=== PATIENT | female | born 1945 | race African-American/Black ===

== ENCOUNTER 2017-10-28 16:30 | Inpatient (IN) | payer MEDICARE ==
[2017-10-28] MEDS ORDERED: NORMAL SALINE 1000 ML 1,000 ML IV ONE ×2 (16:50→18:31)
[2017-10-28] MEDS ORDERED: ONDANSETRON 4 MG TAB.RAPDIS PO ONE (16:59)
--- NOTE | 2017-10-28 16:59 | ER Document Report ---
ED Medical Screen (RME) - General Chief Complaint: High Blood Sugar Stated Complaint: BLOOD SUGAR ISSUES Time Seen by Provider: 10/28/17 16:46 Notes: RAPID MEDICAL EVALUATION DISCLOSURE I have seen this patient as part of a Rapid Medical Evaluation and, if applicable, placed any initially appropriate orders. The patient will be seen and fully evaluated, including a full history and physical exam, by a provider ( in Main ED or Fast Track) when a room becomes available. 72F pmh DM here w c/o gen weakness feeling tired n/v epigastric pain ongoing past 3-4 days. She has been unable to keep her DM pills down 2/2 vomiting. She has been visiting her sister here in the hospital who is admitted for GI issues. Denies any cough congestion runny nose dysuria. EXAM Moderately tachycardic No abdominal TTP TRAVEL OUTSIDE OF THE [place] IN LAST 30 DAYS: No - Related Data Allergies/Adverse Reactions: No Known Allergies Allergy (Unverified 01/04/15 09:44) Past Medical History - Past Medical History Cardiac Medical History: Reports: Hx Hypertension - white coat syndrome Denies: Hx Heart Attack Pulmonary Medical History: Denies: Hx Asthma Neurological Medical History: Denies: Hx Cerebrovascular Accident, Hx Seizures GI Medical History: Denies: Hx Hepatitis, Hx Hiatal Hernia, Hx Ulcer Infectious Medical History: Denies: Hx Hepatitis Past Surgical History: Denies: Hx Mastectomy, Hx Open Heart Surgery, Hx Pacemaker Physical Exam - Vital signs Vitals: Temp Pulse Resp BP Pulse Ox 98.9 F 143 H 20 229/111 H 98 10/28/17 16:37 10/28/17 16:37 10/28/17 16:37 10/28/17 16:37 10/28/17 16:37 Course - Vital Signs Vital signs: Temp Pulse Resp BP Pulse Ox 98.9 F 143 H 20 229/111 H 98 10/28/17 16:37 10/28/17 16:37 10/28/17 16:37 10/28/17 16:37 10/28/17 16:37
[2017-10-28 17:22] LABS: HEMOGLOBIN 12.7 g/dL (12.0-15.5); MEAN CORPUSCULAR HGB CONC 34.4 g/dL (32.0-36.0); MEAN CORPUSCULAR VOLUME 96 fl (80-97); PLATELET COUNT 337 10^3/uL (150-450); RED BLOOD COUNT 3.85 10^6/uL (3.72-5.28); RED CELL DISTRIBUTION WIDTH 14.4 % (11.5-14.0)
[2017-10-28] MEDS ORDERED: METOPROLOL TARTRATE PF/INJ 5 MG/5 ML SDV IV ONE ×2 (17:34→19:02)
[2017-10-28 17:37] LABS: ABSOLUTE LYMPHOCYTES# (MANUAL) 0.3 10^3/uL (0.5-4.7); ABSOLUTE MONOCYTES # (MANUAL) 0.1 10^3/uL (0.1-1.4); ABSOLUTE NEUTROPHILS# (MANUAL) 8.6 10^3/uL (1.7-8.2); BAND NEUTROPHILS % (MANUAL) 2 % (3-5); BASOPHILS % (MANUAL) 0 % (0-2); EOSINOPHILS % (MANUAL) 0 % (0-6); LYMPHOCYTES % (MANUAL) 3 % (13-45); MONOCYTES % (MANUAL) 1 % (3-13); SEGMENTED NEUTROPHILS % (MAN) 94 % (42-78); TOTAL CELLS COUNTED 100; VENOUS BLOOD BASE EXCESS -2.1 mmol/L; VENOUS BLOOD HCO3 23.3 mmol/L (20-32); VENOUS BLOOD PCO2 42.5 mmHg (35-63); VENOUS BLOOD PH 7.36 (7.30-7.42)
[2017-10-28 17:39] LABS: ANISOCYTOSIS SLIGHT; PLATELET COMMENT ADEQUATE; TOXIC VACUOLATION PRESENT
--- NOTE | 2017-10-28 18:11 | ER Document Report ---
ED General - General Chief Complaint: High Blood Sugar Stated Complaint: BLOOD SUGAR ISSUES Time Seen by Provider: 10/28/17 16:46 Notes: Patient was noted by her family members today to the speaking incoherently. She was here at [facility] visiting her sister who is an inpatient. Patient is a diabetic on pills alone, and has had a previous episode like this when her blood sugar was very high. She has also been sick this past week, unable to take her medicines because of an upset stomach. She has vomited 2 or 3 times during this week. Not eating or drinking well. Denies any fever. Family says that she has had chills. No apparent UTI symptoms and does not get frequent UTIs. PMH: Hypertension, NIDDM. TRAVEL OUTSIDE OF THE [place] IN LAST 30 DAYS: No - Related Data Allergies/Adverse Reactions: No Known Allergies Allergy (Unverified 01/04/15 09:44) Past Medical History - Social History Smoking Status: Never Smoker Chew tobacco use (# tins/day): No Frequency of alcohol use: None Drug Abuse: None Family History: Reviewed & Not Pertinent Patient has suicidal ideation: No Patient has homicidal ideation: No - Past Medical History Cardiac Medical History: Reports: Hx Hypertension - white coat syndrome Infectious Medical History: Denies: Hx Hepatitis Surgical Hx: Negative Review of Systems - Review of Systems Notes: REVIEW OF SYSTEMS: CONSTITUTIONAL : Denies fever but has had chills. EENT: Denies eye, ear, nose or mouth or throat pain or other symptoms. CARDIOVASCULAR: Denies chest pain. RESPIRATORY: Denies cough, chest congestion, or shortness of breath. GASTROINTESTINAL: Denies abdominal pain. Has had vomiting about 3 times. No diarrhea. GENITOURINARY: Denies difficulty or painful urinating, urinary frequency, blood in urine. MUSCULOSKELETAL: Denies back or neck pain. Denies joint pain or swelling. SKIN: Denies rash or skin lesions. NEUROLOGICAL: See HPI. Confused, according to the family. Denies headache. Denies sensory loss or motor deficits. ALL OTHER SYSTEMS REVIEWED AND NEGATIVE. Physical Exam - Vital signs Vitals: Temp Pulse Resp BP Pulse Ox 98.9 F 143 H 20 229/111 H 98 10/28/17 16:37 10/28/17 16:37 10/28/17 16:37 10/28/17 16:37 10/28/17 16:37 Initial heart rate 143. Blood pressure 229/111 in triage. Subsequently systolic blood pressure of 265. Interpretation: Hypertensive, Tachycardic. No: Hypoxic, Tachypneic, Febrile - Notes Notes: PHYSICAL EXAMINATION: GENERAL: Well-appearing, in no acute distress. Laying on the stretcher with her eyes closed. Seems to understand all questions that are being asked of her and follows commands appropriately. HEAD: Atraumatic, normocephalic. EYES: Pupils equal round and reactive to light, extraocular movements intact. ENT: oropharynx clear without exudates. Moist mucous membranes. NECK: Normal range of motion, supple. LUNGS: Breath sounds clear and equal bilaterally. HEART: Regular rate and rhythm without murmurs. Heart rate about 130 at the bedside by me. ABDOMEN: Soft, nontender. No guarding or rebound. No masses. No bruits heard. BACK: No tenderness throughout entire back. EXTREMITIES: Normal range of motion without pain. No swelling. NEUROLOGICAL: Normal speech, gait not tested. Normal sensory, motor, and reflex exams. Awake, alert, and oriented x3. PSYCH: Normal mood, normal affect. SKIN: Warm, dry, no rashes. Course - Re-evaluation Re-evalutation: 10/28/17 20:00 Since arrival, patient received 5 mg of Lopressor IV but not showing much effect from that medication. She was then given 10 mg of Lopressor IV. She still continued to have blood pressure of 216/114 with a heart rate of 109. Patient had an episode of substernal chest pain which she had not had earlier in her ER visit. Spoke with Dr. Ansari, and the hospitalist on-call, and he will admit the patient to ICU for hypertensive emergency. After I went back to tell the patient how we plan to handle her care with an admission to ICU, patient said that she was feeling much better and noted that her systolic blood pressure now was 170 and her heart rate was down to 107. Patient has her eyes open and is smiling and says she feels much better. - Vital Signs Vital signs: Temp Pulse Resp BP Pulse Ox 98.9 F 143 H 18 228/118 H 99 10/28/17 16:37 10/28/17 16:37 10/28/17 18:02 10/28/17 18:02 10/28/17 17:21 - Laboratory Result Diagrams: 10/28/17 17:07 10/28/17 18:17 Laboratory results interpreted by me: 10/28/17 10/28/17 10/28/17 16:48 17:07 17:07 RDW 14.4 H Seg Neuts % (Manual) 94 H Band Neutrophils % 2 L Lymphocytes % (Manual) 3 L Monocytes % (Manual) 1 L Abs Neuts (Manual) 8.6 H Abs Lymphs (Manual) 0.3 L Sodium Chloride BUN Est GFR (Non-Af Amer) Glucose POC Glucose 338 H Lactic Acid 2.9 H Total Protein TSH Free T4 Urine Protein Urine Glucose (UA) Urine Ketones Urine Blood Ur Leukocyte Esterase 10/28/17 10/28/17 10/28/17 18:17 18:17 19:02 RDW Seg Neuts % (Manual) Band Neutrophils % Lymphocytes % (Manual) Monocytes % (Manual) Abs Neuts (Manual) Abs Lymphs (Manual) Sodium 131.9 L Chloride 89 L BUN 25 H Est GFR (Non-Af Amer) 50 L Glucose 330 H POC Glucose Lactic Acid Total Protein 8.6 H TSH 0.19 L Free T4 2.40 H Urine Protein 100 H Urine Glucose (UA) >=500 H Urine Ketones 20 H Urine Blood SMALL H Ur Leukocyte Esterase MODERATE H - Diagnostic Test Radiology results interpreted by me: 10/28/17 18:47 Chest x-ray is unremarkable. No acute findings. - EKG Interpretation by Ny EKG shows normal: Sinus rhythm Rate: Tachycardia Rhythm: NSR Critical Care Note - Critical Care Note Total time excluding time spent on procedures (mins): 50 Discharge - Discharge Clinical Impression: Hypertension, Hypertensive emergency, Hyperglycemia, Hyponatremia Condition: Serious Disposition: ADMITTED INPATIENT Admitting Provider: Hospitalist Unit Admitted: ICU
--- NOTE | 2017-10-28 18:16 | RADIOLOGY REPORT (SQ) ---
EXAM DESCRIPTION: CHEST 2 VIEWS COMPLETED DATE/TIME: 10/28/2017 6:06 pm REASON FOR STUDY: elevated BS; eval pneumonia COMPARISON: None. EXAM PARAMETERS: NUMBER OF VIEWS: two views TECHNIQUE: Digital Frontal and Lateral radiographic views of the chest acquired. RADIATION DOSE: NA LIMITATIONS: none FINDINGS: LUNGS AND PLEURA: No opacities, masses or pneumothorax. No pleural effusion. MEDIASTINUM AND HILAR STRUCTURES: No masses or contour abnormalities. HEART AND VASCULAR STRUCTURES: Heart normal size. No evidence for failure. BONES: No acute findings. HARDWARE: None in the chest. OTHER: Distended stomach. IMPRESSION: NO ACUTE RADIOGRAPHIC FINDING IN THE CHEST. TECHNICAL DOCUMENTATION: JOB ID: [id number] [employer]- All Rights Reserved Reading location - IP/workstation name: [email or web address]
[2017-10-28] MEDS ORDERED: CEFTRIAXONE INJ 1000 MG VIAL IV ONE (18:28)
--- NOTE | 2017-10-28 18:29 | EKG REPORT ---
SEVERITY:- OTHERWISE NORMAL ECG - SINUS TACHYCARDIA : Confirmed by: Deonte Mora MD 28-Oct-2017 18:29:08
[2017-10-28 18:42] LABS: ALANINE AMINOTRANSFERASE 19 U/L (9-52); ALBUMIN 4.4 g/dL (3.5-5.0); ALKALINE PHOSPHATASE 111 U/L (38-126); ANION GAP 18 (5-19); ASPARTATE AMINO TRANSFERASE 20 U/L (14-36); BILIRUBIN,DIRECT 0.4 mg/dL (0.0-0.4); BILIRUBIN,TOTAL 0.6 mg/dL (0.2-1.3); BLOOD UREA NITROGEN 25 mg/dL (7-20); CARBON DIOXIDE 25 mmol/L (22-30); CHLORIDE 89 mmol/L (98-107); GLUCOSE 330 mg/dL (75-110); LIPASE 70.1 U/L (23-300); POTASSIUM 4.6 mmol/L (3.6-5.0); SODIUM 131.9 mmol/L (137-145); TOTAL PROTEIN 8.6 g/dL (6.3-8.2)
--- NOTE | 2017-10-28 18:50 | RADIOLOGY REPORT (SQ) ---
EXAM DESCRIPTION: CT HEAD WITHOUT COMPLETED DATE/TIME: 10/28/2017 6:41 pm REASON FOR STUDY: Confused, severely elevated blood pressure COMPARISON: None. TECHNIQUE: Axial images acquired through the brain without intravenous contrast. Images reviewed wi th bone, brain and subdural windows. Additional sagittal and coronal reconstructions were generated. Images stored on PACS. All CT scanners at this facility use dose modulation, iterative reconstruction, and/or weight based d osing when appropriate to reduce radiation dose to as low as reasonably achievable (ALARA). [facility]: Dose Right [facility]: CareDose [facility]: Dose Right [facility]: Teradose 4D [facility]: Smart [employer] RADIATION DOSE: CT Rad equipment meets quality standard of care and radiation dose reduction techniq ues were employed. CTDIvol: 53.2 mGy. DLP: 937 mGy-cm. mGy. LIMITATIONS: None. FINDINGS: VENTRICLES: Normal size and contour. CEREBRUM: No masses. No hemorrhage. No midline shift. No evidence for acute infarction. Normal gra y/white matter differentiation. No areas of low density in the white matter. CEREBELLUM: No masses. No hemorrhage. No alteration of density. No evidence for acute infarction. EXTRAAXIAL SPACES: No fluid collections. No masses. ORBITS AND GLOBE: No intra- or extraconal masses. Normal contour of globe without masses. CALVARIUM: No fracture. PARANASAL SINUSES: No fluid or mucosal thickening. SOFT TISSUES: No mass or hematoma. OTHER: No other significant finding. IMPRESSION: NORMAL BRAIN CT WITHOUT CONTRAST. EVIDENCE OF ACUTE STROKE: NO. COMMENT: Quality ID # [id number]: Final reports with documentation of one or more dose reduction techniques (e.g., Automated exposure control, adjustment of the mA and/or kV according to patient size, use of iterative reconstruction technique) TECHNICAL DOCUMENTATION: JOB ID: [id number] [employer]- All Rights Reserved Reading location - IP/workstation name: [email or web address]
[2017-10-28] MEDS ORDERED: MAG HYDROX/AL HYDROX/SIMETH SUSP 30 ML UDCUP PO ONE (19:19)
[2017-10-28] MEDS ORDERED: ACETAMINOPHEN 325 MG TABLET PO ONE (19:19)
[2017-10-28] MEDS ORDERED: MORPHINE SULFATE 10 MG/ML INJ IV ONE (19:24)
[2017-10-28 19:38] LABS: AMORPHOUS SEDIMENT,URINE TRACE /HPF; APPEARANCE,URINE CLEAR; BILIRUBIN,URINE NEGATIVE (NEGATIVE); COLOR,URINE YELLOW; GLUCOSE, URINE >=500 mg/dL (NEGATIVE); KETONES,URINE 20 mg/dL (NEGATIVE); LEUKOCYTE ESTERASE,URINE MODERATE (NEGATIVE); NITRITE,URINE NEGATIVE (NEGATIVE); PROTEIN,URINE 100 mg/dL (NEGATIVE); URINE SPECIFIC GRAVITY 1.013; UROBILINOGEN,URINE NEGATIVE mg/dL (<2.0)
[2017-10-28 19:46] LABS: CREATINE KINASE MB 2.08 ng/mL (<4.55)
[2017-10-28 19:52] LABS: TROPONIN I 0.051 ng/mL
[2017-10-28] MEDS ORDERED: HYDRALAZINE HCL INJ/PF 20 MG/1 ML SDV IV PRN (20:01)
[2017-10-28] MEDS ORDERED: ENALAPRILAT DIHYDRATE INJ/PF 1.25 MG/1 ML SDV IV ONE (20:01)
[2017-10-28] MEDS ORDERED: CLONIDINE HCL 0.2 MG TABLET PO ONE (20:02)
[2017-10-28] MEDS ORDERED: IPRATROPIUM/ALBUTEROL 0.5-2.5 MG/3 ML AMPUL NEB PRN (20:04)
[2017-10-28] MEDS ORDERED: MAGNESIUM HYDROXIDE SUSP 30 ML UDCUP PO PRN (20:04)
[2017-10-28] MEDS ORDERED: DEXTROSE 50%-WATER 25 GM/50 ML DISP.SYRIN IV PRN ×2 (20:07)
[2017-10-28] MEDS ORDERED: DEXTROSE 40% GEL 15 GM TUBE PO PRN ×2 (20:07)
[2017-10-28] MEDS ORDERED: GLUCAGON,HUMAN RECOMB 1 MG INJ IM PRN (20:07)
[2017-10-28 20:10] LABS: FREE T4 (FREE THYROXINE) 2.4 ng/dL (0.78-2.19)
[2017-10-28 20:24] LABS: THYROID STIMULATING HORMONE 0.19 uIU/mL (0.47-4.68)
[2017-10-28] MEDS: ATORVASTATIN CALCIUM 10 MG TABLET PO SCH (23:12)
[2017-10-28] MEDS: HEPARIN SOD (PORCINE) 5,000 UNIT/ML 1 ML SYRINGE SUBCUT SCH (23:13)
[2017-10-29 01:48] LABS: CREATINE KINASE MB 2.59 ng/mL (<4.55)
[2017-10-29 01:49] LABS: TROPONIN I 0.105 ng/mL
--- NOTE | 2017-10-29 04:43 | PDOC H&P ---
History of Present Illness Admission Date/PCP: 10/28/17 20:21 MORENA WAYNE MD Patient complains of: Nausea vomiting and headache History of Present Illness: VIVI WATTS is a 72 year old female with a history of hypertension and diabetes. Patient presents after several days without medication during which she was at the bedside of her sister in the hospital. She was noted to have 24 hours of nausea, headache and vomiting of gastric content 1. In the emergency room she is found to have a blood pressure of 259/139 and a pulse of 145 and chest tightness. She has an otherwise unremarkable workup, receives 15 mg of IV Lopressor and referred to the hospitalist for admission. Currently denies chest pain, shortness of breath, palpitations or nausea vomiting with a blood pressure of 180/100 and a pulse of 98. She admits missing medications for 48 hours including clonidine. Past Medical History Cardiac Medical History: Reports: Hypertension - white coat syndrome Denies: Myocardial Infarction Pulmonary Medical History: Denies: Asthma Neurological Medical History: Denies: Seizures Endocrine Medical History: Reports: Diabetes Mellitus Type 2 GI Medical History: Denies: Hepatitis, Hiatal Hernia Psychiatric Medical History: Denies: Depression Hematology: Denies: Anemia, Sickle Cell Disease Past Surgical History Past Surgical History: Reports: None Denies: Amputation, Mastectomy, Pacemaker Social History Information Source: Patient Smoking Status: Former Smoker Frequency of Alcohol Use: None Hx Recreational Drug Use: No Drugs: None Hx Prescription Drug Abuse: No - Advance Directive Resuscitation Status: Full Code Family History Family History: CAD, DM, Hypertension Parental Family History Reviewed: Yes Children Family History Reviewed: Yes Sibling(s) Family History Reviewed.: Yes Medication/Allergy Home Medications: Atorvastatin Calcium [Lipitor] 10 mg PO DAILY 01/04/15 Clonidine HCl [Catapres 0.2 mg Tablet] 0.2 mg PO Q8 01/04/15 Aspirin [Aspirin EC] 81 mg PO DAILY 10/28/17 Lisinopril/Hydrochlorothiazide [Lisinopril-Hctz 20-12.5 mg Tab] 1 each PO DAILY 10/28/17 Metformin HCl [Glucophage 500 mg Tablet] 500 mg PO BIDACBS 10/28/17 Multivitamin [Tab-A-Malorie (Multiple Vitamin) Tablet] 1 tab PO DAILY 10/28/17 Allergies/Adverse Reactions: No Known Allergies Allergy (Unverified 01/04/15 09:44) Review of Systems Constitutional: PRESENT: as per HPI, fatigue, headache(s). ABSENT: fever(s), night sweats, weakness Eyes: ABSENT: visual disturbances Ears: ABSENT: hearing changes Cardiovascular: PRESENT: as per HPI, chest pain, palpitations. ABSENT: dyspnea on exertion, edema, orthropnea Respiratory: ABSENT: cough, hemoptysis Gastrointestinal: PRESENT: nausea, vomiting. ABSENT: abdominal pain, constipation, diarrhea, hematemesis, hematochezia Genitourinary: PRESENT: as per HPI Musculoskeletal: ABSENT: joint swelling Integumentary: ABSENT: rash, wounds Neurological: PRESENT: as per HPI, confusion. ABSENT: abnormal gait, abnormal speech, dizziness, focal weakness, syncope, tingling, tremor(s), vertigo, weakness Psychiatric: ABSENT: anxiety, depression, homidical ideation, suicidal ideation Endocrine: ABSENT: cold intolerance, heat intolerance, polydipsia, polyuria Hematologic/Lymphatic: ABSENT: easy bleeding, easy bruising Physical Exam Vital Signs: Temp Pulse Resp BP Pulse Ox 98.0 F 95 18 129/63 H 98 10/29/17 03:52 10/29/17 03:52 10/29/17 03:52 10/29/17 03:52 10/29/17 03:52 Intake & Output 10/27/17 10/28/17 10/29/17 11:59 11:59 11:59 Intake Total 0 Output Total 1650 Balance -1650 Weight 61.6 kg General appearance: PRESENT: no acute distress, well-developed, well-nourished Head exam: PRESENT: atraumatic, normocephalic Eye exam: PRESENT: conjunctiva pink, EOMI, PERRLA. ABSENT: scleral icterus Ear exam: PRESENT: normal external ear exam Mouth exam: PRESENT: moist, tongue midline Neck exam: ABSENT: carotid bruit, JVD, lymphadenopathy, thyromegaly Respiratory exam: PRESENT: clear to auscultation nena. ABSENT: rales, rhonchi, wheezes Cardiovascular exam: PRESENT: RRR. ABSENT: diastolic murmur, rubs, systolic murmur Pulses: PRESENT: normal dorsalis pedis pul Vascular exam: PRESENT: normal capillary refill GI/Abdominal exam: PRESENT: normal bowel sounds, soft. ABSENT: distended, guarding, mass, organolmegaly, rebound, tenderness Rectal exam: PRESENT: deferred Extremities exam: PRESENT: full ROM. ABSENT: calf tenderness, clubbing, pedal edema Neurological exam: PRESENT: alert, awake, oriented to person, oriented to place , oriented to time, oriented to situation, CN II-XII grossly intact. ABSENT: motor sensory deficit Psychiatric exam: PRESENT: appropriate affect, normal mood. ABSENT: homicidal ideation, suicidal ideation Skin exam: PRESENT: dry, intact, warm. ABSENT: cyanosis, rash Results Laboratory Results: 10/28/17 21:10 Lactic Acid 1.3 10/29/17 10/29/17 00:30 00:30 Creatine Kinase 83 CK-MB (CK-2) 2.59 Troponin I 0.105 Impressions: Chest X-Ray 10/28/17 16:50 IMPRESSION: NO ACUTE RADIOGRAPHIC FINDING IN THE CHEST. Head CT 10/28/17 18:16 IMPRESSION: NORMAL BRAIN CT WITHOUT CONTRAST. EVIDENCE OF ACUTE STROKE: NO. Assessment & Plan - Diagnosis (1) Hyperglycemia Is this a current diagnosis for this admission?: Yes Plan: Secondary to medication lifestyle noncompliance. Humalog sliding scale, follow- up A1c (2) Hypertensive emergency Is this a current diagnosis for this admission?: Yes Plan: IMCU admission, resume clonidine, MATT inhibitor, hydralazine as needed, follow- up trend cardiac enzymes given chest pain (3) Hyponatremia Is this a current diagnosis for this admission?: Yes Plan: Mild possible hyperglycemic error, reevaluate chemistry. - Time Time Spent: 50 to 70 Minutes - Inpatient Certification Medical Necessity: Need Close Monitoring Due to Risk of Patient Decompensation
[2017-10-29] MEDS: HEPARIN SOD (PORCINE) 5,000 UNIT/ML 1 ML SYRINGE SUBCUT SCH ×3 (06:25→20:44)
[2017-10-29] MEDS: CLONIDINE HCL 0.2 MG TABLET PO SCH ×3 (06:25→21:55)
[2017-10-29 06:35] LABS: ANION GAP 6 (5-19); BLOOD UREA NITROGEN 22 mg/dL (7-20); CALCIUM 8.9 mg/dL (8.4-10.2); CARBON DIOXIDE 32 mmol/L (22-30); CHLORIDE 99 mmol/L (98-107); CREATINE KINASE 81 U/L (30-135); GLUCOSE 281 mg/dL (75-110); POTASSIUM 4.5 mmol/L (3.6-5.0); SODIUM 136.9 mmol/L (137-145)
[2017-10-29 06:40] LABS: ABSOLUTE LYMPHOCYTES (AUTO) 0.9 10^3/uL (0.5-4.7); ABSOLUTE MONOCYTES (AUTO) 0.6 10^3/uL (0.1-1.4); ABSOLUTE NEUT (AUTO) 4.5 10^3/uL (1.7-8.2); BASOPHILS % (AUTO) 0.2 % (0-2); EOSINOPHILS % (AUTO) 0.2 % (0-6); LYMPHOCYTES % (AUTO) 15.1 % (13-45); MONOCYTES % (AUTO) 9.8 % (3-13); RED BLOOD COUNT 3.24 10^6/uL (3.72-5.28); SEGMENTED NEUTROPHILS % (AUTO) 74.7 % (42-78); TOTAL CELLS COUNTED % (AUTO) 100 %
[2017-10-29 06:41] LABS: HEMATOCRIT 31.1 % (36.0-47.0); HEMOGLOBIN 10.6 g/dL (12.0-15.5); WHITE BLOOD COUNT 6.3 10^3/uL (4.0-10.5)
[2017-10-29 06:43] LABS: MEAN CORPUSCULAR VOLUME 96 fl (80-97)
[2017-10-29 06:44] LABS: MEAN CORPUSCULAR HEMOGLOBIN 32.9 pg (27.0-33.4); MEAN CORPUSCULAR HGB CONC 34.2 g/dL (32.0-36.0); PLATELET COUNT 229 10^3/uL (150-450)
[2017-10-29 06:56] LABS: CREATINE KINASE MB 2.26 ng/mL (<4.55); TROPONIN I 0.089 ng/mL
[2017-10-29] MEDS: METFORMIN HCL 500 MG TABLET PO SCH ×2 (09:51→16:57)
[2017-10-29] MEDS: ASPIRIN 81 MG TABLET, CHEWABLE PO SCH (09:52)
[2017-10-29] MEDS: DOCUSATE SODIUM 100 MG CAPSULE PO SCH ×2 (09:55→13:44)
[2017-10-29] MEDS ORDERED: AMLODIPINE BESYLATE 5 MG TABLET PO SCH (10:00)
[2017-10-29 14:29] LABS: CREATINE KINASE MB 2.04 ng/mL (<4.55); TROPONIN I 0.057 ng/mL
[2017-10-29] MEDS: INSULIN LISPRO 100 UNIT/ML 3 ML VIAL SUBCUT PRN (16:58)
[2017-10-29] MEDS: BESIFLOXACIN HCL 0.6% OPH SUSP 5 ML BOTTLE OP SCH ×2 (17:00→20:38)
[2017-10-29] MEDS: ACETAMINOPHEN 325 MG TABLET PO PRN (19:40)
[2017-10-29] MEDS: ATORVASTATIN CALCIUM 10 MG TABLET PO SCH (21:55)
[2017-10-30 05:10] LABS: ABSOLUTE EOSINOPHILS # (AUTO) 0.1 10^3/uL (0.0-0.6); ABSOLUTE LYMPHOCYTES (AUTO) 1.7 10^3/uL (0.5-4.7); ABSOLUTE MONOCYTES (AUTO) 0.6 10^3/uL (0.1-1.4); ABSOLUTE NEUT (AUTO) 3.1 10^3/uL (1.7-8.2); BASOPHILS % (AUTO) 0.7 % (0-2); EOSINOPHILS % (AUTO) 1.6 % (0-6); HEMATOCRIT 31.7 % (36.0-47.0); HEMOGLOBIN 10.7 g/dL (12.0-15.5); LYMPHOCYTES % (AUTO) 30.5 % (13-45); MEAN CORPUSCULAR HEMOGLOBIN 32.6 pg (27.0-33.4); MEAN CORPUSCULAR HGB CONC 33.9 g/dL (32.0-36.0); MEAN CORPUSCULAR VOLUME 96 fl (80-97); MONOCYTES % (AUTO) 11.6 % (3-13); PLATELET COUNT 191 10^3/uL (150-450); RED BLOOD COUNT 3.29 10^6/uL (3.72-5.28); RED CELL DISTRIBUTION WIDTH 13.9 % (11.5-14.0); SEGMENTED NEUTROPHILS % (AUTO) 55.6 % (42-78); TOTAL CELLS COUNTED % (AUTO) 100 %; WHITE BLOOD COUNT 5.6 10^3/uL (4.0-10.5)
[2017-10-30] MEDS: HEPARIN SOD (PORCINE) 5,000 UNIT/ML 1 ML SYRINGE SUBCUT SCH ×3 (05:15→20:56)
[2017-10-30] MEDS: CLONIDINE HCL 0.2 MG TABLET PO SCH (05:18)
[2017-10-30] MEDS: ACETAMINOPHEN 325 MG TABLET PO PRN ×3 (05:20→22:22)
[2017-10-30 05:36] LABS: ANION GAP 8 (5-19); BLOOD UREA NITROGEN 27 mg/dL (7-20); CALCIUM 9.1 mg/dL (8.4-10.2); CARBON DIOXIDE 28 mmol/L (22-30); CHLORIDE 100 mmol/L (98-107); GLUCOSE 224 mg/dL (75-110); POTASSIUM 4.2 mmol/L (3.6-5.0); SODIUM 136.3 mmol/L (137-145)
[2017-10-30] MEDS: LISINOPRIL 10 MG TABLET PO SCH (08:14)
[2017-10-30] MEDS: ASPIRIN 81 MG TABLET, CHEWABLE PO SCH (08:15)
[2017-10-30] MEDS: METFORMIN HCL 500 MG TABLET PO SCH ×2 (08:15→15:49)
[2017-10-30] MEDS: DOCUSATE SODIUM 100 MG CAPSULE PO SCH ×2 (08:17→15:54)
--- NOTE | 2017-10-30 09:53 | PDOC PROGRESS REPORT ---
Subjective Progress Note for:: 10/30/17 Subjective:: Doing much better today. No chest pain or shortness of breath or palpitations. Patient with hyperglycemia and hemoglobin A1c of 10.3. She is refusing insulin. Denies excessive thirst, no polyuria polydipsia. Denies fever or chills. Reason For Visit: HTN EMERGENCY NAUSEA VOMITING HYPERGLYCEMIA Physical Exam Vital Signs: Temp Pulse Resp BP Pulse Ox 97.7 F 72 18 136/72 H 98 10/30/17 07:40 10/30/17 07:40 10/30/17 07:40 10/30/17 07:40 10/30/17 07:40 Intake & Output 10/29/17 10/30/17 10/31/17 06:59 06:59 06:59 Intake Total 1000 779 Output Total 2040 725 Balance -1040 54 Weight 60.7 kg 61.5 kg GEN: NAD, well-developed, well-nourished CV: RRR, NL S1S2 LUNGS: CTA bilaterally ABDOMEN Soft, NT, +BS EXTERMITIES: No e/c/c NEURO: Alert, oriented 3, nonfocal Results Laboratory Results: 10/30/17 04:48 10/30/17 04:48 10/30/17 10/30/17 04:48 04:48 WBC 5.6 RBC 3.29 L Hgb 10.7 L Hct 31.7 L MCV 96 MCH 32.6 MCHC 33.9 RDW 13.9 Plt Count 191 Seg Neutrophils % 55.6 Lymphocytes % 30.5 Monocytes % 11.6 Eosinophils % 1.6 Basophils % 0.7 Absolute Neutrophils 3.1 Absolute Lymphocytes 1.7 Absolute Monocytes 0.6 Absolute Eosinophils 0.1 Absolute Basophils 0.0 Sodium 136.3 L Potassium 4.2 Chloride 100 Carbon Dioxide 28 Anion Gap 8 BUN 27 H Creatinine 1.06 Est GFR ( Amer) > 60 Est GFR (Non-Af Amer) 51 L Glucose 224 H Calcium 9.1 10/29/17 10/29/17 10/29/17 00:30 00:30 06:05 Creatine Kinase 83 CK-MB (CK-2) 2.59 2.26 Troponin I 0.105 0.089 10/29/17 10/29/17 10/29/17 06:05 13:32 13:32 Creatine Kinase 81 95 CK-MB (CK-2) 2.04 Troponin I 0.057 Impressions: Chest X-Ray 10/28/17 16:50 IMPRESSION: NO ACUTE RADIOGRAPHIC FINDING IN THE CHEST. Head CT 10/28/17 18:16 IMPRESSION: NORMAL BRAIN CT WITHOUT CONTRAST. EVIDENCE OF ACUTE STROKE: NO. Assessment & Plan - Diagnosis (1) Hypertensive emergency Is this a current diagnosis for this admission?: Yes Plan: Blood pressure better controlled. Patient is on clonidine 0.2 mg every 8 hours. This is a poor choice of medication in someone who is noncompliant, as that could be rebound hypertension when she does not take. Also denies other medications that once a dayshe apparently has not taken. She is only on lisinopril/HCTZ 20/25 mg daily. -Will titrate off clonidine and continuous/HCTZ -We will add Norvasc 5 mg p.o. daily to medications if blood pressure spikes back up -Continue hydralazine as needed for uncontrolled hypertension -We will continue to monitor. (2) Hyperglycemia Is this a current diagnosis for this admission?: Yes Plan: Secondary to uncontrolled diabetes. See medication changes as the plan for diabetes. (3) Diabetes mellitus Qualifiers: Diabetes mellitus type: type 2 Diabetes mellitus mosquito sprayer insulin use: without longterm use Is this a current diagnosis for this admission?: Yes Plan: Diabetes is uncontrolled. Hemoglobin A1c 10.3. Patient refusing insulin. We will increase metformin to 1000 mg twice daily and start Januvia 50 mg twice daily. Dietary education. Continue sliding scale insulin while in the hospital.
[2017-10-30] MEDS ORDERED: SITAGLIPTIN PHOSPHATE 50 MG TABLET PO ONE (10:30)
[2017-10-30] MEDS: HYDROCHLOROTHIAZIDE 25 MG TABLET PO SCH (11:42)
[2017-10-30] MEDS: SITAGLIPTIN PHOSPHATE 50 MG TABLET PO SCH (15:49)
[2017-10-30] MEDS: BESIFLOXACIN HCL 0.6% OPH SUSP 5 ML BOTTLE OP SCH ×2 (15:51→20:39)
--- NOTE | 2017-10-30 20:21 | PDOC PROGRESS REPORT ---
Subjective Progress Note for:: 10/29/17 Subjective:: Patient was seen 10/29/17 following admission overnight. Doing better. Chest pain or shortness of breath or palpitations. Reason For Visit: HTN EMERGENCY,NAUSEA,VOMITING,HYPERGLYCEMIA Physical Exam Vital Signs: Temp Pulse Resp BP Pulse Ox 98.7 F 106 H 20 151/71 H 98 10/30/17 19:32 10/30/17 19:32 10/30/17 19:32 10/30/17 19:32 10/30/17 19:32 Intake & Output 10/29/17 10/30/17 10/31/17 06:59 06:59 06:59 Intake Total 632 Output Total 200 Balance 432 GEN: NAD, well-developed, well-nourished CV: RRR, NL S1S2 LUNGS: CTA bilaterally ABDOMEN Soft, NT, +BS EXTERMITIES: No e/c/c NEURO: Alert, oriented Results Impressions: Chest X-Ray 10/28/17 16:50 IMPRESSION: NO ACUTE RADIOGRAPHIC FINDING IN THE CHEST. Head CT 10/28/17 18:16 IMPRESSION: NORMAL BRAIN CT WITHOUT CONTRAST. EVIDENCE OF ACUTE STROKE: NO. Assessment & Plan - Diagnosis (1) Hypertensive emergency Is this a current diagnosis for this admission?: Yes (2) Hyperglycemia Is this a current diagnosis for this admission?: Yes (3) Diabetes mellitus Qualifiers: Diabetes mellitus type: type 2 Diabetes mellitus terminologist insulin use: without terminologist use Is this a current diagnosis for this admission?: Yes - Plan Summary Plan Summary: We will continue to monitor.
[2017-10-30] MEDS: ATORVASTATIN CALCIUM 10 MG TABLET PO SCH (22:22)
[2017-10-31] MEDS: HEPARIN SOD (PORCINE) 5,000 UNIT/ML 1 ML SYRINGE SUBCUT SCH ×3 (05:17→22:00)
[2017-10-31] MEDS: SITAGLIPTIN PHOSPHATE 50 MG TABLET PO SCH ×2 (07:44→15:50)
[2017-10-31] MEDS: ASPIRIN 81 MG TABLET, CHEWABLE PO SCH (07:45)
[2017-10-31] MEDS: METFORMIN HCL 500 MG TABLET PO SCH ×2 (07:45→15:50)
[2017-10-31] MEDS: HYDROCHLOROTHIAZIDE 25 MG TABLET PO SCH (07:45)
[2017-10-31] MEDS: DOCUSATE SODIUM 100 MG CAPSULE PO SCH ×2 (07:46→17:48)
[2017-10-31] MEDS: ACETAMINOPHEN 325 MG TABLET PO PRN (07:46)
[2017-10-31] MEDS: LISINOPRIL 10 MG TABLET PO SCH (07:47)
[2017-10-31] MEDS ORDERED: AMLODIPINE BESYLATE 5 MG TABLET PO SCH (10:00)
[2017-10-31] MEDS ORDERED: CARVEDILOL 6.25 MG TABLET PO ONE (11:00)
[2017-10-31] MEDS: INSULIN LISPRO 100 UNIT/ML 3 ML VIAL SUBCUT PRN (12:01)
--- NOTE | 2017-10-31 13:19 | PDOC PROGRESS REPORT ---
Subjective Progress Note for:: 10/31/17 Subjective:: Continues doing much better. No chest pain or shortness of breath or palpitations. Patient with hyperglycemia and hemoglobin A1c of 10.3. She is going to refuse insulin. Denies excessive thirst, no polyuria polydipsia. Denies fever or chills. Started on Januvia yesterday and metformin dose increased starting from this morning. Reason For Visit: HTN EMERGENCY,NAUSEA,VOMITING,HYPERGLYCEMIA Physical Exam Vital Signs: Temp Pulse Resp BP Pulse Ox 98.6 F 138 H 18 147/77 H 100 10/31/17 11:36 10/31/17 11:36 10/31/17 11:36 10/31/17 11:36 10/31/17 11:36 Intake & Output 10/30/17 10/31/17 11/01/17 06:59 06:59 06:59 Intake Total 992 0 Output Total 675 900 Balance 317 -900 Weight 60.9 kg GEN: NAD, well-developed, well-nourished CV: RRR, NL S1S2 LUNGS: CTA bilaterally ABDOMEN Soft, NT, +BS EXTERMITIES: No e/c/c NEURO: Alert, oriented 3, nonfocal Results Impressions: Chest X-Ray 10/28/17 16:50 IMPRESSION: NO ACUTE RADIOGRAPHIC FINDING IN THE CHEST. Head CT 10/28/17 18:16 IMPRESSION: NORMAL BRAIN CT WITHOUT CONTRAST. EVIDENCE OF ACUTE STROKE: NO. Assessment & Plan - Diagnosis (1) Hypertensive emergency Is this a current diagnosis for this admission?: Yes Plan: Blood pressure up today. Patient was on clonidine 0.2 mg every 8 hours as outpatient. This is a poor choice of medication in someone who is noncompliant , as skipping doses can cause rebound hypertension. Also there are other medications that once a day she apparently has not taken. She wass only on lisinopril/HCTZ 20/25 mg daily. -I have discontinued clonidine and continued lisinopril/HCTZ -Shaped Norvasc 5 mg p.o. daily this morning but I'll change to Cardizem due to tachycardia -Patient with apparently reflects tachycardia following as needed dose of hydralazine --will stop and treat with Cardizem 30 mg mg every 6 for now. We will also treat with Coreg 6.25 mg every 12. We change Cardizem to long-acting beta in the regimen in a.m. if doing better. -We will continue to monitor patient. (2) Diabetes mellitus Qualifiers: Diabetes mellitus type: type 2 Diabetes mellitus jail insulin use: without sales assistant institutional sales use Is this a current diagnosis for this admission?: Yes Plan: Diabetes is uncontrolled. Hemoglobin A1c 10.3. Patient refusing insulin. We will increase metformin to 1000 mg twice daily and start Januvia 50 mg twice daily. Dietary education. Continue sliding scale insulin while in the hospital. (3) Hyperglycemia Is this a current diagnosis for this admission?: Yes Plan: Secondary to uncontrolled diabetes. See medication changes as the plan for diabetes.
[2017-10-31] MEDS: BESIFLOXACIN HCL 0.6% OPH SUSP 5 ML BOTTLE OP SCH ×2 (15:52→22:19)
[2017-10-31] MEDS ORDERED: DILTIAZEM HCL 30 MG TABLET PO SCH (18:00)
[2017-10-31] MEDS: CARVEDILOL 12.5 MG TABLET PO SCH (20:30)
[2017-10-31] MEDS ORDERED: CARVEDILOL 6.25 MG TABLET PO SCH (22:00)
[2017-10-31] MEDS: ATORVASTATIN CALCIUM 10 MG TABLET PO SCH (22:00)
[2017-11-01] MEDS ORDERED: METOPROLOL TARTRATE PF/INJ 5 MG/5 ML SDV IV ONE ×2 (03:48→04:00)
[2017-11-01 05:09] LABS: ABSOLUTE LYMPHOCYTES (AUTO) 0.8 10^3/uL (0.5-4.7); ABSOLUTE MONOCYTES (AUTO) 0.4 10^3/uL (0.1-1.4); ABSOLUTE NEUT (AUTO) 4.2 10^3/uL (1.7-8.2); BASOPHILS % (AUTO) 0.7 % (0-2); EOSINOPHILS % (AUTO) 0.2 % (0-6); HEMATOCRIT 37.4 % (36.0-47.0); HEMOGLOBIN 12.6 g/dL (12.0-15.5); MEAN CORPUSCULAR HEMOGLOBIN 32.5 pg (27.0-33.4); MEAN CORPUSCULAR HGB CONC 33.7 g/dL (32.0-36.0); MEAN CORPUSCULAR VOLUME 96 fl (80-97); MONOCYTES % (AUTO) 6.8 % (3-13); PLATELET COUNT 225 10^3/uL (150-450); RED BLOOD COUNT 3.88 10^6/uL (3.72-5.28); RED CELL DISTRIBUTION WIDTH 13.9 % (11.5-14.0); SEGMENTED NEUTROPHILS % (AUTO) 78.3 % (42-78); TOTAL CELLS COUNTED % (AUTO) 100 %; WHITE BLOOD COUNT 5.4 10^3/uL (4.0-10.5)
[2017-11-01 05:34] LABS: ANION GAP 13 (5-19); BLOOD UREA NITROGEN 23 mg/dL (7-20); CARBON DIOXIDE 30 mmol/L (22-30); CHLORIDE 95 mmol/L (98-107); GLUCOSE 268 mg/dL (75-110); POTASSIUM 4.4 mmol/L (3.6-5.0); SODIUM 137.6 mmol/L (137-145)
[2017-11-01] MEDS: HEPARIN SOD (PORCINE) 5,000 UNIT/ML 1 ML SYRINGE SUBCUT SCH ×3 (05:56→21:03)
[2017-11-01] MEDS: CARVEDILOL 12.5 MG TABLET PO SCH ×2 (07:49→20:03)
[2017-11-01] MEDS: SITAGLIPTIN PHOSPHATE 50 MG TABLET PO SCH ×2 (07:49→17:01)
[2017-11-01] MEDS: HYDROCHLOROTHIAZIDE 25 MG TABLET PO SCH (07:49)
[2017-11-01] MEDS: LISINOPRIL 10 MG TABLET PO SCH (07:49)
[2017-11-01] MEDS: METFORMIN HCL 500 MG TABLET PO SCH ×2 (07:51→17:00)
[2017-11-01] MEDS: ASPIRIN 81 MG TABLET, CHEWABLE PO SCH (10:19)
[2017-11-01] MEDS: DILTIAZEM HCL 120 MG CAP.SR.24H PO SCH (10:19)
[2017-11-01] MEDS: DOCUSATE SODIUM 100 MG CAPSULE PO SCH ×2 (10:19→17:00)
[2017-11-01] MEDS: BESIFLOXACIN HCL 0.6% OPH SUSP 5 ML BOTTLE OP SCH ×2 (14:15→20:05)
[2017-11-01] MEDS: ACETAMINOPHEN 325 MG TABLET PO PRN (17:01)
--- NOTE | 2017-11-01 17:44 | PDOC PROGRESS REPORT ---
Subjective Progress Note for:: 11/01/17 Subjective:: Continues doing better. No chest pain or shortness of breath.. Patient with hyperglycemia and hemoglobin A1c of 10.3. She continues to refuse insulin. Denies excessive thirst, no polyuria polydipsia. Denies fever or chills. Started on Januvia 10/30/17 and metformin dose increased 10/31/17. Unfortunately , patient still with specks of blood pressure and tachycardia. She is being taken off clonidine as she has history of noncompliance, causing her to have rebound hypertension. Reason For Visit: HTN EMERGENCY,NAUSEA,VOMITING,HYPERGLYCEMIA Physical Exam Vital Signs: Temp Pulse Resp BP Pulse Ox 98.9 F 109 H 18 144/84 H 99 11/01/17 11:52 11/01/17 14:00 11/01/17 11:52 11/01/17 15:57 11/01/17 11:52 Intake & Output 10/31/17 11/01/17 11/02/17 06:59 06:59 06:59 Intake Total 992 521 10 Output Total 675 1650 600 Balance 317 -1129 -590 Weight 60.9 kg 61.4 kg GEN: NAD, well-developed, well-nourished CV: Tachycardic, NL S1S2 LUNGS: CTA bilaterally ABDOMEN Soft, NT, +BS EXTERMITIES: No e/c/c NEURO: Alert, oriented 3, nonfocal Results Laboratory Results: 11/01/17 04:37 11/01/17 04:37 11/01/17 11/01/17 04:37 04:37 WBC 5.4 RBC 3.88 Hgb 12.6 Hct 37.4 MCV 96 MCH 32.5 MCHC 33.7 RDW 13.9 Plt Count 225 Seg Neutrophils % 78.3 H Lymphocytes % 14.0 Monocytes % 6.8 Eosinophils % 0.2 Basophils % 0.7 Absolute Neutrophils 4.2 Absolute Lymphocytes 0.8 Absolute Monocytes 0.4 Absolute Eosinophils 0.0 Absolute Basophils 0.0 Sodium 137.6 Potassium 4.4 Chloride 95 L Carbon Dioxide 30 Anion Gap 13 BUN 23 H Creatinine 0.96 Est GFR ( Amer) > 60 Est GFR (Non-Af Amer) 57 L Glucose 268 H Calcium 10.0 Magnesium 1.6 Impressions: Chest X-Ray 10/28/17 16:50 IMPRESSION: NO ACUTE RADIOGRAPHIC FINDING IN THE CHEST. Head CT 10/28/17 18:16 IMPRESSION: NORMAL BRAIN CT WITHOUT CONTRAST. EVIDENCE OF ACUTE STROKE: NO. Assessment & Plan - Diagnosis (1) Hypertensive emergency Is this a current diagnosis for this admission?: Yes Plan: Still with spikes of elevated blood pressures. Patient was on clonidine 0.2 mg every 8 hours as outpatient. This is a poor choice of medication in someone who is noncompliant, as skipping doses can cause rebound hypertension. Also there are other medications that are once or twice a day that she apparently had not taken. She wass only on lisinopril/HCTZ 20/25 mg daily in addition to the clonidine. -I have since discontinued clonidine and continued lisinopril/HCTZ -Started on Coreg and now on 12.5 mg every 12. -Also starting Cardizem ER 120 mg daily today -We will continue to monitor patient. (2) Diabetes mellitus Qualifiers: Diabetes mellitus type: type 2 Diabetes mellitus longterm insulin use: without termite control servicer use Is this a current diagnosis for this admission?: Yes Plan: Diabetes is uncontrolled. Hemoglobin A1c 10.3. Patient refusing insulin. I did increase metformin to 1000 mg twice daily this admission and started Januvia 50 mg twice daily. Continue dietary education. Continue sliding scale insulin while in the hospital, although patient usually refuses. (3) Hyperglycemia Is this a current diagnosis for this admission?: Yes Plan: Secondary to uncontrolled diabetes. See medication changes as the plan for diabetes.
[2017-11-01] MEDS: ONDANSETRON HCL INJ/PF 4 MG/2 ML SDV IV PRN (20:03)
[2017-11-01] MEDS: ATORVASTATIN CALCIUM 10 MG TABLET PO SCH (21:03)
[2017-11-01] MEDS ORDERED: TRAZODONE HCL 50 MG TABLET PO ONE (22:00)
[2017-11-02] MEDS ORDERED: LORAZEPAM INJ 2 MG/1 ML VIAL ONE (04:40)
[2017-11-02] MEDS ORDERED: LORAZEPAM INJ 2 MG/1 ML VIAL IV ONE (05:00)
[2017-11-02] MEDS: HEPARIN SOD (PORCINE) 5,000 UNIT/ML 1 ML SYRINGE SUBCUT SCH ×3 (05:43→22:47)
[2017-11-02] MEDS ORDERED: CARVEDILOL 12.5 MG TABLET PO ONE (07:00)
[2017-11-02] MEDS: METFORMIN HCL 500 MG TABLET PO SCH ×2 (10:12→17:27)
[2017-11-02] MEDS: ASPIRIN 81 MG TABLET, CHEWABLE PO SCH (10:13)
[2017-11-02] MEDS: HYDROCHLOROTHIAZIDE 25 MG TABLET PO SCH (10:13)
[2017-11-02] MEDS: DILTIAZEM HCL 120 MG CAP.SR.24H PO SCH (10:14)
[2017-11-02] MEDS: DOCUSATE SODIUM 100 MG CAPSULE PO SCH ×2 (10:14→17:28)
[2017-11-02] MEDS: SITAGLIPTIN PHOSPHATE 50 MG TABLET PO SCH ×2 (10:14→17:28)
[2017-11-02] MEDS: LISINOPRIL 10 MG TABLET PO SCH (10:15)
[2017-11-02] MEDS: ONDANSETRON HCL INJ/PF 4 MG/2 ML SDV IV PRN (10:47)
[2017-11-02] MEDS: ACETAMINOPHEN 325 MG TABLET PO PRN (10:47)
--- NOTE | 2017-11-02 11:33 | PDOC PROGRESS REPORT ---
Subjective Progress Note for:: 11/02/17 Subjective:: Patient was refusing to take her meds earlier She seems somewhat withdrawn No chest pain no shortness of breath She is awake Reason For Visit: HTN EMERGENCY,NAUSEA,VOMITING,HYPERGLYCEMIA Physical Exam Vital Signs: Temp Pulse Resp BP Pulse Ox 98.5 F 111 H 20 184/96 H 98 11/02/17 07:13 11/02/17 07:13 11/02/17 07:13 11/02/17 07:13 11/02/17 07:13 Intake & Output 11/01/17 11/02/17 11/03/17 00:59 00:59 00:59 Intake Total 671 442 910 Output Total 1600 850 300 Balance -929 -408 610 Weight 60.9 kg 61.4 kg 59.2 kg General appearance: PRESENT: no acute distress, well-developed, well-nourished Head exam: PRESENT: atraumatic, normocephalic Eye exam: PRESENT: conjunctiva pink, EOMI, PERRLA. ABSENT: scleral icterus Neck exam: ABSENT: carotid bruit, JVD, lymphadenopathy, thyromegaly Respiratory exam: PRESENT: clear to auscultation nena. ABSENT: rales, rhonchi, wheezes Cardiovascular exam: PRESENT: RRR, tachycardia. ABSENT: diastolic murmur, rubs , systolic murmur Vascular exam: PRESENT: normal capillary refill GI/Abdominal exam: PRESENT: normal bowel sounds, soft. ABSENT: distended, guarding, mass, organolmegaly, rebound, tenderness Extremities exam: PRESENT: full ROM. ABSENT: calf tenderness, clubbing, pedal edema Skin exam: PRESENT: dry, intact, warm. ABSENT: cyanosis, rash Results Laboratory Results: 11/01/17 04:37 11/01/17 04:37 Impressions: Chest X-Ray 10/28/17 16:50 IMPRESSION: NO ACUTE RADIOGRAPHIC FINDING IN THE CHEST. Head CT 10/28/17 18:16 IMPRESSION: NORMAL BRAIN CT WITHOUT CONTRAST. EVIDENCE OF ACUTE STROKE: NO. Assessment & Plan - Diagnosis (1) Diabetes mellitus Qualifiers: Diabetes mellitus type: type 2 Diabetes mellitus intermediate insulin use: without sample sawyer use Is this a current diagnosis for this admission?: Yes Plan: Continue present management (2) Hypertensive emergency Is this a current diagnosis for this admission?: Yes Plan: Blood pressure is still high patient had refused to take medications but she took her morning dose Patient is lives at home with her sister; she usually takes her med herself We will involve social security benefits interviewer and have a home nurse to check her blood pressure 3 times a week and make sure that the medications or taken as prescribed when discharged - Time Time Spent with patient: Discharge in a.m. if blood pressure is controlled Time Spent with patient: 25-34 minutes
[2017-11-02] MEDS: BESIFLOXACIN HCL 0.6% OPH SUSP 5 ML BOTTLE OP SCH ×2 (14:40→22:48)
[2017-11-02] MEDS: CARVEDILOL 12.5 MG TABLET PO SCH (22:47)
[2017-11-02] MEDS: ATORVASTATIN CALCIUM 10 MG TABLET PO SCH (22:48)
[2017-11-03] MEDS: HEPARIN SOD (PORCINE) 5,000 UNIT/ML 1 ML SYRINGE SUBCUT SCH (06:15)
[2017-11-03] MEDS: METFORMIN HCL 500 MG TABLET PO SCH (09:28)
[2017-11-03] MEDS: LISINOPRIL 10 MG TABLET PO SCH (09:29)
[2017-11-03] MEDS: ASPIRIN 81 MG TABLET, CHEWABLE PO SCH (09:29)
[2017-11-03] MEDS: HYDROCHLOROTHIAZIDE 25 MG TABLET PO SCH (09:30)
[2017-11-03] MEDS: DILTIAZEM HCL 120 MG CAP.SR.24H PO SCH (09:31)
[2017-11-03] MEDS: DOCUSATE SODIUM 100 MG CAPSULE PO SCH (09:33)
[2017-11-03] MEDS: SITAGLIPTIN PHOSPHATE 50 MG TABLET PO SCH (09:33)
[2017-11-03] MEDS: CARVEDILOL 12.5 MG TABLET PO SCH (09:33)
--- NOTE | 2017-11-03 13:20 | PDOC DISCHARGE SUMMARY ---
General - Admit/Disc Date/PCP Admission Date/Primary Care Provider: 10/30/17 14:31 MORENA WAYNE MD Discharge Date: 11/03/17 - Discharge Diagnosis (1) Diabetes mellitus Is this a current diagnosis for this admission?: Yes (2) Hypertensive emergency Is this a current diagnosis for this admission?: Yes - Additional Information Resuscitation Status: Full Code Discharge Diet: Cardiac, Diabetic Discharge Activity: Activity As Tolerated, Balance Activity w/Rest Prescriptions: Carvedilol [Coreg 12.5 mg Tablet] 25 mg PO Q12 30 Days #120 tablet Diltiazem HCl [Diltiazem 24Hr Cd] 180 mg PO DAILY 30 Days #30 cap.er.24h Metformin HCl [Glucophage 500 mg Tablet] 1,000 mg PO BIDACBS 30 Days #60 tablet Sitagliptin Phosphate [Januvia 50 mg Tablet] 50 mg PO BIDACBS 30 Days #30 tablet Home Medications: Atorvastatin Calcium [Lipitor] 10 mg PO DAILY 01/04/15 Aspirin [Aspirin EC] 81 mg PO DAILY 10/28/17 Lisinopril/Hydrochlorothiazide [Lisinopril-Hctz 20-12.5 mg Tab] 1 each PO DAILY 10/28/17 Multivitamin [Tab-A-Malorie (Multiple Vitamin) Tablet] 1 tab PO DAILY 10/28/17 Carvedilol [Coreg 12.5 mg Tablet] 25 mg PO Q12 30 Days #120 tablet 11/03/17 Diltiazem HCl [Diltiazem 24Hr Cd] 180 mg PO DAILY 30 Days #30 cap.er.24h Metformin HCl [Glucophage 500 mg Tablet] 1,000 mg PO BIDACBS 30 Days #60 tablet 11/03/17 Sitagliptin Phosphate [Januvia 50 mg Tablet] 50 mg PO BIDACBS 30 Days #30 tablet 11/03/17 History of Present Illness Patient complains of: Nausea headache vomiting. Has not been taken her medications several days History of Present Illness: VIVI Kathie WATTS is a 72 year old female with a history of hypertension and diabetes. Patient presents after several days without medication during which she was at the bedside of her sister in the hospital. She was noted to have 24 hours of nausea, headache and vomiting of gastric content 1. In the emergency room she is found to have a blood pressure of 259/139 and a pulse of 145 and chest tightness. She has an otherwise unremarkable workup, receives 15 mg of IV Lopressor and referred to the hospitalist for admission. Currently denies chest pain, shortness of breath, palpitations or nausea vomiting with a blood pressure of 180/100 and a pulse of 98. She admits missing medications for 48 hours including clonidine. Hospital Course Hospital Course: 1 diabetes mellitus Poorly controlled Hemoglobin A1c was over 10 10/30/17 11/02/17 11/02/17 04:48 05:59 11:37 POC Glucose 255 H 241 H Hemoglobin A1c % 10.3 H 11/02/17 11/02/17 11/03/17 15:53 21:27 05:30 POC Glucose 277 H 226 H 240 H Hemoglobin A1c % Patient was discharged on metformin thousand milligrams twice daily and Januvia 50 mg daily Patient is not a good candidate for insulin therapy Suggest close follow-up with primary care in a week time to reevaluate patient' s needs 2-hypertensive urgency Patient's medications were reevaluated Clonidine was discontinued Patient is being treated with Cardizem CD, lisinopril hydrochlorothiazide, and Coreg Blood pressure is controlled at discharge BP to be followed up in a week time Physical Exam Vital Signs: Temp Pulse Resp BP Pulse Ox 98.3 F 100 28 H 144/84 H 97 11/03/17 10:32 11/03/17 10:32 11/03/17 10:32 11/03/17 10:32 11/03/17 10:32 Intake & Output 11/02/17 11/03/17 11/04/17 00:59 00:59 00:59 Intake Total 442 1483 350 Output Total 850 800 500 Balance -408 683 -150 Weight 61.4 kg 59.2 kg 60.5 kg General appearance: PRESENT: no acute distress, well-developed, well-nourished Head exam: PRESENT: atraumatic, normocephalic Eye exam: PRESENT: conjunctiva pink, EOMI, PERRLA. ABSENT: scleral icterus Neck exam: ABSENT: carotid bruit, JVD, lymphadenopathy, thyromegaly Respiratory exam: PRESENT: clear to auscultation nena. ABSENT: rales, rhonchi, wheezes Cardiovascular exam: PRESENT: RRR, tachycardia. ABSENT: diastolic murmur, rubs , systolic murmur Vascular exam: PRESENT: normal capillary refill GI/Abdominal exam: PRESENT: normal bowel sounds, soft. ABSENT: distended, guarding, mass, organolmegaly, rebound, tenderness Extremities exam: PRESENT: full ROM. ABSENT: calf tenderness, clubbing, pedal edema Skin exam: PRESENT: dry, intact, warm. ABSENT: cyanosis, rash Results Laboratory Results: 11/01/17 04:37 11/01/17 04:37 EKG Comments: Sinus tachycardia no acute changes Impressions: Chest X-Ray 10/28/17 16:50 IMPRESSION: NO ACUTE RADIOGRAPHIC FINDING IN THE CHEST. Head CT 10/28/17 18:16 IMPRESSION: NORMAL BRAIN CT WITHOUT CONTRAST. EVIDENCE OF ACUTE STROKE: NO. Qualifiers - * PATIENT BEING DISCHARGED WITH ANY OF THE FOLLOWING DIAGNOSIS: No Plan Discharge Plan: We will discharge home Follow up with his primary care in a week Time Spent: Greater than 30 Minutes
[2017-11-03 15:03] VITALS: BP 144/84
== END 2017-11-03 11:56 | disposition home health service (06) | DRG 305 ==
LOC: ER 16:30 → INTOOBSV 20:21 → EH 20:21 → 3W 21:40 → OBSVTOIN 10-30 14:31
PROVIDERS: ADMIT Internal Medicine; ATTEND Internal Medicine
DX: I16.0 Hypertensive urgency (principal); E87.1 Hypo-osmolality and hyponatremia; E11.65 Type 2 diabetes mellitus with hyperglycemia; I10 Essential (primary) hypertension; Z91.14 Patient's other noncompliance with medication regimen
CPT/HCPCS: 36415; 51702; 70450; 71046; 80048; 80053; 81001; 82010; 82550; 82553; 82803; 82962; 83036; 83605; 83690; 83735; 83880; 84439; 84443; 84484; 85025; 87040; 87086; 87088; 87186; 93005; 93010; 96361; 96365; 96375; 96376; 99285; G0378; G8978-GP; G8979-GP; J0360; J0696; J1644; J1815; J2060; J2270; J2405; J3490; J7030; S0119

== ENCOUNTER 2017-11-03 15:53 | Inpatient (IN) | payer MEDICARE ==
--- NOTE | 2017-11-03 16:19 | RADIOLOGY REPORT (SQ) ---
EXAM DESCRIPTION: CT HEAD WITHOUT COMPLETED DATE/TIME: 11/03/2017 4:06 pm REASON FOR STUDY: stroke s/s COMPARISON: 10/28/2017 TECHNIQUE: Axial images acquired through the brain without intravenous contrast. Images reviewed wi th bone, brain and subdural windows. Additional sagittal and coronal reconstructions were generated. Images stored on PACS. All CT scanners at this facility use dose modulation, iterative reconstruction, and/or weight based d osing when appropriate to reduce radiation dose to as low as reasonably achievable (ALARA). [facility]: Dose Right [facility]: CareDose [facility]: Dose Right [facility]: Teradose 4D [facility]: Social Genius RADIATION DOSE: mGy. LIMITATIONS: None. FINDINGS: VENTRICLES: Normal size and contour. CEREBRUM: No masses. No hemorrhage. No midline shift. No evidence for acute infarction. Normal gra y/white matter differentiation. No areas of low density in the white matter. CEREBELLUM: No masses. No hemorrhage. No alteration of density. No evidence for acute infarction. EXTRAAXIAL SPACES: No fluid collections. No masses. ORBITS AND GLOBE: No intra- or extraconal masses. Normal contour of globe without masses. CALVARIUM: No fracture. PARANASAL SINUSES: No fluid or mucosal thickening. SOFT TISSUES: No mass or hematoma. OTHER: No other significant finding. IMPRESSION: NORMAL BRAIN CT WITHOUT CONTRAST. EVIDENCE OF ACUTE STROKE: NO. COMMENT: Pertinent positive or negative findings of the imaging study reported as a CRITICAL EXAM t o ER PROVIDER Dr. Gallagher at16:10 on 11/03/2017. Category of Critical Exam: Stroke alert Quality ID # [id number]: Final reports with documentation of one or more dose reduction techniques (e.g., Au tomated exposure control, adjustment of the mA and/or kV according to patient size, use of iterative reconstruction technique) TECHNICAL DOCUMENTATION: JOB ID: [id number] [employer]- All Rights Reserved Reading location - IP/workstation name: [email or web address]
[2017-11-03 16:25] LABS: INTERNATIONAL RATION (INR) 0.92
--- NOTE | 2017-11-03 16:25 | RADIOLOGY REPORT (SQ) ---
EXAM DESCRIPTION: CHEST SINGLE VIEW COMPLETED DATE/TIME: 11/03/2017 4:12 pm REASON FOR STUDY: stroke s/s COMPARISON: Two-view chest 10/28/2017 EXAM PARAMETERS: NUMBER OF VIEWS: One view. TECHNIQUE: Single frontal radiographic view of the chest acquired. RADIATION DOSE: NA LIMITATIONS: None. FINDINGS: LUNGS AND PLEURA: No opacities, masses or pneumothorax. No pleural effusion. MEDIASTINUM AND HILAR STRUCTURES: No masses. Contour normal. HEART AND VASCULAR STRUCTURES: Heart normal in size. Normal vasculature. BONES: No acute findings. HARDWARE: None in the chest. OTHER: No other significant finding. IMPRESSION: NO ACUTE RADIOGRAPHIC FINDING IN THE CHEST. TECHNICAL DOCUMENTATION: JOB ID: [id number] [employer]- All Rights Reserved Reading location - IP/workstation name: [email or web address]
[2017-11-03 16:28] LABS: PROTHROMBIN TIME 12.8 SEC (11.4-15.4)
[2017-11-03 16:31] LABS: ABSOLUTE MONOCYTES (AUTO) 0.5 10^3/uL (0.1-1.4); ABSOLUTE NEUT (AUTO) 3.9 10^3/uL (1.7-8.2); BASOPHILS % (AUTO) 0.5 % (0-2); EOSINOPHILS % (AUTO) 0.7 % (0-6); HEMATOCRIT 37.2 % (36.0-47.0); HEMOGLOBIN 12.5 g/dL (12.0-15.5); LYMPHOCYTES % (AUTO) 17.8 % (13-45); MEAN CORPUSCULAR HGB CONC 33.6 g/dL (32.0-36.0); MEAN CORPUSCULAR VOLUME 95 fl (80-97); MONOCYTES % (AUTO) 9.2 % (3-13); PLATELET COUNT 337 10^3/uL (150-450); RED BLOOD COUNT 3.91 10^6/uL (3.72-5.28); RED CELL DISTRIBUTION WIDTH 13.7 % (11.5-14.0); SEGMENTED NEUTROPHILS % (AUTO) 71.8 % (42-78); TOTAL CELLS COUNTED % (AUTO) 100 %; WHITE BLOOD COUNT 5.5 10^3/uL (4.0-10.5)
[2017-11-03 16:36] LABS: ALANINE AMINOTRANSFERASE 31 U/L (9-52); ALBUMIN 3.8 g/dL (3.5-5.0); ALKALINE PHOSPHATASE 93 U/L (38-126); ANION GAP 12 (5-19); ASPARTATE AMINO TRANSFERASE 29 U/L (14-36); BILIRUBIN,DIRECT 0.3 mg/dL (0.0-0.4); BILIRUBIN,TOTAL 0.8 mg/dL (0.2-1.3); BLOOD UREA NITROGEN 35 mg/dL (7-20); CALCIUM 9.1 mg/dL (8.4-10.2); CARBON DIOXIDE 28 mmol/L (22-30); CHLORIDE 83 mmol/L (98-107); CREATINE KINASE 71 U/L (30-135); GLUCOSE 184 mg/dL (75-110); POTASSIUM 4.3 mmol/L (3.6-5.0); SODIUM 122.6 mmol/L (137-145); TOTAL PROTEIN 7.5 g/dL (6.3-8.2)
[2017-11-03 16:47] LABS: TROPONIN I < 0.012 ng/mL
[2017-11-03] MEDS ORDERED: NORMAL SALINE 1000 ML 1,000 ML IV ONE (16:55)
--- NOTE | 2017-11-03 16:55 | ER Document Report ---
ED General - General Chief Complaint: S/S of Possible Stroke Stated Complaint: POSSIBLE STROKE Time Seen by Provider: 11/03/17 16:34 Notes: Patient was just discharged from this hospital earlier today after a 5 day stay for severe hypertension, diabetes, and several other diagnoses. Family says that when she got home that she was unsteady on her feet, not acting right, and "blacking out". They said that she was making groaning sounds, but not carrying on conversation. She was not witnessed to have any seizure activity. Patient denies any chest pain or shortness of breath or difficulty breathing or fevers. She does say that her back hurts where she fell last landing on her back. TRAVEL OUTSIDE OF THE [place] IN LAST 30 DAYS: No - Related Data Allergies/Adverse Reactions: No Known Allergies Allergy (Verified 11/03/17 16:05) Past Medical History - Social History Smoking Status: Unknown if Ever Smoked Family History: Reviewed & Not Pertinent, CAD, DM, Hypertension - Past Medical History Cardiac Medical History: Reports: Hx Hypertension - white coat syndrome Denies: Hx Heart Attack Pulmonary Medical History: Denies: Hx Asthma Neurological Medical History: Denies: Hx Cerebrovascular Accident, Hx Seizures Endocrine Medical History: Reports: Hx Diabetes Mellitus Type 2 Review of Systems - Review of Systems Notes: REVIEW OF SYSTEMS: CONSTITUTIONAL : Denies fever. EENT: Denies eye, ear, nose or mouth or throat pain or other symptoms. CARDIOVASCULAR: Denies chest pain. RESPIRATORY: Denies cough, chest congestion, or shortness of breath. GASTROINTESTINAL: Denies abdominal pain or nausea, vomiting, or diarrhea. GENITOURINARY: Denies difficulty or painful urinating, urinary frequency, blood in urine. MUSCULOSKELETAL: Only complains of back, not any neck pain. Denies joint pain or swelling. SKIN: Denies rash or skin lesions. NEUROLOGICAL: Denies LOC or altered mental status. Denies headache. Denies sensory loss or motor deficits. ALL OTHER SYSTEMS REVIEWED AND NEGATIVE. Physical Exam - Vital signs Vitals: Resp 17 11/03/17 16:09 Interpretation: Normal, Other - Blood pressure somewhat on the low side at 108/ 66. - Notes Notes: PHYSICAL EXAMINATION: GENERAL: Well-appearing, in no acute distress. Sitting comfortably on the stretcher. With assistance, the patient can stand up and with minimal assistance she can walk to a cabinet and back to her stretcher without any difficulty. Moves all 4 extremities normally. HEAD: Atraumatic, normocephalic. EYES: Pupils equal round and reactive to light, extraocular movements intact. ENT: oropharynx clear without exudates. Moist mucous membranes. NECK: Normal range of motion, supple. No carotid bruits heard. LUNGS: Breath sounds clear and equal bilaterally. HEART: Regular rate and rhythm without murmurs. ABDOMEN: Soft, nontender. No guarding or rebound. No masses. BACK: No tenderness throughout entire back. Says her back hurts in the region of the lower thoracic vertebrae. Not really tender to palpate there. EXTREMITIES: Normal range of motion without pain. NEUROLOGICAL: Normal speech, slightly unsteady gait. Normal sensory, motor, and reflex exams. Awake, alert, and oriented to place. PSYCH: Normal mood, normal affect. SKIN: Warm, dry, no rashes. Course - Re-evaluation Re-evalutation: 11/03/17 17:00 Called and spoke with Dr. French, who took care of patient while in the hospital and discharge her today. She is going to come see the patient and consider readmission. She does appear to be hyponatremic which would justify readmission for some IV saline. This lab result also could account for some of the patient's mental status problems. - Vital Signs Vital signs: Temp Pulse Resp BP Pulse Ox 90 12 134/85 H 98 11/03/17 16:39 11/03/17 16:39 11/03/17 16:39 11/03/17 16:39 - Laboratory Result Diagrams: 11/03/17 16:11 11/03/17 16:11 Laboratory results interpreted by me: 11/03/17 16:11 Sodium 122.6 L Chloride 83 L BUN 35 H Creatinine 1.51 H Est GFR ( Amer) 41 L Est GFR (Non-Af Amer) 34 L Glucose 184 H - Diagnostic Test Radiology reviewed: Image reviewed, Reports reviewed - CT scan of the brain is normal. - EKG Interpretation by Me EKG shows normal: Sinus rhythm Rate: Normal Rhythm: NSR Voltage: Consistant with LVH Discharge - Discharge Clinical Impression: Altered mental status, Hyponatremia Condition: Stable Disposition: ADMITTED OBSERVATION Admitting Provider: Hospitalist Unit Admitted: Telemetry Referrals: MORENA WAYNE MD [Primary Care Provider] - Follow up as needed
[2017-11-03] MEDS ORDERED: NORMAL SALINE 1000 ML 1,000 ML IV PRN (17:22)
[2017-11-03] MEDS ORDERED: DEXTROSE 40% GEL 15 GM TUBE PO PRN ×2 (17:34)
[2017-11-03] MEDS ORDERED: GLUCAGON,HUMAN RECOMB 1 MG INJ IM PRN (17:34)
[2017-11-03] MEDS ORDERED: DEXTROSE 50%-WATER 25 GM/50 ML DISP.SYRIN IV PRN ×2 (17:34)
--- NOTE | 2017-11-03 17:36 | PDOC H&P ---
History of Present Illness Admission Date/PCP: 11/03/17 17:27 MORENA WAYNE MD History of Present Illness: VIVI WATTS is a 72 year old female who was discharged earlier today after 5 days of hospitalization for uncontrolled hypertension and hyperglycemia while at home patient became extremely unstable , not able to ambulate to the bathroom and sustained a fall Mentation was altered, she was brought back to the ED for evaluation Upon evaluation in the ER she was more appropriate, answering questions appropriately... BMP was drawn and incidentally sodium was down at 122 with increased BUN/ creatinine suggestive of dehydration A CAT scan of the brain was unremarkable Patient was readmitted for hyponatremia, dehydration and TIA-like episode Normal saline was initiated in the ED Past Medical History Cardiac Medical History: Reports: Hypertension - white coat syndrome Denies: Myocardial Infarction Pulmonary Medical History: Denies: Asthma Neurological Medical History: Denies: Seizures Endocrine Medical History: Reports: Diabetes Mellitus Type 2 Hematology: Denies: Anemia, Sickle Cell Disease Past Surgical History Past Surgical History: Denies: Amputation Social History Information Source: Patient Smoking Status: Unknown if Ever Smoked Frequency of Alcohol Use: None Hx Recreational Drug Use: No Drugs: None Hx Prescription Drug Abuse: No - Advance Directive Resuscitation Status: Full Code Family History Family History: CAD, DM, Hypertension Parental Family History Reviewed: Yes Children Family History Reviewed: Yes Sibling(s) Family History Reviewed.: Yes Medication/Allergy Allergies/Adverse Reactions: No Known Allergies Allergy (Verified 11/03/17 16:05) Review of Systems Constitutional: PRESENT: fatigue, weakness. ABSENT: chills, fever(s) Respiratory: ABSENT: cough, dyspnea, sputum Gastrointestinal: PRESENT: nausea. ABSENT: abdominal pain, dysphagia, vomiting Musculoskeletal: PRESENT: back pain, muscle weakness Integumentary: ABSENT: erythema, pruritus Neurological: PRESENT: frequent falls, lack of coordination, weakness. ABSENT: abnormal gait, focal weakness Psychiatric: PRESENT: other - Patient is withdrawn at times not willing to communicate Endocrine: ABSENT: cold intolerance Hematologic/Lymphatic: ABSENT: easy bleeding, easy bruising Physical Exam Vital Signs: Temp Pulse Resp BP Pulse Ox 90 12 134/85 H 98 11/03/17 16:39 11/03/17 16:39 11/03/17 16:39 11/03/17 16:39 General appearance: PRESENT: no acute distress, well-developed, well-nourished Head exam: PRESENT: atraumatic, normocephalic Eye exam: PRESENT: conjunctiva pink, EOMI, PERRLA. ABSENT: scleral icterus Neck exam: ABSENT: carotid bruit, JVD, lymphadenopathy, thyromegaly Respiratory exam: PRESENT: clear to auscultation nena, symmetrical. ABSENT: accessory muscle use, rhonchi, wheezes Cardiovascular exam: PRESENT: RRR. ABSENT: gallop, systolic murmur Pulses: PRESENT: normal dorsalis pedis pul GI/Abdominal exam: PRESENT: normal bowel sounds. ABSENT: mass, organolmegaly, tenderness Rectal exam: PRESENT: deferred Extremities exam: PRESENT: full ROM. ABSENT: calf tenderness, joint swelling, pedal edema Musculoskeletal exam: PRESENT: full ROM, normal inspection Neurological exam: PRESENT: alert, awake, CN II-XII grossly intact Skin exam: PRESENT: dry, intact, warm. ABSENT: cyanosis, rash Results Impressions: Chest X-Ray 11/03/17 16:01 IMPRESSION: NO ACUTE RADIOGRAPHIC FINDING IN THE CHEST. Head CT 11/03/17 16:01 IMPRESSION: NORMAL BRAIN CT WITHOUT CONTRAST. EVIDENCE OF ACUTE STROKE: NO. Assessment & Plan - Diagnosis (1) Dehydration Is this a current diagnosis for this admission?: Yes Plan: Likely secondary to hydrochlorothiazide We will discontinue Start hydrating the patient On 11/01 the patient had normal labs (2) Acute renal failure Is this a current diagnosis for this admission?: Yes Plan: Discontinue lisinopril hydrate Follow-up BMP in a.m. (3) TIA (transient ischemic attack) Is this a current diagnosis for this admission?: Yes Plan: Patient was confused She had been withdrawn in the hospital with inappropriate behavior We will obtain an MRI of the brain and carotid ultrasound (4) Encephalopathy Is this a current diagnosis for this admission?: Yes Plan: Encephalopathy likely secondary to hyponatremia (5) Essential hypertension Is this a current diagnosis for this admission?: Yes (6) Hyponatremia Is this a current diagnosis for this admission?: Yes Plan: See above hydrate repeat BMP in a.m. (7) Diabetes mellitus Qualifiers: Diabetes mellitus type: type 2 Diabetes mellitus long-term insulin use: without long-term use Is this a current diagnosis for this admission?: Yes Plan: Hold metformin and Januvia Accu-Chek before meals at bedtime, lispro coverage - Time Time Spent with patient: We will admit the patient to IMCU with telemetry Time Spent: 50 to 70 Minutes - Inpatient Certification Based on my medical assessment, after consideration of the patient's comorbidities, presenting symptoms, or acuity I expect that the services needed warrant INPATIENT care.: Yes Medical Necessity: Need For IV Fluids, Need For Continuous Telemetry Monitoring
[2017-11-03] MEDS ORDERED: CARVEDILOL 12.5 MG TABLET PO SCH (22:00)
[2017-11-03] MEDS ORDERED: FAMOTIDINE 20 MG TABLET PO SCH (22:00)
--- NOTE | 2017-11-03 23:21 | EKG REPORT ---
SEVERITY:- BORDERLINE ECG - SINUS RHYTHM PROBABLE LEFT ATRIAL ABNORMALITY : Confirmed by: Merna Jackson 03-Nov-2017 23:20:06
[2017-11-03] MEDS: FAMOTIDINE 20 MG TABLET PO SCH (23:43)
[2017-11-04 05:39] LABS: HEMATOCRIT 31.2 % (36.0-47.0); HEMOGLOBIN 10.7 g/dL (12.0-15.5); MEAN CORPUSCULAR HEMOGLOBIN 32.3 pg (27.0-33.4); MEAN CORPUSCULAR HGB CONC 34.3 g/dL (32.0-36.0); MEAN CORPUSCULAR VOLUME 94 fl (80-97); PLATELET COUNT 232 10^3/uL (150-450); RED BLOOD COUNT 3.32 10^6/uL (3.72-5.28); RED CELL DISTRIBUTION WIDTH 13.7 % (11.5-14.0); WHITE BLOOD COUNT 3.6 10^3/uL (4.0-10.5)
[2017-11-04 06:02] LABS: ANION GAP 10 (5-19); BLOOD UREA NITROGEN 39 mg/dL (7-20); CALCIUM 8.4 mg/dL (8.4-10.2); CARBON DIOXIDE 25 mmol/L (22-30); CHLORIDE 91 mmol/L (98-107); GLUCOSE 139 mg/dL (75-110); POTASSIUM 3.7 mmol/L (3.6-5.0); SODIUM 125.9 mmol/L (137-145)
[2017-11-04] MEDS ORDERED: CARVEDILOL 12.5 MG TABLET PO SCH (07:17)
[2017-11-04] MEDS ORDERED: NORMAL SALINE 1000 ML 1,000 ML IV PRN (07:21)
--- NOTE | 2017-11-04 08:23 | RADIOLOGY REPORT (SQ) ---
EXAM DESCRIPTION: MRI HEAD WITHOUT COMPLETED DATE/TIME: 11/03/2017 10:48 pm REASON FOR STUDY: TIA altered mentation I10 ESSENTIAL (PRIMARY) HYPERTENSION COMPARISON: None. TECHNIQUE: Multiplanar imaging includes non-contrasted T1, T2, FLAIR, and diffusion with ADC map seq uences. Images stored on PACS. LIMITATIONS: None. FINDINGS: ANATOMY: No developmental anomalies. Normal vascular flow voids. Pituitary fossa normal. CSF SPACES: Normal in size and contour. No hemorrhage. CEREBRUM: Sulci and gyri normal in size and contour. Age-appropriate mild to moderate increased bifr ontal and biparietal deep white matter signal on FLAIR imaging from chronic small vessel disease. No evidence of hemorrhage, mass, or extraaxial fluid collection. POSTERIOR FOSSA: No signal alteration. No hemorrhage. No edema, masses or mass effect. Internal eric tory canals, cerebello-pontine angles, mastoids normal. DIFFUSION IMAGING: Negative for acute or sub-acute infarction. ORBITS: No masses. Globes post cataract surgery. PARANASAL SINUSES: No fluid levels. Mucosa normal. OTHER: No other significant finding. IMPRESSION: MILD TO MODERATE INCREASED DEEP HEMISPHERIC WHITE MATTER DISEASE. OTHERWISE, UNREMARKABLE MRI OF THE BRAIN WITHOUT INTRAVENOUS GADOLINIUM CONTRAST. EVIDENCE OF ACUTE STROKE: NO. TECHNICAL DOCUMENTATION: JOB ID: [id number] [employer]- All Rights Reserved Reading location - IP/workstation name: [email or web address]-ON LICENSE OF [facility]-[email or web address]
--- NOTE | 2017-11-04 09:01 | EKG REPORT ---
SEVERITY:- ABNORMAL ECG - SINUS RHYTHM LEFT ATRIAL ABNORMALITY ABNRM R PROG, CONSIDER ASMI OR LEAD PLACEMENT : Confirmed by: Merna Jackson 04-Nov-2017 09:00:27
--- NOTE | 2017-11-04 09:56 | PDOC PROGRESS REPORT ---
Subjective Progress Note for:: 11/04/17 Subjective:: Patient still appears withdrawn she is awake She is hemodynamically stable oxygenating well on room air She did pass a swallow evaluation in the mentation has been appropriate most of the time At times patient just does not wish to participate and does not knowledge staff She is in no respiratory distress no fever no chills no pains Reason For Visit: HYPONATREMIA/DEHYDRATION Patient was readmitted yesterday after being discharged because of extreme weakness at home Inability to walk and hyponatremia She was readmitted for hydration, PT evaluation and exclusion of an acute CVA An MRI of the head was performed this morning Patient passed a swallow evaluation Physical Exam Vital Signs: Temp Pulse Resp BP Pulse Ox 97.4 F 77 14 104/52 L 99 11/04/17 07:12 11/04/17 07:12 11/04/17 07:12 11/04/17 07:12 11/04/17 07:12 Intake & Output 11/03/17 11/04/17 11/05/17 00:59 00:59 00:59 Intake Total 100 900 Output Total 0 Balance 100 900 Weight 58.1 kg 60.3 kg General appearance: PRESENT: no acute distress, well-developed, well-nourished Head exam: PRESENT: atraumatic, normocephalic Eye exam: PRESENT: conjunctiva pink, EOMI, PERRLA. ABSENT: scleral icterus Neck exam: ABSENT: carotid bruit, JVD, lymphadenopathy, thyromegaly Respiratory exam: PRESENT: clear to auscultation nena. ABSENT: rales, rhonchi, wheezes Cardiovascular exam: PRESENT: RRR. ABSENT: diastolic murmur, rubs, systolic murmur Pulses: PRESENT: normal dorsalis pedis pul GI/Abdominal exam: PRESENT: normal bowel sounds, soft. ABSENT: distended, guarding, mass, organolmegaly, rebound, tenderness Extremities exam: PRESENT: full ROM. ABSENT: calf tenderness, clubbing, pedal edema Neurological exam: PRESENT: alert, awake, oriented to person, oriented to place , oriented to time, oriented to situation, CN II-XII grossly intact. ABSENT: motor sensory deficit Psychiatric exam: PRESENT: depressed, other - withdrawn Skin exam: PRESENT: dry, intact, warm. ABSENT: cyanosis, rash Results Laboratory Results: 11/04/17 05:25 11/04/17 05:25 11/04/17 11/04/17 11/04/17 05:25 05:25 05:25 WBC 3.6 L RBC 3.32 L Hgb 10.7 L Hct 31.2 L MCV 94 MCH 32.3 MCHC 34.3 RDW 13.7 Plt Count 232 Sodium 125.9 L Potassium 3.7 Chloride 91 L Carbon Dioxide 25 Anion Gap 10 BUN 39 H Creatinine 1.32 H Est GFR ( Amer) 48 L Est GFR (Non-Af Amer) 40 L Glucose 139 H Calcium 8.4 TSH 0.64 11/03/17 11/04/17 11/04/17 18:02 00:17 05:25 Troponin I < 0.012 < 0.012 < 0.012 Impressions: Chest X-Ray 11/03/17 16:01 IMPRESSION: NO ACUTE RADIOGRAPHIC FINDING IN THE CHEST. Head CT 11/03/17 16:01 IMPRESSION: NORMAL BRAIN CT WITHOUT CONTRAST. EVIDENCE OF ACUTE STROKE: NO. Head MRI 11/03/17 17:22 IMPRESSION: MILD TO MODERATE INCREASED DEEP HEMISPHERIC WHITE MATTER DISEASE. OTHERWISE, UNREMARKABLE MRI OF THE BRAIN WITHOUT INTRAVENOUS GADOLINIUM CONTRAST. EVIDENCE OF ACUTE STROKE: NO. Assessment & Plan - Diagnosis (1) Dehydration Is this a current diagnosis for this admission?: Yes (2) Acute renal failure Is this a current diagnosis for this admission?: Yes Plan: Secondary to dehydration Hold lisinopril and hydrochlorothiazide (3) TIA (transient ischemic attack) Is this a current diagnosis for this admission?: Yes Plan: MRI of the brain was unremarkable No evidence of stroke We will discontinue mend exams (4) Encephalopathy Is this a current diagnosis for this admission?: Yes Plan: Likely secondary to hyponatremia (5) Essential hypertension Is this a current diagnosis for this admission?: Yes Plan: Blood pressure is running low Decrease Coreg Continue hydration (6) Hyponatremia Is this a current diagnosis for this admission?: Yes (7) Diabetes mellitus Qualifiers: Diabetes mellitus type: type 2 Diabetes mellitus terminal superintendent insulin use: without terminal superintendent use Is this a current diagnosis for this admission?: Yes - Time Time Spent with patient: Patient to be evaluated by physical therapy ; she may be a good candidate for short-term rehab Time Spent with patient: 25-34 minutes
[2017-11-04] MEDS: ENOXAPARIN SODIUM INJ 30 MG/0.3 ML DISP.SYRIN SUBCUT SCH (10:30)
[2017-11-04] MEDS: ASPIRIN 81 MG TABLET, ENT COATED PO SCH (10:31)
[2017-11-04] MEDS: CARVEDILOL 12.5 MG TABLET PO SCH ×2 (10:31→20:52)
[2017-11-04] MEDS: ATORVASTATIN CALCIUM 10 MG TABLET PO SCH (10:31)
[2017-11-04] MEDS: MULTIVITAMIN TABLET PO SCH (10:32)
--- NOTE | 2017-11-04 14:35 | RADIOLOGY REPORT (SQ) ---
EXAM DESCRIPTION: CAROTID DOPPLER COMPLETED DATE/TIME: 11/04/2017 1:24 pm REASON FOR STUDY: TIA like episode I10 ESSENTIAL (PRIMARY) HYPERTENSION COMPARISON: None. TECHNIQUE: Grayscale ultrasound, Doppler velocity and spectra, and color Doppler images acquired of the extra-cranial carotid and vertebral arteries. Images stored on PACS. LIMITATIONS: None. FINDINGS: RIGHT CAROTID CCA Velocities: Within normal limits. ICA Velocities Peak systolic 71 cm/s. End diastolic 14 cm/s. Proximal ICA/CCA peak systolic ratio 1.2. There is a small amount of plaque in the internal carotid. There is plaque that is fairly extensive in the external carotid. LEFT CAROTID CCA Velocities: Within normal limits. ICA Velocities Peak systolic 72 cm/s. End diastolic 8 cm/s. Proximal ICA/CCA peak systolic ratio 1. There is plaque in the common and internal carotid and a large amount of plaque in the external carot id. VERTEBRAL ARTERIES: Antegrade flow. Normal waveforms. SUBCLAVIAN ARTERIES: No finding. OTHER: No other significant finding. IMPRESSION: Atherosclerotic changes with no hemodynamically significant lesion. COMMENT: Quality ID #[id number]: Velocity criteria are extrapolated from the diameter data as defined by t he Society of Radiologists in Ultrasound Consensus Conference. Radiology 2003: 229; 340-346. TECHNICAL DOCUMENTATION: JOB ID: [id number] [employer]- All Rights Reserved Reading location - IP/workstation name: [email or web address]
--- NOTE | 2017-11-04 15:40 | PSYCHOLOGICAL NOTE ---
Psych Note - Psych Note Psych Note: Reason for Consult: Withdrawn and depressed VIVI WATTS is a 72 year old female who was discharged earlier today after 5 days of hospitalization for uncontrolled hypertension and hyperglycemia. While at home patient became extremely unstable, not able to ambulate to the bathroom and sustained a fall. Mentation was altered, she was brought back to the ED for evaluation. Upon evaluation in the ER she was more appropriate, answering questions appropriately... Patient disclosed she arrived to [facility] via EMS states she came to the hospital because of her "blood pressure and blood sugar." Patient denies thoughts of self-harm or wanting to kill herself. Patient denies history of mental health treatment. Patient was able to identify she takes medications for her blood pressure, her diabetes, and "one other but I cannot remember the name." Patient was able to correctly identify the year and birthdate correctly identifying 1945 as 1945. Patient identifies irritation at having to answer many questions and stated "why don't you just ask me where I am at," at which she was able to properly respond that she is currently at "[facility]." Patient is alert and orientated to person, place, time and circumstance. Mood is irritable with congruent affect. Patient denies suicidal homicidal ideation. Delusions are absent behaviors congruent with intact reality based presentation i.e. organized and linear thought process. Eye contact was well- maintained. Conversational speech was within normal rate, tone and prosody. Intellectual abilities appear to be within the average range. Attention and concentration were good. Insight, judgment, impulse control is fair. Head MRI 11/03/17 17:22 IMPRESSION: MILD TO MODERATE INCREASED DEEP HEMISPHERIC WHITE MATTER DISEASE. OTHERWISE, UNREMARKABLE MRI OF THE BRAIN WITHOUT INTRAVENOUS GADOLINIUM CONTRAST. EVIDENCE OF ACUTE STROKE: NO. Medication recommendations per [facility]'s contracted psychiatrist Dr. Annemarie MD are as follows: 1. Depakote 250mg twice daily for mood stabilization/depression 2. BuSpar 5 mg twice daily for anxiety and agitation Diagnosis 311 (F32.9) unspecified depressive disorder V62.89 (Z60.0) phase of life problem r/o 799.59 (R41.9) unspecified neurocognitive disorder Impression\\plan: Patient is cleared from acute psychiatric services. Patient does not meet IVC criteria per [place] GS 122C. Patient appears to be having difficulty with life stage changes and does not want to live alone or with family. Discharge planning is involved. Medication recommendations have been provided. Dr. Castillo was consulted on the care and management of this patient.
[2017-11-04] MEDS: INSULIN LISPRO 100 UNIT/ML 3 ML VIAL SUBCUT PRN ×2 (17:08→23:44)
[2017-11-04] MEDS: FAMOTIDINE 20 MG TABLET PO SCH (20:52)
[2017-11-05 05:32] LABS: ANION GAP 8 (5-19); BLOOD UREA NITROGEN 33 mg/dL (7-20); CALCIUM 8.6 mg/dL (8.4-10.2); CARBON DIOXIDE 26 mmol/L (22-30); CHLORIDE 100 mmol/L (98-107); GLUCOSE 78 mg/dL (75-110); POTASSIUM 3.8 mmol/L (3.6-5.0); SODIUM 134.1 mmol/L (137-145)
[2017-11-05] MEDS ORDERED: NORMAL SALINE 1000 ML 1,000 ML IV PRN ×2 (09:34)
--- NOTE | 2017-11-05 09:39 | PDOC PROGRESS REPORT ---
Subjective Progress Note for:: 11/05/17 Subjective:: Patient is alert and awake she appears extremely comfortable She declined physical therapy yesterday , did not feel cooperative She has no chest pain or shortness of breath Workup for stroke was negative with a normal MRI, unremarkable carotid ultrasound Sodium is coming up to 134 Reason For Visit: TIA,HYPONATREMIA,DEHYDRATION Physical Exam Vital Signs: Temp Pulse Resp BP Pulse Ox 98.5 F 104 H 18 120/74 99 11/05/17 04:51 11/05/17 07:00 11/05/17 04:51 11/05/17 04:51 11/05/17 04:51 Intake & Output 11/04/17 11/05/17 11/06/17 00:59 00:59 00:59 Intake Total 1305 1200 Balance 1305 1200 Weight 63.1 kg General appearance: PRESENT: no acute distress, well-developed, well-nourished Eye exam: PRESENT: conjunctiva pink, EOMI, PERRLA. ABSENT: scleral icterus Neck exam: ABSENT: carotid bruit, JVD, lymphadenopathy, thyromegaly Respiratory exam: PRESENT: clear to auscultation nena. ABSENT: rales, rhonchi, wheezes Pulses: PRESENT: normal dorsalis pedis pul GI/Abdominal exam: PRESENT: normal bowel sounds, soft. ABSENT: distended, guarding, mass, organolmegaly, rebound, tenderness Neurological exam: PRESENT: alert, awake, CN II-XII grossly intact Psychiatric exam: PRESENT: appropriate affect Results Laboratory Results: 11/05/17 04:11 11/05/17 04:11 Sodium 134.1 L Potassium 3.8 Chloride 100 Carbon Dioxide 26 Anion Gap 8 BUN 33 H Creatinine 1.02 Est GFR ( Amer) > 60 Est GFR (Non-Af Amer) 53 L Glucose 78 Calcium 8.6 Impressions: Chest X-Ray 11/03/17 16:01 IMPRESSION: NO ACUTE RADIOGRAPHIC FINDING IN THE CHEST. Head CT 11/03/17 16:01 IMPRESSION: NORMAL BRAIN CT WITHOUT CONTRAST. EVIDENCE OF ACUTE STROKE: NO. Head MRI 11/03/17 17:22 IMPRESSION: MILD TO MODERATE INCREASED DEEP HEMISPHERIC WHITE MATTER DISEASE. OTHERWISE, UNREMARKABLE MRI OF THE BRAIN WITHOUT INTRAVENOUS GADOLINIUM CONTRAST. EVIDENCE OF ACUTE STROKE: NO. Carotid Doppler Study 11/04/17 17:22 IMPRESSION: Atherosclerotic changes with no hemodynamically significant lesion. Assessment & Plan - Diagnosis (1) Dehydration Is this a current diagnosis for this admission?: Yes Plan: Improved Continue present hydration another 24 hours (2) Acute renal failure Is this a current diagnosis for this admission?: Yes Plan: Resolved ; renal function is back to normal (3) TIA (transient ischemic attack) Is this a current diagnosis for this admission?: Yes Plan: No evidence of TIA patient likely Had hypotension secondary to dehydration (4) Encephalopathy Is this a current diagnosis for this admission?: Yes Plan: Secondary to hyponatremia improved Patient was also may have some emotional psych issues She was seen by psychiatry will order [place] and [place] as advised (5) Essential hypertension Is this a current diagnosis for this admission?: Yes (6) Hyponatremia Is this a current diagnosis for this admission?: Yes Plan: Resolving with hydration ; we will discontinue hydrochlorothiazide at discharge (7) Diabetes mellitus Qualifiers: Diabetes mellitus type: type 2 Diabetes mellitus group home insulin use: without superintendent container terminal use Is this a current diagnosis for this admission?: Yes - Time Time Spent with patient: Encourage patient to have physical therapy evaluation Patient should be discharged with home PT She will not agree to go to inpatient rehab Within: within 48 hours
[2017-11-05] MEDS: MULTIVITAMIN TABLET PO SCH (10:08)
[2017-11-05] MEDS: ATORVASTATIN CALCIUM 10 MG TABLET PO SCH (10:08)
[2017-11-05] MEDS: ASPIRIN 81 MG TABLET, ENT COATED PO SCH (10:08)
[2017-11-05] MEDS: CARVEDILOL 12.5 MG TABLET PO SCH ×2 (10:08→21:43)
[2017-11-05] MEDS: ENOXAPARIN SODIUM INJ 30 MG/0.3 ML DISP.SYRIN SUBCUT SCH (10:09)
[2017-11-05] MEDS: INSULIN LISPRO 100 UNIT/ML 3 ML VIAL SUBCUT PRN ×2 (16:28→21:44)
[2017-11-05] MEDS: ACETAMINOPHEN 325 MG TABLET PO PRN (18:38)
[2017-11-05] MEDS: FAMOTIDINE 20 MG TABLET PO SCH (21:43)
[2017-11-06 08:53] LABS: ANION GAP 9 (5-19); BLOOD UREA NITROGEN 21 mg/dL (7-20); CARBON DIOXIDE 24 mmol/L (22-30); CHLORIDE 105 mmol/L (98-107); GLUCOSE 153 mg/dL (75-110); SODIUM 137.7 mmol/L (137-145)
[2017-11-06] MEDS: ASPIRIN 81 MG TABLET, ENT COATED PO SCH (10:51)
[2017-11-06] MEDS: ENOXAPARIN SODIUM INJ 30 MG/0.3 ML DISP.SYRIN SUBCUT SCH (10:51)
[2017-11-06] MEDS: CARVEDILOL 12.5 MG TABLET PO SCH ×2 (10:51→21:23)
[2017-11-06] MEDS: MULTIVITAMIN TABLET PO SCH (10:52)
[2017-11-06] MEDS: ATORVASTATIN CALCIUM 10 MG TABLET PO SCH (10:52)
--- NOTE | 2017-11-06 17:20 | PDOC PROGRESS REPORT ---
Subjective Progress Note for:: 11/06/17 Subjective:: patient is in good spirits mentation improved family at bedside patient agrees to go to short term rehab Reason For Visit: TIA,HYPONATREMIA,DEHYDRATION Physical Exam Vital Signs: Temp Pulse Resp BP Pulse Ox 98.9 F 89 16 137/72 H 98 11/06/17 12:57 11/06/17 12:57 11/06/17 12:57 11/06/17 12:57 11/06/17 12:57 Intake & Output 11/05/17 11/06/17 11/07/17 00:59 00:59 00:59 Intake Total 1305 1820 1135 Balance 1305 1820 1135 Weight 63.1 kg 64.5 kg General appearance: PRESENT: no acute distress, well-developed, well-nourished Eye exam: PRESENT: conjunctiva pink, EOMI, PERRLA. ABSENT: scleral icterus Neck exam: ABSENT: carotid bruit, JVD, lymphadenopathy, thyromegaly Respiratory exam: PRESENT: clear to auscultation nena. ABSENT: rales, rhonchi, wheezes Pulses: PRESENT: normal dorsalis pedis pul GI/Abdominal exam: PRESENT: normal bowel sounds, soft. ABSENT: distended, guarding, mass, organolmegaly, rebound, tenderness Neurological exam: PRESENT: alert, awake, CN II-XII grossly intact Psychiatric exam: PRESENT: appropriate affect Results Laboratory Results: 11/06/17 08:18 11/06/17 08:18 Sodium 137.7 Potassium 4.0 Chloride 105 Carbon Dioxide 24 Anion Gap 9 BUN 21 H Creatinine 0.87 Est GFR ( Amer) > 60 Est GFR (Non-Af Amer) > 60 Glucose 153 H Calcium 9.0 Impressions: Chest X-Ray 11/03/17 16:01 IMPRESSION: NO ACUTE RADIOGRAPHIC FINDING IN THE CHEST. Head CT 11/03/17 16:01 IMPRESSION: NORMAL BRAIN CT WITHOUT CONTRAST. EVIDENCE OF ACUTE STROKE: NO. Head MRI 11/03/17 17:22 IMPRESSION: MILD TO MODERATE INCREASED DEEP HEMISPHERIC WHITE MATTER DISEASE. OTHERWISE, UNREMARKABLE MRI OF THE BRAIN WITHOUT INTRAVENOUS GADOLINIUM CONTRAST. EVIDENCE OF ACUTE STROKE: NO. Carotid Doppler Study 11/04/17 17:22 IMPRESSION: Atherosclerotic changes with no hemodynamically significant lesion. Assessment & Plan - Diagnosis (1) Dehydration Is this a current diagnosis for this admission?: Yes (2) Acute renal failure Is this a current diagnosis for this admission?: Yes Plan: resolved (3) TIA (transient ischemic attack) Is this a current diagnosis for this admission?: Yes Plan: was unlikely Patient had mental status changes secondary to dehydration and hyponatremia (4) Encephalopathy Is this a current diagnosis for this admission?: Yes Plan: resolved (5) Essential hypertension Is this a current diagnosis for this admission?: Yes (6) Hyponatremia Is this a current diagnosis for this admission?: Yes Plan: resolved with hydration (7) Diabetes mellitus Qualifiers: Diabetes mellitus type: type 2 Diabetes mellitus watermelon harvesting supervisor insulin use: without watermelon harvesting supervisor use Is this a current diagnosis for this admission?: Yes (8) Ambulatory dysfunction Is this a current diagnosis for this admission?: Yes Plan: patient is a candidate for short term rehab - Time Time Spent with patient: 25-34 minutes Medications reviewed and adjusted accordingly: Yes Anticipated discharge: SNF Within: within 48 hours - Inpatient Certification Based on my medical assessment, after consideration of the patient's comorbidities, presenting symptoms, or acuity I expect that the services needed warrant INPATIENT care.: Yes I certify that my determination is in accordance with my understanding of Medicare's requirements for reasonable and necessary INPATIENT services [42 CFR 412.3e].: Yes Medical Necessity: Need For IV Fluids, Risk of Complication if Not Cared For in Hospital - Plan Summary Plan Summary: to short term rehab on wednesday
[2017-11-06] MEDS: CARBOXYMETHYLCELLULOSE SOD 0.5% 0.4 ML DROPERETTE OU SCH (17:59)
[2017-11-06] MEDS: FAMOTIDINE 20 MG TABLET PO SCH (21:23)
[2017-11-06] MEDS: INSULIN LISPRO 100 UNIT/ML 3 ML VIAL SUBCUT PRN (21:23)
[2017-11-07] MEDS: INSULIN LISPRO 100 UNIT/ML 3 ML VIAL SUBCUT PRN ×2 (08:04→21:53)
[2017-11-07] MEDS: GLIPIZIDE 5 MG TABLET PO SCH ×2 (08:05→15:49)
[2017-11-07] MEDS: METFORMIN HCL 500 MG TABLET PO SCH ×2 (09:43→17:11)
[2017-11-07] MEDS: ATORVASTATIN CALCIUM 10 MG TABLET PO SCH (09:43)
[2017-11-07] MEDS: CARVEDILOL 12.5 MG TABLET PO SCH ×2 (09:43→21:53)
[2017-11-07] MEDS: ASPIRIN 81 MG TABLET, ENT COATED PO SCH (09:43)
[2017-11-07] MEDS: MULTIVITAMIN TABLET PO SCH (09:43)
[2017-11-07] MEDS: CARBOXYMETHYLCELLULOSE SOD 0.5% 0.4 ML DROPERETTE OU SCH ×2 (09:44→17:11)
[2017-11-07] MEDS: ENOXAPARIN SODIUM INJ 30 MG/0.3 ML DISP.SYRIN SUBCUT SCH (09:44)
--- NOTE | 2017-11-07 17:52 | PDOC DISCHARGE SUMMARY ---
General - Admit/Disc Date/PCP Admission Date/Primary Care Provider: 11/04/17 09:49 MORENA WAYNE MD Discharge Date: 11/08/17 - Discharge Diagnosis (1) Dehydration Is this a current diagnosis for this admission?: Yes Summary: 11/03/17 11/06/17 16:11 08:18 Sodium 122.6 L 137.7 Potassium 4.3 4.0 Chloride 83 L 105 Carbon Dioxide 28 24 BUN 35 H 21 H Creatinine 1.51 H 0.87 Patient was admitted with acute renal failure and hyponatremia likely secondary to dehydration Patient had been discharged on hydrochlorothiazide and had of poor intake During her hospital stay patient was rehydrated with normal saline Antihypertensive medications were reevaluated ; hydrochlorothiazide was discontinued Electrolytes are normal at discharge (2) Acute renal failure Is this a current diagnosis for this admission?: Yes (3) TIA (transient ischemic attack) Is this a current diagnosis for this admission?: Yes Summary: Patient had altered mental status on admission She had a negative workup for TIA including MRI of the brain and carotid ultrasound Patient likely had metabolic encephalopathy secondary to hyponatremia and dehydration mentation is normal appropriate at discharge (4) Encephalopathy Is this a current diagnosis for this admission?: Yes Summary: Resolved (5) Essential hypertension Is this a current diagnosis for this admission?: Yes Summary: Patient's medications were reevaluated (6) Hyponatremia Is this a current diagnosis for this admission?: Yes Summary: Resolved (7) Diabetes mellitus Is this a current diagnosis for this admission?: Yes Summary: Patient's blood sugars are in the 200 range She was treated with insulin lispro coverage We increased the metformin 2000 mg twice a day and prescribed glyburide 2.5 mg twice a day Patient should be reevaluated in a week or 2 (8) Ambulatory dysfunction Is this a current diagnosis for this admission?: Yes Summary: Patient was evaluated by physical therapy and she was thought to be a candidate for short-term rehab she will be reevaluated on WednesdayNovember 08 and disposition will depend on their assessment Patient agrees to go to rehab if needed - Additional Information Resuscitation Status: Full Code Prescriptions: Carvedilol [Coreg 12.5 mg Tablet] 12.5 mg PO Q12 30 Days #60 tablet Glipizide [Glucotrol 5 mg Tablet] 2.5 mg PO BIDACBS 30 Days #60 tablet Lisinopril 5 mg PO DAILY 30 Days #30 tablet Metformin HCl [Glucophage 500 mg Tablet] 1,000 mg PO BID 30 Days #60 tablet Home Medications: Atorvastatin Calcium [Lipitor 10 mg Tablet] 10 mg PO DAILY 11/04/17 Carvedilol [Coreg 12.5 mg Tablet] 12.5 mg PO Q12 30 Days #60 tablet 11/07/17 Glipizide [Glucotrol 5 mg Tablet] 2.5 mg PO BIDACBS 30 Days #60 tablet 11/07/17 Lisinopril 5 mg PO DAILY 30 Days #30 tablet 11/07/17 Metformin HCl [Glucophage 500 mg Tablet] 1,000 mg PO BID 30 Days #60 tablet 08/22 History of Present Illness Patient complains of: weakness altered mentation History of Present Illness: VIVI WATTS is a 72 year old female who was discharged earlier today after 5 days of hospitalization for uncontrolled hypertension and hyperglycemia while at home patient became extremely unstable , not able to ambulate to the bathroom and sustained a fall Mentation was altered, she was brought back to the ED for evaluation Upon evaluation in the ER she was more appropriate, answering questions appropriately... BMP was drawn and incidentally sodium was down at 122 with increased BUN/ creatinine suggestive of dehydration A CAT scan of the brain was unremarkable Patient was readmitted for hyponatremia, dehydration and TIA-like episode Normal saline was initiated in the ED Hospital Course Hospital Course: see above Physical Exam Vital Signs: Temp Pulse Resp BP Pulse Ox 99.0 F 96 18 128/76 H 100 11/07/17 15:51 11/07/17 15:51 11/07/17 15:51 11/07/17 15:51 11/07/17 15:51 Intake & Output 11/06/17 11/07/17 11/08/17 00:59 00:59 00:59 Intake Total 1820 1910 1350 Output Total 625 Balance 182 1910 725 Weight 63.1 kg 64.5 kg 63.7 kg General appearance: PRESENT: no acute distress, well-developed, well-nourished Eye exam: PRESENT: conjunctiva pink, EOMI, PERRLA. ABSENT: scleral icterus Neck exam: ABSENT: carotid bruit, JVD, lymphadenopathy, thyromegaly Respiratory exam: PRESENT: clear to auscultation nena. ABSENT: rales, rhonchi, wheezes Pulses: PRESENT: normal dorsalis pedis pul GI/Abdominal exam: PRESENT: normal bowel sounds, soft. ABSENT: distended, guarding, mass, organolmegaly, rebound, tenderness Neurological exam: PRESENT: alert, awake, CN II-XII grossly intact Psychiatric exam: PRESENT: appropriate affect Results Laboratory Results: 11/06/17 08:18 Impressions: Chest X-Ray 11/03/17 16:01 IMPRESSION: NO ACUTE RADIOGRAPHIC FINDING IN THE CHEST. Head CT 11/03/17 16:01 IMPRESSION: NORMAL BRAIN CT WITHOUT CONTRAST. EVIDENCE OF ACUTE STROKE: NO. Head MRI 11/03/17 17:22 IMPRESSION: MILD TO MODERATE INCREASED DEEP HEMISPHERIC WHITE MATTER DISEASE. OTHERWISE, UNREMARKABLE MRI OF THE BRAIN WITHOUT INTRAVENOUS GADOLINIUM CONTRAST. EVIDENCE OF ACUTE STROKE: NO. Carotid Doppler Study 11/04/17 17:22 IMPRESSION: Atherosclerotic changes with no hemodynamically significant lesion. Qualifiers - * PATIENT BEING DISCHARGED WITH ANY OF THE FOLLOWING DIAGNOSIS: No
[2017-11-07] MEDS: FAMOTIDINE 20 MG TABLET PO SCH (21:53)
[2017-11-08] MEDS: ENOXAPARIN SODIUM INJ 30 MG/0.3 ML DISP.SYRIN SUBCUT SCH (09:16)
[2017-11-08] MEDS: GLIPIZIDE 5 MG TABLET PO SCH ×2 (09:17→17:01)
[2017-11-08] MEDS: ASPIRIN 81 MG TABLET, ENT COATED PO SCH (09:17)
[2017-11-08] MEDS: CARVEDILOL 12.5 MG TABLET PO SCH ×2 (09:17→22:20)
[2017-11-08] MEDS: METFORMIN HCL 500 MG TABLET PO SCH ×2 (09:18→17:02)
[2017-11-08] MEDS: ATORVASTATIN CALCIUM 10 MG TABLET PO SCH (09:18)
[2017-11-08] MEDS: MULTIVITAMIN TABLET PO SCH (09:18)
[2017-11-08] MEDS: CARBOXYMETHYLCELLULOSE SOD 0.5% 0.4 ML DROPERETTE OU SCH ×2 (09:19→17:03)
--- NOTE | 2017-11-08 16:42 | PDOC PROGRESS REPORT ---
Subjective Progress Note for:: 11/08/17 Subjective:: I have seen the patient on 2 separate occasions today. She has refusing to go to subacute rehabilitation. Physical therapy reexamined the patient and feels like subacute rehabilitation would be best for her but does state that she could do okay in the home setting with home health services if she had lots of support. Currently her sister is out of town that she will be living with and will not be back until Wednesday. She would like to stay in the hospital until that time. Overall she states that she would like to work hard with physical therapy between now and then. Today she denies fever chills. No chest pain, shortness of breath or cough. No nausea, vomiting or diarrhea. No dysuria, frequency or hematuria Reason For Visit: TIA,HYPONATREMIA,DEHYDRATION Physical Exam Vital Signs: Temp Pulse Resp BP Pulse Ox 99.2 F 108 H 16 105/63 99 11/08/17 04:03 11/08/17 14:00 11/08/17 04:03 11/08/17 04:03 11/08/17 04:03 Intake & Output 11/07/17 11/08/17 11/09/17 06:59 06:59 06:59 Intake Total 1275 1950 Output Total 200 825 Balance 1075 1125 Weight 63.7 kg 61.1 kg General appearance: PRESENT: no acute distress, well-developed, well-nourished Head exam: PRESENT: atraumatic, normocephalic Ear exam: PRESENT: normal external ear exam Neck exam: ABSENT: carotid bruit, JVD, lymphadenopathy, thyromegaly Respiratory exam: PRESENT: clear to auscultation nena. ABSENT: rales, rhonchi, wheezes Cardiovascular exam: PRESENT: RRR. ABSENT: diastolic murmur, rubs, systolic murmur GI/Abdominal exam: PRESENT: normal bowel sounds, soft. ABSENT: distended, guarding, mass, organolmegaly, rebound, tenderness Rectal exam: PRESENT: deferred Extremities exam: PRESENT: full ROM. ABSENT: calf tenderness, clubbing, pedal edema Neurological exam: PRESENT: alert, awake, oriented to person, oriented to place , oriented to time, oriented to situation, CN II-XII grossly intact. ABSENT: motor sensory deficit Psychiatric exam: PRESENT: appropriate affect, normal mood. ABSENT: homicidal ideation, suicidal ideation Skin exam: PRESENT: dry, intact, warm. ABSENT: cyanosis, rash Results Laboratory Results: 11/06/17 08:18 Impressions: Chest X-Ray 11/03/17 16:01 IMPRESSION: NO ACUTE RADIOGRAPHIC FINDING IN THE CHEST. Head CT 11/03/17 16:01 IMPRESSION: NORMAL BRAIN CT WITHOUT CONTRAST. EVIDENCE OF ACUTE STROKE: NO. Head MRI 11/03/17 17:22 IMPRESSION: MILD TO MODERATE INCREASED DEEP HEMISPHERIC WHITE MATTER DISEASE. OTHERWISE, UNREMARKABLE MRI OF THE BRAIN WITHOUT INTRAVENOUS GADOLINIUM CONTRAST. EVIDENCE OF ACUTE STROKE: NO. Carotid Doppler Study 11/04/17 17:22 IMPRESSION: Atherosclerotic changes with no hemodynamically significant lesion. Assessment & Plan - Diagnosis (1) Acute renal failure Is this a current diagnosis for this admission?: Yes Plan: Secondary to dehydration. Resolved (2) Acute encephalopathy Is this a current diagnosis for this admission?: Yes Plan: Likely secondary to severe dehydration as well as severe hyponatremia and acute renal failure. Resolved (3) TIA (transient ischemic attack) Is this a current diagnosis for this admission?: Yes Plan: Continue aspirin and statin medication. (4) Hypertension Is this a current diagnosis for this admission?: Yes Plan: Stable (5) Diabetes mellitus Is this a current diagnosis for this admission?: Yes Plan: Stable (6) Hyponatremia Is this a current diagnosis for this admission?: Yes Plan: Much improved. (7) Anemia Is this a current diagnosis for this admission?: Yes Plan: Stable - Time Time Spent with patient: 25-34 minutes - Inpatient Certification Medical Necessity: Other - Inpatient hospitalization remains necessary for disposition. We need to set up home health services. Patient resides with her sister who will not be back until next Wednesday. Hopefully we can get her out of the hospital by that time.
[2017-11-08] MEDS: INSULIN LISPRO 100 UNIT/ML 3 ML VIAL SUBCUT PRN (17:05)
[2017-11-08] MEDS: FAMOTIDINE 20 MG TABLET PO SCH (22:20)
[2017-11-09] MEDS: GLIPIZIDE 5 MG TABLET PO SCH ×2 (08:36→16:36)
[2017-11-09] MEDS: ATORVASTATIN CALCIUM 10 MG TABLET PO SCH (10:33)
[2017-11-09] MEDS: CARVEDILOL 12.5 MG TABLET PO SCH ×2 (10:33→21:43)
[2017-11-09] MEDS: ASPIRIN 81 MG TABLET, ENT COATED PO SCH (10:33)
[2017-11-09] MEDS: ENOXAPARIN SODIUM INJ 30 MG/0.3 ML DISP.SYRIN SUBCUT SCH (10:33)
[2017-11-09] MEDS: MULTIVITAMIN TABLET PO SCH (10:34)
[2017-11-09] MEDS: CARBOXYMETHYLCELLULOSE SOD 0.5% 0.4 ML DROPERETTE OU SCH ×2 (10:34→17:41)
[2017-11-09] MEDS: METFORMIN HCL 500 MG TABLET PO SCH ×2 (10:34→17:42)
[2017-11-09] MEDS: INSULIN LISPRO 100 UNIT/ML 3 ML VIAL SUBCUT PRN ×2 (12:26→16:42)
--- NOTE | 2017-11-09 18:14 | PDOC PROGRESS REPORT ---
Subjective Progress Note for:: 11/09/17 Subjective:: The patient is resting in her bed. She has no complaints. She denies fever chills. No chest pain, shortness of breath or cough. No nausea vomiting or diarrhea. No urinary complaints. The patient's sister can pick her up from the hospital on 11/11/2017. I did discuss this with her and her other family member at the bedside. Reason For Visit: TIA,HYPONATREMIA,DEHYDRATION Physical Exam Vital Signs: Temp Pulse Resp BP Pulse Ox 98.9 F 99 16 140/66 H 98 11/09/17 15:27 11/09/17 15:27 11/09/17 15:27 11/09/17 15:27 11/09/17 15:27 Intake & Output 11/08/17 11/09/17 11/10/17 06:59 06:59 06:59 Intake Total 1950 768 325 Output Total 825 1525 Balance 1125 -757 325 Weight 61.1 kg 60.3 kg General appearance: PRESENT: no acute distress Head exam: PRESENT: atraumatic Respiratory exam: PRESENT: clear to auscultation nena. ABSENT: rales, rhonchi, wheezes Cardiovascular exam: PRESENT: RRR. ABSENT: diastolic murmur, rubs, systolic murmur GI/Abdominal exam: PRESENT: normal bowel sounds, soft. ABSENT: distended, guarding, mass, organolmegaly, rebound, tenderness Rectal exam: PRESENT: deferred Extremities exam: PRESENT: full ROM. ABSENT: calf tenderness, clubbing, pedal edema Neurological exam: PRESENT: alert, awake, oriented to person, oriented to place , oriented to time, oriented to situation, CN II-XII grossly intact. ABSENT: motor sensory deficit Psychiatric exam: PRESENT: appropriate affect, normal mood. ABSENT: homicidal ideation, suicidal ideation Skin exam: PRESENT: dry, intact, warm. ABSENT: cyanosis, rash Results Laboratory Results: 11/06/17 08:18 Impressions: Chest X-Ray 11/03/17 16:01 IMPRESSION: NO ACUTE RADIOGRAPHIC FINDING IN THE CHEST. Head CT 11/03/17 16:01 IMPRESSION: NORMAL BRAIN CT WITHOUT CONTRAST. EVIDENCE OF ACUTE STROKE: NO. Head MRI 11/03/17 17:22 IMPRESSION: MILD TO MODERATE INCREASED DEEP HEMISPHERIC WHITE MATTER DISEASE. OTHERWISE, UNREMARKABLE MRI OF THE BRAIN WITHOUT INTRAVENOUS GADOLINIUM CONTRAST. EVIDENCE OF ACUTE STROKE: NO. Carotid Doppler Study 11/04/17 17:22 IMPRESSION: Atherosclerotic changes with no hemodynamically significant lesion. Assessment & Plan - Diagnosis (1) Acute renal failure Is this a current diagnosis for this admission?: Yes Plan: Secondary to dehydration. Resolved (2) Acute encephalopathy Is this a current diagnosis for this admission?: Yes Plan: Likely secondary to severe dehydration as well as severe hyponatremia and acute renal failure. Resolved (3) TIA (transient ischemic attack) Is this a current diagnosis for this admission?: Yes Plan: Continue aspirin and statin medication. (4) Hypertension Is this a current diagnosis for this admission?: Yes Plan: Stable (5) Diabetes mellitus Is this a current diagnosis for this admission?: Yes (6) Hyponatremia Is this a current diagnosis for this admission?: Yes Plan: Much improved. (7) Anemia Is this a current diagnosis for this admission?: Yes - Time Time Spent with patient: 25-34 minutes - Inpatient Certification Medical Necessity: Other - The patient needs to remain in the hospital for disposition. She is going home with home health services but patient's sister will not be ready for her to come home until . She will be discharged at that time.
[2017-11-09] MEDS: ACETAMINOPHEN 325 MG TABLET PO PRN (18:32)
[2017-11-09] MEDS: FAMOTIDINE 20 MG TABLET PO SCH (21:43)
[2017-11-10] MEDS: GLIPIZIDE 5 MG TABLET PO SCH ×2 (08:20→16:44)
[2017-11-10] MEDS: ENOXAPARIN SODIUM INJ 30 MG/0.3 ML DISP.SYRIN SUBCUT SCH (09:19)
[2017-11-10] MEDS: ASPIRIN 81 MG TABLET, ENT COATED PO SCH (09:19)
[2017-11-10] MEDS: CARVEDILOL 12.5 MG TABLET PO SCH ×2 (09:20→21:30)
[2017-11-10] MEDS: METFORMIN HCL 500 MG TABLET PO SCH ×2 (09:20→17:20)
[2017-11-10] MEDS: MULTIVITAMIN TABLET PO SCH (09:20)
[2017-11-10] MEDS: ATORVASTATIN CALCIUM 10 MG TABLET PO SCH (09:20)
[2017-11-10] MEDS: CARBOXYMETHYLCELLULOSE SOD 0.5% 0.4 ML DROPERETTE OU SCH ×2 (12:48→17:20)
--- NOTE | 2017-11-10 13:07 | PDOC PROGRESS REPORT ---
Subjective Progress Note for:: 11/10/17 Subjective:: The patient is resting in her bed. She has no complaints today. Her sister is able to pick her up from the hospital tomorrow and we will plan to discharge her then. She denies fever chills. No chest pain, shortness of breath or cough. No nausea vomiting or diarrhea. No dysuria, frequency or hematuria Reason For Visit: TIA,HYPONATREMIA,DEHYDRATION Physical Exam Vital Signs: Temp Pulse Resp BP Pulse Ox 98.8 F 93 18 166/86 H 99 11/10/17 08:00 11/10/17 08:00 11/10/17 08:00 11/10/17 08:00 11/10/17 08:00 Intake & Output 11/09/17 11/10/17 11/11/17 06:59 06:59 06:59 Intake Total 768 835 Output Total 1525 1700 Balance -757 -865 Weight 60.3 kg 61 kg General appearance: PRESENT: no acute distress, well-developed, well-nourished Head exam: PRESENT: atraumatic, normocephalic Mouth exam: PRESENT: moist, tongue midline Respiratory exam: PRESENT: clear to auscultation nena. ABSENT: rales, rhonchi, wheezes Cardiovascular exam: PRESENT: RRR. ABSENT: diastolic murmur, rubs, systolic murmur GI/Abdominal exam: PRESENT: normal bowel sounds, soft. ABSENT: distended, guarding, mass, organolmegaly, rebound, tenderness Rectal exam: PRESENT: deferred Extremities exam: PRESENT: full ROM. ABSENT: calf tenderness, clubbing, pedal edema Neurological exam: PRESENT: alert, awake, oriented to person, oriented to place , oriented to time, oriented to situation, CN II-XII grossly intact. ABSENT: motor sensory deficit Psychiatric exam: PRESENT: appropriate affect, normal mood. ABSENT: homicidal ideation, suicidal ideation Skin exam: PRESENT: dry, intact, warm. ABSENT: cyanosis, rash Results Laboratory Results: 11/06/17 08:18 Impressions: Chest X-Ray 11/03/17 16:01 IMPRESSION: NO ACUTE RADIOGRAPHIC FINDING IN THE CHEST. Head CT 11/03/17 16:01 IMPRESSION: NORMAL BRAIN CT WITHOUT CONTRAST. EVIDENCE OF ACUTE STROKE: NO. Head MRI 11/03/17 17:22 IMPRESSION: MILD TO MODERATE INCREASED DEEP HEMISPHERIC WHITE MATTER DISEASE. OTHERWISE, UNREMARKABLE MRI OF THE BRAIN WITHOUT INTRAVENOUS GADOLINIUM CONTRAST. EVIDENCE OF ACUTE STROKE: NO. Carotid Doppler Study 11/04/17 17:22 IMPRESSION: Atherosclerotic changes with no hemodynamically significant lesion. Assessment & Plan - Diagnosis (1) Acute renal failure Is this a current diagnosis for this admission?: Yes Plan: Secondary to dehydration. Resolved (2) Acute encephalopathy Is this a current diagnosis for this admission?: Yes Plan: Likely secondary to severe dehydration as well as severe hyponatremia and acute renal failure. Resolved (3) TIA (transient ischemic attack) Is this a current diagnosis for this admission?: Yes Plan: Continue aspirin and statin medication. (4) Hypertension Is this a current diagnosis for this admission?: Yes Plan: Stable (5) Diabetes mellitus Is this a current diagnosis for this admission?: Yes Plan: Stable (6) Hyponatremia Is this a current diagnosis for this admission?: Yes Plan: Much improved. (7) Anemia Is this a current diagnosis for this admission?: Yes Plan: Stable - Time Time Spent with patient: 15-24 minutes - Inpatient Certification Medical Necessity: Other - Inpatient hospitalization remains necessary for disposition. I will get the discharge planners to set up home health services for the patient. She will be discharged tomorrow morning when her sister gets here.
[2017-11-10] MEDS: FAMOTIDINE 20 MG TABLET PO SCH (21:30)
[2017-11-11] MEDS: CARVEDILOL 12.5 MG TABLET PO SCH (09:44)
[2017-11-11] MEDS: METFORMIN HCL 500 MG TABLET PO SCH (09:45)
[2017-11-11] MEDS: ASPIRIN 81 MG TABLET, ENT COATED PO SCH (09:45)
[2017-11-11] MEDS: ATORVASTATIN CALCIUM 10 MG TABLET PO SCH (09:45)
[2017-11-11] MEDS: MULTIVITAMIN TABLET PO SCH (09:45)
[2017-11-11] MEDS: GLIPIZIDE 5 MG TABLET PO SCH (09:45)
[2017-11-11] MEDS: ENOXAPARIN SODIUM INJ 30 MG/0.3 ML DISP.SYRIN SUBCUT SCH (09:46)
[2017-11-11] MEDS: CARBOXYMETHYLCELLULOSE SOD 0.5% 0.4 ML DROPERETTE OU SCH (09:46)
--- NOTE | 2017-11-11 10:04 | PDOC DISCHARGE SUMMARY ---
General - Admit/Disc Date/PCP Admission Date/Primary Care Provider: 11/04/17 09:49 MORENA WAYNE MD Discharge Date: 11/11/17 - Discharge Diagnosis (1) Acute renal failure Is this a current diagnosis for this admission?: Yes (2) Acute encephalopathy Is this a current diagnosis for this admission?: Yes (3) TIA (transient ischemic attack) Is this a current diagnosis for this admission?: Yes (4) Hypertension Is this a current diagnosis for this admission?: Yes (5) Diabetes mellitus Is this a current diagnosis for this admission?: Yes (6) Hyponatremia Is this a current diagnosis for this admission?: Yes (7) Anemia Is this a current diagnosis for this admission?: Yes - Additional Information Resuscitation Status: Full Code Discharge Diet: Cardiac, Diabetic Discharge Activity: Activity As Tolerated Prescriptions: Aspirin [Ecotrin 81 mg EC Tablet] 81 mg PO DAILY 30 Days #30 tabec Atorvastatin Calcium [Lipitor 10 mg Tablet] 10 mg PO DAILY 30 Days #30 tablet Atorvastatin Calcium [Lipitor 10 mg Tablet] 10 mg PO DAILY #30 tablet Carvedilol [Coreg 12.5 mg Tablet] 12.5 mg PO Q12 30 Days #60 tablet Glipizide [Glucotrol 5 mg Tablet] 2.5 mg PO BIDACBS 30 Days #60 tablet Lisinopril 5 mg PO DAILY 30 Days #30 tablet Metformin HCl [Glucophage 500 mg Tablet] 1,000 mg PO BID 30 Days #60 tablet Home Medications: Aspirin [Ecotrin 81 mg EC Tablet] 81 mg PO DAILY 30 Days #30 tabec 11/07/17 Atorvastatin Calcium [Lipitor 10 mg Tablet] 10 mg PO DAILY 30 Days #30 tablet Carvedilol [Coreg 12.5 mg Tablet] 12.5 mg PO Q12 30 Days #60 tablet 11/07/17 Glipizide [Glucotrol 5 mg Tablet] 2.5 mg PO BIDACBS 30 Days #60 tablet 11/07/17 Lisinopril 5 mg PO DAILY 30 Days #30 tablet 11/07/17 Metformin HCl [Glucophage 500 mg Tablet] 1,000 mg PO BID 30 Days #60 tablet 08/22 Atorvastatin Calcium [Lipitor 10 mg Tablet] 10 mg PO DAILY #30 tablet 11/11/17 History of Present Illness History of Present Illness: VIVI WATTS is a 72 year old female Hospital Course Hospital Course: No changes have been made to the plan of care as outlined in discharge summary dictated on 11/07/2017. The patient stayed in the hospital additional days as she opted to go home with home health services. She lives with her sister who was out of town and came back last night. Her sister is picking her up this morning. On the day of discharge the patient has no complaints and is doing well. She will be discharged with home health services and close outpatient follow-up with her primary care physician. Physical Exam Vital Signs: Temp Pulse Resp BP Pulse Ox 98.7 F 93 16 152/89 H 100 11/11/17 07:19 11/11/17 07:19 11/11/17 07:19 11/11/17 07:19 11/11/17 07:19 Intake & Output 11/10/17 11/11/17 11/12/17 06:59 06:59 06:59 Intake Total 835 810 Output Total 1700 400 Balance -865 410 Weight 61 kg 61.5 kg General appearance: PRESENT: no acute distress, well-developed, well-nourished Head exam: PRESENT: atraumatic, normocephalic Eye exam: PRESENT: conjunctiva pink, EOMI, PERRLA. ABSENT: scleral icterus Mouth exam: PRESENT: moist, tongue midline Neck exam: ABSENT: carotid bruit, JVD, lymphadenopathy, thyromegaly Respiratory exam: PRESENT: clear to auscultation nena. ABSENT: rales, rhonchi, wheezes Cardiovascular exam: PRESENT: RRR. ABSENT: diastolic murmur, rubs, systolic murmur GI/Abdominal exam: PRESENT: normal bowel sounds, soft. ABSENT: distended, guarding, mass, organolmegaly, rebound, tenderness Rectal exam: PRESENT: deferred Extremities exam: PRESENT: full ROM. ABSENT: calf tenderness, clubbing, pedal edema Neurological exam: PRESENT: alert, awake, oriented to person, oriented to place , oriented to time, oriented to situation, CN II-XII grossly intact. ABSENT: motor sensory deficit Psychiatric exam: PRESENT: appropriate affect, normal mood. ABSENT: homicidal ideation, suicidal ideation Skin exam: PRESENT: dry, intact, warm. ABSENT: cyanosis, rash Results Laboratory Results: 11/06/17 08:18 Impressions: Chest X-Ray 11/03/17 16:01 IMPRESSION: NO ACUTE RADIOGRAPHIC FINDING IN THE CHEST. Head CT 11/03/17 16:01 IMPRESSION: NORMAL BRAIN CT WITHOUT CONTRAST. EVIDENCE OF ACUTE STROKE: NO. Head MRI 11/03/17 17:22 IMPRESSION: MILD TO MODERATE INCREASED DEEP HEMISPHERIC WHITE MATTER DISEASE. OTHERWISE, UNREMARKABLE MRI OF THE BRAIN WITHOUT INTRAVENOUS GADOLINIUM CONTRAST. EVIDENCE OF ACUTE STROKE: NO. Carotid Doppler Study 11/04/17 17:22 IMPRESSION: Atherosclerotic changes with no hemodynamically significant lesion. Qualifiers - * PATIENT BEING DISCHARGED WITH ANY OF THE FOLLOWING DIAGNOSIS: Stroke VTE patient discharged on overlapping Therapy?: No Reason(s) for not prescribing Overlap Therapy:: Tx not tolerated Stroke Pt being discharged on Anti-thrombolytic therapy?: Yes Stroke Pt being discharged on Anti-coagulation therapy?: No Reason(s) for not prescribing Anti-coagulation therapy:: Not indicated Stroke Pt being discharged on Statins?: Yes Plan Time Spent: Greater than 30 Minutes
[2017-11-11 10:48] VITALS: BP 143/75
== END 2017-11-11 12:09 | disposition home health service (06) | DRG 682 ==
LOC: ER 15:53 → EH 17:27 → 3N 20:02 → OBSVTOIN 11-04 09:49
PROVIDERS: ADMIT Internal Medicine; ATTEND Emergency Medicine
DX: N17.9 Acute kidney failure, unspecified (principal); G93.40 Encephalopathy, unspecified; E87.1 Hypo-osmolality and hyponatremia; G45.9 Transient cerebral ischemic attack, unspecified; E86.0 Dehydration; I10 Essential (primary) hypertension; R55 Syncope and collapse; E11.9 Type 2 diabetes mellitus without complications; D64.9 Anemia, unspecified; F32.9 Major depressive disorder, single episode, unspecified; R41.9 Unspecified symptoms and signs involving cognitive functions and awareness; Z60.0 Problems of adjustment to life-cycle transitions
CPT/HCPCS: 36415; 70450; 70551; 71045; 80048; 80053; 82550; 82553; 82962; 84443; 84484; 85025; 85027; 85610; 85730; 93005; 93010; 93880; 96360; 99285; G8978-GP; G8979-GP; G8987-GO; G8988-GO; J1650; J1815; J3490; J7030

== ENCOUNTER 2019-03-01 12:35 | Inpatient (IN) | payer MEDICARE ==
--- NOTE | 2019-03-01 13:11 | ER Document Report ---
ED Medical Screen (RME) - General Chief Complaint: Abscess Stated Complaint: POSSIBLE CYST Time Seen by Provider: 03/01/19 13:08 Primary Care Provider: MORENA WAYNE MD [Primary Care Provider] - Follow up as needed Mode of Arrival: Wheelchair Information source: Patient Notes: This 73-year-old female presents with an abscess on her left buttock into the gluteal fold possibly around her rectal area. Denies history of MRSA. Denies fever vomiting diarrhea. Reports abscess for the past week. Patient is a diabetic I have greeted and performed a rapid initial assessment of this patient. A comprehensive ED assessment and evaluation of the patient, analysis of test results and completion of the medical decision making process will be conducted by additional ED providers. Dictation of this chart was performed using voice recognition software; therefore, there may be some unintended grammatical errors. TRAVEL OUTSIDE OF THE [place] IN LAST 30 DAYS: No - Related Data Allergies/Adverse Reactions: No Known Allergies Allergy (Verified 03/01/19 13:05) Past Medical History - Social History Chew tobacco use (# tins/day): No Frequency of alcohol use: None Drug Abuse: None - Past Medical History Cardiac Medical History: Reports: Hx Hypertension - white coat syndrome Denies: Hx Heart Attack Pulmonary Medical History: Denies: Hx Asthma Neurological Medical History: Denies: Hx Cerebrovascular Accident, Hx Seizures Endocrine Medical History: Reports: Hx Diabetes Mellitus Type 2 Renal/ Medical History: Denies: Hx Peritoneal Dialysis Psychiatric Medical History: Denies: Hx Depression - Immunizations History of Influenza Vaccine for 03/2017 - 08/2017 Season: Unknown Physical Exam - Vital signs Vitals: Temp Pulse Resp BP Pulse Ox 98.6 F 94 18 136/60 H 98 03/01/19 13:03 03/01/19 13:03 03/01/19 13:03 03/01/19 13:03 03/01/19 13:03 Course - Vital Signs Vital signs: Temp Pulse Resp BP Pulse Ox 98.6 F 94 18 136/60 H 98 03/01/19 13:03 03/01/19 13:03 03/01/19 13:03 03/01/19 13:03 03/01/19 13:03 Doctor's Discharge - Discharge Referrals: MORENA WAYNE MD [Primary Care Provider] - Follow up as needed
--- NOTE | 2019-03-01 14:14 | ER Document Report ---
ED Medical Screen (RME) - General Chief Complaint: Abscess Stated Complaint: POSSIBLE CYST Time Seen by Provider: 03/01/19 13:08 Primary Care Provider: MORENA WAYNE MD [Primary Care Provider] - Follow up as needed Mode of Arrival: Wheelchair Information source: Patient Notes: Patient has a perirectal abscess that goes down to the rectum above to the where the pilonidal cyst area is and then over to the left buttocks. It is a large abscess on the left buttocks. Patient is alert oriented respirations regular nonlabored speaking in full sentences. I have greeted and performed a rapid initial assessment of this patient. A comprehensive ED assessment and evaluation of the patient, analysis of test results and completion of medical decision making process will be conducted by an additional ED providers. TRAVEL OUTSIDE OF THE [place] IN LAST 30 DAYS: No - Related Data Allergies/Adverse Reactions: No Known Allergies Allergy (Verified 03/01/19 13:05) Past Medical History - Social History Chew tobacco use (# tins/day): No Frequency of alcohol use: None Drug Abuse: None - Past Medical History Cardiac Medical History: Reports: Hx Hypertension - white coat syndrome Denies: Hx Heart Attack Pulmonary Medical History: Denies: Hx Asthma Neurological Medical History: Denies: Hx Cerebrovascular Accident, Hx Seizures Endocrine Medical History: Reports: Hx Diabetes Mellitus Type 2 Renal/ Medical History: Denies: Hx Peritoneal Dialysis Psychiatric Medical History: Denies: Hx Depression - Immunizations History of Influenza Vaccine for 03/2017 - 08/2017 Season: Unknown Physical Exam - Vital signs Vitals: Temp Pulse Resp BP Pulse Ox 98.6 F 94 18 136/60 H 98 03/01/19 13:03 03/01/19 13:03 03/01/19 13:03 03/01/19 13:03 03/01/19 13:03 Course - Vital Signs Vital signs: Temp Pulse Resp BP Pulse Ox 98.6 F 94 18 136/60 H 98 03/01/19 13:03 03/01/19 13:03 03/01/19 13:03 03/01/19 13:03 03/01/19 13:03 Doctor's Discharge - Discharge Referrals: MORENA WAYNE MD [Primary Care Provider] - Follow up as needed
[2019-03-01 14:49] LABS: HEMOGLOBIN 10.4 g/dL (12.0-15.5); MEAN CORPUSCULAR HEMOGLOBIN 31.8 pg (27.0-33.4); MEAN CORPUSCULAR HGB CONC 33.5 g/dL (32.0-36.0); MEAN CORPUSCULAR VOLUME 95 fl (80-97); PLATELET COUNT 240 10^3/uL (150-450); RED BLOOD COUNT 3.27 10^6/uL (3.72-5.28); RED CELL DISTRIBUTION WIDTH 13.7 % (11.5-14.0); WHITE BLOOD COUNT 15.4 10^3/uL (4.0-10.5)
[2019-03-01 15:00] LABS: ALBUMIN 3.4 g/dL (3.5-5.0); ALKALINE PHOSPHATASE 115 U/L (38-126); ANION GAP 13 (5-19); ASPARTATE AMINO TRANSFERASE 37 U/L (14-36); BILIRUBIN,DIRECT 0.5 mg/dL (0.0-0.4); BILIRUBIN,TOTAL 1.4 mg/dL (0.2-1.3); BLOOD UREA NITROGEN 31 mg/dL (7-20); CALCIUM 9.1 mg/dL (8.4-10.2); CARBON DIOXIDE 25 mmol/L (22-30); CHLORIDE 92 mmol/L (98-107); GLUCOSE 184 mg/dL (75-110); POTASSIUM 4.3 mmol/L (3.6-5.0); TOTAL PROTEIN 7.5 g/dL (6.3-8.2)
[2019-03-01 15:22] LABS: ABSOLUTE LYMPHOCYTES# (MANUAL) 1.7 10^3/uL (0.5-4.7); ABSOLUTE MONOCYTES # (MANUAL) 0.3 10^3/uL (0.1-1.4); BAND NEUTROPHILS % (MANUAL) 3 % (3-5); BASOPHILS % (MANUAL) 0 % (0-2); EOSINOPHILS % (MANUAL) 0 % (0-6); LYMPHOCYTES % (MANUAL) 11 % (13-45); MONOCYTES % (MANUAL) 2 % (3-13); SEGMENTED NEUTROPHILS % (MAN) 84 % (42-78); TOTAL CELLS COUNTED 100
[2019-03-01 15:24] LABS: PLATELET COMMENT ADEQUATE
--- NOTE | 2019-03-01 16:01 | ER Document Report ---
ED General - General Chief Complaint: Abscess Stated Complaint: POSSIBLE CYST Time Seen by Provider: 03/01/19 13:08 Mode of Arrival: Wheelchair TRAVEL OUTSIDE OF THE [place] IN LAST 30 DAYS: No - HPI Notes: Patient presents with proxy 1 week of buttock abscess that has become more p ainful last week and over the last several days has been getting have generalized weakness and absence of any recent fevers chills cough congestion abdominal pain nausea vomiting or diarrhea. Patient is diabetic she has been taking her medications as prescribed. - Related Data Allergies/Adverse Reactions: No Known Allergies Allergy (Verified 03/01/19 13:05) Past Medical History - General Information source: Patient - Social History Smoking Status: Former Smoker Chew tobacco use (# tins/day): No Frequency of alcohol use: None Drug Abuse: None Family History: Reviewed & Not Pertinent, CAD, DM, Hypertension Patient has suicidal ideation: No Patient has homicidal ideation: No - Past Medical History Cardiac Medical History: Reports: Hx Hypertension - white coat syndrome Denies: Hx Heart Attack Pulmonary Medical History: Denies: Hx Asthma Neurological Medical History: Denies: Hx Cerebrovascular Accident, Hx Seizures Endocrine Medical History: Reports: Hx Diabetes Mellitus Type 2 Renal/ Medical History: Denies: Hx Peritoneal Dialysis Psychiatric Medical History: Denies: Hx Depression Review of Systems - Review of Systems Constitutional: No symptoms reported EENT: No symptoms reported Cardiovascular: No symptoms reported Respiratory: No symptoms reported Gastrointestinal: Other Genitourinary: No symptoms reported Female Genitourinary: No symptoms reported Musculoskeletal: No symptoms reported Skin: Other Hematologic/Lymphatic: No symptoms reported Neurological/Psychological: No symptoms reported Physical Exam - Vital signs Vitals: Temp Pulse Resp BP Pulse Ox 98.6 F 94 18 136/60 H 98 03/01/19 13:03 03/01/19 13:03 03/01/19 13:03 03/01/19 13:03 03/01/19 13:03 - General General appearance: Appears well, Alert - HEENT Head: Normocephalic Eyes: Normal Conjunctiva: Normal Cornea: Normal Extraocular movements intact: Yes Pupils: PERRL - Respiratory Respiratory status: No respiratory distress Chest status: Nontender Breath sounds: Normal Chest palpation: Normal - Cardiovascular Rhythm: Regular Heart sounds: Normal auscultation Murmur: No - Abdominal Inspection: Normal Distension: No distension Bowel sounds: Normal - Rectal Tenderness: Yes Hemorrhoids: Other - No bogginess palpated with digital rectal exam. No: Anal fissure Notes: Patient has approximately 4 x 2 inch bogginess consistent with abscess on right medial buttock - Extremities General upper extremity: Normal inspection, Normal ROM General lower extremity: Normal inspection, Normal ROM - Neurological Neuro grossly intact: Yes Cognition: Normal Orientation: AAOx4 Course - Re-evaluation Re-evalutation: 03/02/19 00:08 Abscess was drained at bedside by Dr. Geiger was admitted by him for further observation. Clindamycin was provided in the emergency department. - Vital Signs Vital signs: Temp Pulse Resp BP Pulse Ox 99.5 F 101 H 20 122/64 95 03/01/19 19:45 03/01/19 19:45 03/01/19 19:09 03/01/19 19:45 03/01/19 19:45 - Laboratory Result Diagrams: 03/01/19 14:30 03/01/19 14:30 Laboratory results interpreted by me: 03/01/19 03/01/19 14:30 14:30 WBC 15.4 H RBC 3.27 L Hgb 10.4 L Hct 31.0 L Seg Neuts % (Manual) 84 H Lymphocytes % (Manual) 11 L Monocytes % (Manual) 2 L Abs Neuts (Manual) 13.4 H Sodium 129.7 L Chloride 92 L BUN 31 H Creatinine 1.39 H Est GFR ( Amer) 45 L Est GFR (MDRD) Non-Af 37 L Glucose 184 H Total Bilirubin 1.4 H Direct Bilirubin 0.5 H AST 37 H Albumin 3.4 L Discharge - Discharge Clinical Impression: Gluteal abscess Condition: Good Disposition: ADMITTED OBSERVATION Admitting Provider: Juanjo Unit Admitted: Surgical Floor
[2019-03-01] MEDS ORDERED: NORMAL SALINE 500 ML IV ONE (16:59)
--- NOTE | 2019-03-01 19:24 | RADIOLOGY REPORT (SQ) ---
EXAM DESCRIPTION: CT ABDOMEN WITH IV ORAL CONT COMPLETED DATE/TIME: 03/01/2019 7:10 pm REASON FOR STUDY: buttock abscess, eval is fistula to rectum, etc. COMPARISON: None. TECHNIQUE: CT scan of the abdomen and pelvis performed with intravenous and oral contrast using carly teresa scanning technique with dynamic intravenous contrast injection. Images reviewed with lung, soft t issue, and bone windows. Reconstructed coronal and sagittal MPR images reviewed. Delayed images for e valuation of the urinary system also acquired. All images stored on PACS. All CT scanners at this facility use dose modulation, iterative reconstruction, and/or weight based d osing when appropriate to reduce radiation dose to as low as reasonably achievable (ALARA). [facility]: Dose Right [facility]: CareDose [facility]: Dose Right [facility]: Teradose 4D [facility]: iStorez CONTRAST TYPE AND DOSE: contrast/concentration: Isovue 350.00 mg/ml; Total Contrast Delivered: 100.0 ml; Total Saline Delivered: 72.0 ml RENAL FUNCTION: Creatinine 1.4 RADIATION DOSE: CT Rad equipment meets quality standard of care and radiation dose reduction techniq ues were employed. CTDIvol: 8.4 - 11.8 mGy. DLP: 1168 mGy-cm. . LIMITATIONS: None. FINDINGS: LOWER CHEST: No significant findings. No nodules or infiltrates. LIVER: Normal size. No masses. No dilated ducts. SPLEEN: Normal size. No focal lesions. PANCREAS: No masses. No significant calcifications. No adjacent inflammation or peripancreatic fluid collections. Pancreatic duct not dilated. GALLBLADDER: No identified stones by CT criteria. No inflammatory changes to suggest cholecystitis. ADRENAL GLANDS: No significant masses or asymmetry. RIGHT KIDNEY AND URETER: No solid masses. No significant calcifications. No hydronephrosis or hyd roureter. LEFT KIDNEY AND URETER: No solid masses. No significant calcifications. No hydronephrosis or hydr oureter. AORTA AND VESSELS: No aneurysm. No dissection. Renal arteries, SMA, celiac without stenosis. RETROPERITONEUM: No retroperitoneal adenopathy, hemorrhage or masses. BOWEL AND PERITONEAL CAVITY: No obstruction. No visualized masses. No free fluid. No inflammatory ch anges or thickening of bowel wall. APPENDIX: Not visualized. PELVIS: Calcified uterine fibroid. ABDOMINAL WALL: No masses. No hernias. BONES: No significant or acute findings. OTHER: There is a 6 cm abscess present in the medial left buttocks soft tissues. There is no communi cation with the rectum. Rectal fascia appears intact. IMPRESSION: 6 cm abscess in the medial left buttock adjacent to the perirectal fascia but no identif ied communication. TECHNICAL DOCUMENTATION: JOB ID: [id number] Quality ID # [id number]: Final reports with documentation of one or more dose reduction techniques (e.g., Au tomated exposure control, adjustment of the mA and/or kV according to patient size, use of iterative reconstruction technique) 2010 [employer]- All Rights Reserved Reading location - IP/workstation name: [email or web address]
[2019-03-01] MEDS ORDERED: FENTANYL CITRATE INJ/PF 100 MCG/2 ML AMPUL IV ONE ×2 (20:20→23:13)
[2019-03-01] MEDS ORDERED: CLINDAMYCIN 600 MG/D5W RTU 600 MG/50 ML RTUPB IV ONE (20:29)
[2019-03-01] MEDS ORDERED: CLINDAMYCIN 600 MG/D5W RTU 600 MG/50 ML RTUPB IV SCH (22:00)
[2019-03-01] MEDS ORDERED: LIDOCAINE 1%/EPINEPHRINE INJ 20 ML VIAL ONE (22:59)
[2019-03-01] MEDS ORDERED: ONDANSETRON HCL INJ/PF 4 MG/2 ML SDV IV PRN (23:03)
[2019-03-01] MEDS ORDERED: DEXTROSE 50%-WATER 25 GM/50 ML DISP.SYRIN IV PRN ×2 (23:07)
[2019-03-01] MEDS ORDERED: DEXTROSE 40% GEL 15 GM TUBE PO PRN ×2 (23:07)
[2019-03-01] MEDS ORDERED: GLUCAGON,HUMAN RECOMB 1 MG INJ IM PRN (23:07)
[2019-03-01] MEDS ORDERED: PIPERACILLIN/TAZOBACTAM 3.375 GM VIAL IV PRN (23:15)
[2019-03-02] MEDS: MORPHINE SULFATE 10 MG/ML INJ IV PRN ×2 (00:57→04:31)
[2019-03-02] MEDS: PIPERACILLIN SODIUM/TAZOBACTAM 3.375 GM in NORMAL SALINE 100 ML IV SCH ×2 (00:58→06:24)
--- NOTE | 2019-03-02 01:11 | PDOC H&P ---
History of Present Illness Admission Date/PCP: 03/01/19 23:27 MORENA WAYNE MD Patient complains of: Buttock swelling and pain History of Present Illness: VIVI WATTS is a 73 year old female with a one-week history of swelling and pain to the left buttock in the kari-rectal area. Patient denies significant fevers and chills, although she does report malaise and fatigue. Patient denies hematochezia, hematemesis, or previous anorectal fistula. The pain is sharp and stabbing. The patient reports that it is 10 out of 10. Nothing makes it better. Palpation and sitting make it worse. Her pain does not radiate. The patient denies chest pain, shortness of breath, nausea, vomiting, headache, blurry vision, hearing difficulty, paresthesias. Past Medical History Cardiac Medical History: Reports: Hypertension - white coat syndrome Denies: Myocardial Infarction Pulmonary Medical History: Denies: Asthma Neurological Medical History: Denies: Seizures Endocrine Medical History: Reports: Diabetes Mellitus Type 2 Psychiatric Medical History: Denies: Depression Hematology: Denies: Anemia, Sickle Cell Disease Past Surgical History Past Surgical History: Denies: Amputation Social History Smoking Status: Former Smoker Frequency of Alcohol Use: None Hx Recreational Drug Use: No Drugs: None Hx Prescription Drug Abuse: No Family History Family History: Reviewed & Not Pertinent, CAD, DM, Hypertension Parental Family History Reviewed: Yes Children Family History Reviewed: Yes Sibling(s) Family History Reviewed.: Yes Medication/Allergy Home Medications: Aspirin [Ecotrin 81 mg EC Tablet] 81 mg PO DAILY 30 Days #30 tabec 11/07/17 Atorvastatin Calcium [Lipitor 10 mg Tablet] 10 mg PO DAILY 30 Days #30 tablet 11/07/17 Carvedilol [Coreg 12.5 mg Tablet] 12.5 mg PO Q12 30 Days #60 tablet 11/07/17 Glipizide [Glucotrol 5 mg Tablet] 2.5 mg PO BIDACBS 30 Days #60 tablet 11/07/17 Lisinopril 5 mg PO DAILY 30 Days #30 tablet 11/07/17 Metformin HCl [Glucophage 500 mg Tablet] 1,000 mg PO BID 30 Days #60 tablet 11/07/17 Atorvastatin Calcium [Lipitor 10 mg Tablet] 10 mg PO DAILY #30 tablet 11/11/17 Allergies/Adverse Reactions: No Known Allergies Allergy (Verified 03/01/19 13:05) Review of Systems Constitutional: PRESENT: chills, fatigue Eyes: ABSENT: visual disturbances Ears: ABSENT: hearing changes Nose, Mouth, and Throat: ABSENT: sore throat Cardiovascular: ABSENT: chest pain Respiratory: ABSENT: cough, dyspnea Gastrointestinal: PRESENT: other - Rectal pain. ABSENT: abdominal pain Genitourinary: ABSENT: dysuria Musculoskeletal: ABSENT: back pain Integumentary: ABSENT: rash Neurological: ABSENT: confusion, convulsions, dizziness Psychiatric: ABSENT: anxiety, depression Endocrine: ABSENT: cold intolerance, heat intolerance Hematologic/Lymphatic: ABSENT: easy bleeding, easy bruising Physical Exam Vital Signs: Temp Pulse Resp BP Pulse Ox 99.5 F 101 H 20 122/64 95 03/01/19 19:45 03/01/19 19:45 03/01/19 19:09 03/01/19 19:45 03/01/19 19:45 Intake & Output 02/28/19 03/01/19 03/02/19 06:59 06:59 06:59 Intake Total 550 Balance 550 Weight 93.4 kg General appearance: PRESENT: cooperative Head exam: PRESENT: atraumatic, normocephalic Eye exam: PRESENT: EOMI, PERRLA. ABSENT: scleral icterus Mouth exam: PRESENT: neck supple Neck exam: ABSENT: tenderness, thyromegaly, tracheal deviation Respiratory exam: PRESENT: clear to auscultation nena, symmetrical, unlabored. ABSENT: chest wall tenderness, tachypnea, wheezes Cardiovascular exam: PRESENT: RRR Pulses: PRESENT: normal radial pulses Vascular exam: PRESENT: normal capillary refill. ABSENT: pallor GI/Abdominal exam: PRESENT: soft. ABSENT: distended, firm, tenderness Rectal exam: PRESENT: normal rectal tone Extremities exam: ABSENT: clubbing Neurological exam: PRESENT: alert, awake, oriented to person, oriented to place, oriented to time, oriented to situation Psychiatric exam: ABSENT: agitated, anxious, depressed Focused psych exam: ABSENT: delusional Skin exam: PRESENT: erythema, other - Large abscess to the left buttock, in the perianal region. Results Laboratory Results: 03/01/19 14:30 03/01/19 14:30 03/01/19 03/01/19 03/01/19 14:30 14:30 17:20 WBC 15.4 H RBC 3.27 L Hgb 10.4 L Hct 31.0 L MCV 95 MCH 31.8 MCHC 33.5 RDW 13.7 Plt Count 240 Seg Neutrophils % Not Reportable Sodium 129.7 L Potassium 4.3 Chloride 92 L Carbon Dioxide 25 Anion Gap 13 BUN 31 H Creatinine 1.39 H Est GFR ( Amer) 45 L Glucose 184 H Lactic Acid 1.6 Calcium 9.1 Total Bilirubin 1.4 H AST 37 H Alkaline Phosphatase 115 Total Protein 7.5 Albumin 3.4 L Impressions: Abdomen CT 03/01/19 15:57 IMPRESSION: 6 cm abscess in the medial left buttock adjacent to the perirectal fascia but no identified communication. Assessment & Plan - Diagnosis (1) Perianal abscess Is this a current diagnosis for this admission?: Yes - Plan Summary Plan Summary: This is a 73-year-old female with a kari-anal abscess. It is superficial and fluctuant. I have recommended bedside drainage to expedite her recovery. [facility]. Risks/benefits discussed, informed consent obtained, and all questions answered. Will incise and drain the abscess in the ER now area I will then admit the patient to the floor for intravenous antibiotics. Start Zosyn.
--- NOTE | 2019-03-02 01:16 | Operative Report ---
Nonrecallable Operative Report DATE OF SURGERY: 03/02/19 PREOPERATIVE DIAGNOSIS: Perianal abscess POSTOPERATIVE DIAGNOSIS: Same OPERATION: Incision and drainage of a large perianal abscess SURGEON: LUKASZ QUINTANILLA ANESTHESIA: Local TISSUE REMOVED OR ALTERED: None COMPLICATIONS: None apparent ESTIMATED BLOOD LOSS: Minimal PROCEDURE: Drains/implants: 4 x 4 packing. Procedure in detail: After informed consent was obtained, the patient was laid in the left lateral decubitus position in the emergency department. The area of the left buttock was prepped and draped in a normal sterile fashion. 1% lidocaine with epinephrine was used to anesthetize the area. An elliptical incision was then created over the area of maximal fluctuance. A portion of the overlying skin was removed. Underneath, a large amount of purulent material was identified. The cavity was irrigated and cleaned. The wound was then packed wi th a 4 x 4 gauze. Dressing was placed, and the procedure was concluded. All sponge, instrument, and needle counts were correct x2. Condition: Stable.
[2019-03-02] MEDS: NORMAL SALINE 1000 ML 1,000 ML IV PRN (04:45)
[2019-03-02 07:43] LABS: HEMATOCRIT 26.7 % (36.0-47.0); HEMOGLOBIN 8.9 g/dL (12.0-15.5); MEAN CORPUSCULAR HEMOGLOBIN 31.6 pg (27.0-33.4); MEAN CORPUSCULAR HGB CONC 33.2 g/dL (32.0-36.0); MEAN CORPUSCULAR VOLUME 95 fl (80-97); PLATELET COUNT 221 10^3/uL (150-450); WHITE BLOOD COUNT 19.8 10^3/uL (4.0-10.5)
[2019-03-02 08:02] LABS: ANION GAP 15 (5-19); BLOOD UREA NITROGEN 40 mg/dL (7-20); CALCIUM 8.6 mg/dL (8.4-10.2); CARBON DIOXIDE 21 mmol/L (22-30); CHLORIDE 94 mmol/L (98-107); GLUCOSE 121 mg/dL (75-110); POTASSIUM 4.5 mmol/L (3.6-5.0)
[2019-03-02 08:14] LABS: ABSOLUTE LYMPHOCYTES# (MANUAL) 0.2 10^3/uL (0.5-4.7); ANISOCYTOSIS SLIGHT; BASOPHILS % (MANUAL) 0 % (0-2); EOSINOPHILS % (MANUAL) 0 % (0-6); LYMPHOCYTES % (MANUAL) 1 % (13-45); MONOCYTES % (MANUAL) 10 % (3-13); PLATELET GIANT PRESENT; SEGMENTED NEUTROPHILS % (MAN) 89 % (42-78); TOTAL CELLS COUNTED 100; TOXIC GRANULATION SLIGHT; TOXIC VACUOLATION PRESENT
[2019-03-02 08:15] LABS: PLATELET COMMENT ADEQUATE
[2019-03-02] MEDS: INSULIN LISPRO 100 UNIT/ML 3 ML VIAL SUBCUT SCH ×4 (09:06→21:46)
[2019-03-02] MEDS ORDERED: ENOXAPARIN SODIUM INJ 40 MG/0.4 ML DISP.SYRIN SUBCUT SCH (10:00)
[2019-03-02] MEDS: KETOROLAC TROMETHAMINE INJ/PF 30 MG/1 ML SDV IV PRN (12:46)
[2019-03-02] MEDS: PIPERACILLIN SODIUM/TAZOBACTAM 2.25 GM in NORMAL SALINE 50 ML IV SCH ×2 (14:40→21:46)
--- NOTE | 2019-03-02 19:43 | PDOC PROGRESS REPORT ---
Subjective Progress Note for:: 03/02/19 Subjective:: pains left gluteal area Reason For Visit: BUTTOCK ABSCESS Physical Exam Vital Signs: Temp Pulse Resp BP Pulse Ox 98.3 F 84 19 88/51 L 99 03/02/19 15:37 03/02/19 15:37 03/02/19 15:37 03/02/19 15:37 03/02/19 15:37 Intake & Output 03/01/19 03/02/19 03/03/19 06:59 06:59 06:59 Intake Total 650 770 Balance 650 770 Weight 93.4 kg 67.9 kg Exam: Packing from the left gluteal area was removed. No active drainage noted. It was then repacked with quarter inch iodoform gauze. Results Laboratory Results: 03/02/19 07:33 03/02/19 07:33 03/02/19 03/02/19 07:33 07:33 WBC 19.8 H RBC 2.80 L Hgb 8.9 L Hct 26.7 L MCV 95 MCH 31.6 MCHC 33.2 RDW 14.0 Plt Count 221 Seg Neutrophils % Not Reportable Sodium 129.8 L Potassium 4.5 Chloride 94 L Carbon Dioxide 21 L Anion Gap 15 BUN 40 H Creatinine 2.01 H Est GFR ( Amer) 29 L Glucose 121 H Calcium 8.6 Impressions: Abdomen CT 03/01/19 15:57 IMPRESSION: 6 cm abscess in the medial left buttock adjacent to the perirectal fascia but no identified communication. Assessment & Plan - Diagnosis (1) Gluteal abscess Is this a current diagnosis for this admission?: Yes (2) Diabetes mellitus Qualifiers: Diabetes mellitus type: type 2 Diabetes mellitus halfway insulin use: without parts counterman use Is this a current diagnosis for this admission?: Yes - Time Time Spent with patient: 15-24 minutes - Inpatient Certification Medical Necessity: Need for IV Antibiotics, Risk of Complication if Not Cared For in Hospital - Plan Summary Plan Summary: Packing from the left gluteal area was removed and a new packing using quarter inch iodoform gauze was used. No no drainage nor any bleeding noted. The packing will be replaced tomorrow and arrangements will be made for [facility] follow- up on discharge.
[2019-03-03] MEDS: PIPERACILLIN SODIUM/TAZOBACTAM 2.25 GM in NORMAL SALINE 50 ML IV SCH ×4 (04:23→21:18)
[2019-03-03] MEDS: KETOROLAC TROMETHAMINE INJ/PF 30 MG/1 ML SDV IV PRN ×3 (07:39→23:23)
[2019-03-03] MEDS: NORMAL SALINE 1000 ML 1,000 ML IV PRN ×2 (07:39→21:18)
[2019-03-03] MEDS: INSULIN LISPRO 100 UNIT/ML 3 ML VIAL SUBCUT SCH ×4 (08:38→21:14)
[2019-03-03] MEDS: ENOXAPARIN SODIUM INJ 30 MG/0.3 ML DISP.SYRIN SUBCUT SCH (10:06)
--- NOTE | 2019-03-03 11:33 | PDOC PROGRESS REPORT ---
Subjective Progress Note for:: 03/03/19 Subjective:: less pains Reason For Visit: BUTTOCK ABSCESS Physical Exam Vital Signs: Temp Pulse Resp BP Pulse Ox 98.3 F 73 18 83/44 L 99 03/03/19 08:00 03/03/19 08:00 03/03/19 08:00 03/03/19 08:00 03/03/19 08:00 Intake & Output 03/02/19 03/03/19 03/04/19 06:59 06:59 06:59 Intake Total 650 1870 Output Total 75 Balance 650 1795 Weight 93.4 kg 73.7 kg Exam: packing removed. The wound on the left gluteal area appears to be relatively clean with minimal drainage. A new packing with quarter inch iodoform gauze was placed. Results Laboratory Results: 03/02/19 07:33 03/02/19 07:33 Impressions: Abdomen CT 03/01/19 15:57 IMPRESSION: 6 cm abscess in the medial left buttock adjacent to the perirectal fascia but no identified communication. Assessment & Plan - Diagnosis (1) Gluteal abscess Is this a current diagnosis for this admission?: Yes (2) Diabetes mellitus Qualifiers: Diabetes mellitus type: type 2 Diabetes mellitus prison insulin use: without manager terminal use Is this a current diagnosis for this admission?: Yes - Time Time Spent with patient: 15-24 minutes - Inpatient Certification Medical Necessity: Need for IV Antibiotics - Plan Summary Plan Summary: Continue iv antibiotics for another 24 hours. Continue with gentle packing of the wound. Arrange follow-up with [facility] home visits for wound care. Plan to discharge the patient tomorrow and follow-up in the surgical clinic in 2weeks. We will give her p.o. antibiotics for the next 7 to 10 days. Need to encourage p.o. intake so wound healing will be better. This was explained to the patient as well as to her twin sister who was at bedside.
[2019-03-03 12:54] LABS: HEMATOCRIT 24.8 % (36.0-47.0); HEMOGLOBIN 8.4 g/dL (12.0-15.5); MEAN CORPUSCULAR HGB CONC 33.7 g/dL (32.0-36.0); MEAN CORPUSCULAR VOLUME 95 fl (80-97); PLATELET COUNT 219 10^3/uL (150-450); RED BLOOD COUNT 2.61 10^6/uL (3.72-5.28); RED CELL DISTRIBUTION WIDTH 13.9 % (11.5-14.0); WHITE BLOOD COUNT 17.6 10^3/uL (4.0-10.5)
[2019-03-03 13:24] LABS: ABSOLUTE LYMPHOCYTES# (MANUAL) 0.9 10^3/uL (0.5-4.7); ABSOLUTE MONOCYTES # (MANUAL) 0.7 10^3/uL (0.1-1.4); BASOPHILS % (MANUAL) 0 % (0-2); EOSINOPHILS % (MANUAL) 0 % (0-6); LYMPHOCYTES % (MANUAL) 5 % (13-45); MONOCYTES % (MANUAL) 4 % (3-13); SEGMENTED NEUTROPHILS % (MAN) 91 % (42-78); TOTAL CELLS COUNTED 100
[2019-03-03 13:25] LABS: OVALOCYTES SLIGHT; PLATELET COMMENT ADEQUATE; POIKILOCYTOSIS SLIGHT; ROULEAUX SLIGHT; TOXIC GRANULATION SLIGHT; TOXIC VACUOLATION PRESENT
[2019-03-03] MEDS ORDERED: ALPRAZOLAM 0.5 MG TABLET PO ONE (21:00)
[2019-03-04] MEDS: PIPERACILLIN SODIUM/TAZOBACTAM 2.25 GM in NORMAL SALINE 50 ML IV SCH ×4 (04:25→22:25)
[2019-03-04] MEDS: KETOROLAC TROMETHAMINE INJ/PF 30 MG/1 ML SDV IV PRN ×2 (04:58→22:25)
[2019-03-04 05:05] LABS: APPEARANCE,URINE SLIGHTLY-CLOUDY; BILIRUBIN,URINE NEGATIVE (NEGATIVE); COLOR,URINE YELLOW; GLUCOSE, URINE NEGATIVE (NEGATIVE); KETONES,URINE NEGATIVE (NEGATIVE); LEUKOCYTE ESTERASE,URINE NEGATIVE (NEGATIVE); NITRITE,URINE NEGATIVE (NEGATIVE); PROTEIN,URINE NEGATIVE (NEGATIVE); URINE SPECIFIC GRAVITY 1.032
[2019-03-04 07:48] LABS: HEMATOCRIT 26.5 % (36.0-47.0); HEMOGLOBIN 8.7 g/dL (12.0-15.5); MEAN CORPUSCULAR HEMOGLOBIN 31.4 pg (27.0-33.4); MEAN CORPUSCULAR HGB CONC 32.7 g/dL (32.0-36.0); MEAN CORPUSCULAR VOLUME 96 fl (80-97); PLATELET COUNT 252 10^3/uL (150-450); RED BLOOD COUNT 2.75 10^6/uL (3.72-5.28); RED CELL DISTRIBUTION WIDTH 14.3 % (11.5-14.0); WHITE BLOOD COUNT 21.4 10^3/uL (4.0-10.5)
[2019-03-04 08:18] LABS: ABSOLUTE LYMPHOCYTES# (MANUAL) 1.7 10^3/uL (0.5-4.7); ABSOLUTE MONOCYTES # (MANUAL) 1.1 10^3/uL (0.1-1.4); BAND NEUTROPHILS % (MANUAL) 2 % (3-5); BASOPHILS % (MANUAL) 0 % (0-2); EOSINOPHILS % (MANUAL) 1 % (0-6); LYMPHOCYTES % (MANUAL) 8 % (13-45); MONOCYTES % (MANUAL) 5 % (3-13); SEGMENTED NEUTROPHILS % (MAN) 84 % (42-78); TOTAL CELLS COUNTED 100
[2019-03-04 08:19] LABS: BURR CELLS 1+; PLATELET COMMENT ADEQUATE; PLATELET LARGE PRESENT; POLYCHROMASIA SLIGHT; SMUDGE CELLS PRESENT; TOXIC VACUOLATION PRESENT
--- NOTE | 2019-03-04 08:58 | PDOC PROGRESS REPORT ---
Subjective Progress Note for:: 03/04/19 Reason For Visit: BUTTOCK ABSCESS Physical Exam Vital Signs: Temp Pulse Resp BP Pulse Ox 98.6 F 81 16 110/46 L 95 03/03/19 23:24 03/03/19 23:24 03/03/19 23:24 03/03/19 23:24 03/03/19 23:24 Intake & Output 03/03/19 03/04/19 03/05/19 06:59 06:59 06:59 Intake Total 1870 1920 Output Total 75 350 Balance 1795 1570 Weight 73.7 kg 75 kg General appearance: PRESENT: mild distress Head exam: PRESENT: normocephalic Eye exam: PRESENT: EOMI Ear exam: PRESENT: TM's normal bilaterally Mouth exam: PRESENT: moist Teeth exam: PRESENT: poor dentation Neck exam: PRESENT: full ROM Respiratory exam: PRESENT: clear to auscultation nena Cardiovascular exam: PRESENT: RRR Pulses: PRESENT: +2 pedal pulses bilateral GI/Abdominal exam: PRESENT: soft Rectal exam: PRESENT: other - left buttock wound still with purulent drainage and some necrotic fat Extremities exam: PRESENT: full ROM Musculoskeletal exam: PRESENT: full ROM Neurological exam: PRESENT: awake, oriented to person, oriented to place Psychiatric exam: PRESENT: appropriate affect Skin exam: PRESENT: dry Results Laboratory Results: 03/04/19 07:35 03/02/19 07:33 03/03/19 03/04/19 03/04/19 12:30 03:25 07:35 WBC 17.6 H 21.4 H RBC 2.61 L 2.75 L Hgb 8.4 L 8.7 L Hct 24.8 L 26.5 L MCV 95 96 MCH 32.0 31.4 MCHC 33.7 32.7 RDW 13.9 14.3 H Plt Count 219 252 Seg Neutrophils % Not Reportable Not Reportable Urine Color YELLOW Urine Appearance SLIGHTLY-CLOUDY Urine pH 5.0 Ur Specific [place] 1.032 Urine Protein NEGATIVE Urine Glucose (UA) NEGATIVE Urine Ketones NEGATIVE Urine Blood NEGATIVE Urine Nitrite NEGATIVE Ur Leukocyte Esterase NEGATIVE Urine WBC (Auto) 3 Urine RBC (Auto) 1 Impressions: Abdomen CT 03/01/19 15:57 IMPRESSION: 6 cm abscess in the medial left buttock adjacent to the perirectal fascia but no identified communication. Assessment & Plan - Plan Summary Plan Summary: pt s/p i ;and d of buttock abscess rising wbc u/a pending still with purulent drainage on pod 3 will plan on operative exploration today with debridement.
[2019-03-04] MEDS: INSULIN LISPRO 100 UNIT/ML 3 ML VIAL SUBCUT SCH ×3 (09:50→17:38)
[2019-03-04] MEDS: ENOXAPARIN SODIUM INJ 30 MG/0.3 ML DISP.SYRIN SUBCUT SCH (09:50)
[2019-03-04] MEDS ORDERED: PROPOFOL INJ 200 MG/20 ML VIAL IV ONE (12:30)
[2019-03-04] MEDS ORDERED: KETAMINE HCL INJ 500 MG/10 ML VIAL ONE (12:30)
[2019-03-04] MEDS ORDERED: FENTANYL CITRATE INJ/PF 100 MCG/2 ML AMPUL ONE (12:30)
[2019-03-04] MEDS ORDERED: BUPIVACAINE HCL 0.5 % INJ/PF 30 ML SDV ONE (12:36)
[2019-03-04] MEDS ORDERED: PROMETHAZINE HCL INJ 25 MG/1 ML VIAL IV PRN ×2 (12:50)
[2019-03-04] MEDS ORDERED: MEPERIDINE HCL/PF INJ 25 MG/1 ML DISP.SYRIN IV PRN (12:50)
[2019-03-04] MEDS ORDERED: DIPHENHYDRAMINE HCL 50 MG/ML VIAL IV PRN (12:50)
[2019-03-04] MEDS ORDERED: FENTANYL CITRATE INJ/PF 100 MCG/2 ML AMPUL IV PRN ×3 (12:50)
--- NOTE | 2019-03-04 13:33 | Operative Report ---
Nonrecallable Operative Report DATE OF SURGERY: 03/04/19 PREOPERATIVE DIAGNOSIS: buttock abscess POSTOPERATIVE DIAGNOSIS: buttock abscess OPERATION: debridement of buttock abscess SURGEON: CJ URIAS ANESTHESIA: GA COMPLICATIONS: none ESTIMATED BLOOD LOSS: 25cc INTRAOPERATIVE FINDINGS: see note PROCEDURE: Was brought to the operating awake alert stable condition placed the operative table in a right lateral decubitus position. She was in she was given LMAC anesthesia. Her graph the left buttock was prepped and draped in usual sterile fashion she had a previous open incision and drainage site to the left of the buttock cleft left of the sacrum 3 cm long made a slightly larger incision elliptical around the previous incision and excised that section of skin deep to that there was a large amount of pus and necrotic tissue that continued to debride laterally and medially noted that the tissue extended up towards the lower back and sacrum. Therefore I needed to extend the incision cephalad approximately 5 to 7 cm and retract that wound to debride all the tissue away from the sacrum and then extended inferiorly and medially towards the top of the coccyx. As we dissected along the top of the coccyx I noted that there is significant amount of fatty tissue on top of the rectum and I inserted my finger into the rectum during the dissection to make sure there was no fistula there was none but the dissection went down to the muscle of the rectum itself. I was careful not to injure the rectal muscle or mucosa with Bovie cautery as I was dissecting the tissue away from the top of the rectum and the rectal muscle. After completed the dissection all tissue was excised wound was irrigated normal saline hemostasis was intact and then was packed with a Betadine soaked Kerlix gauze sterile dressing was applied which completed the procedure estimated blood loss was 25 cc sponge needle counts correct x2 the patient was then transferred back to recovery in stable condition
[2019-03-04] MEDS: NORMAL SALINE 1000 ML 1,000 ML IV PRN (22:25)
[2019-03-05] MEDS: INSULIN LISPRO 100 UNIT/ML 3 ML VIAL SUBCUT SCH ×5 (00:21→21:38)
[2019-03-05] MEDS: PIPERACILLIN SODIUM/TAZOBACTAM 2.25 GM in NORMAL SALINE 50 ML IV SCH ×4 (03:41→21:38)
[2019-03-05] MEDS: KETOROLAC TROMETHAMINE INJ/PF 30 MG/1 ML SDV IV PRN ×3 (04:28→18:50)
--- NOTE | 2019-03-05 08:14 | PDOC PROGRESS REPORT ---
Subjective Progress Note for:: 03/05/19 Reason For Visit: BUTTOCK ABSCESS Physical Exam Vital Signs: Temp Pulse Resp BP Pulse Ox 98.7 F 71 15 104/51 L 98 03/05/19 00:00 03/05/19 00:00 03/05/19 00:00 03/05/19 00:00 03/05/19 00:00 Intake & Output 03/04/19 03/05/19 03/06/19 06:59 06:59 06:59 Intake Total 1920 1800 Output Total 350 575 Balance 1570 1225 Weight 75 kg 78.3 kg General appearance: PRESENT: no acute distress Head exam: PRESENT: normocephalic Eye exam: PRESENT: EOMI Ear exam: PRESENT: TM's normal bilaterally Mouth exam: PRESENT: moist Teeth exam: PRESENT: poor dentation Neck exam: PRESENT: full ROM Respiratory exam: PRESENT: clear to auscultation nena Cardiovascular exam: PRESENT: RRR Pulses: PRESENT: normal radial pulses, normal femoral pulses Vascular exam: PRESENT: normal capillary refill GI/Abdominal exam: PRESENT: soft Rectal exam: PRESENT: other - left buttock wound with clean base, no further necrotic tissue Extremities exam: PRESENT: full ROM Musculoskeletal exam: PRESENT: full ROM Neurological exam: PRESENT: alert, awake, oriented to person, oriented to place Psychiatric exam: PRESENT: appropriate affect Skin exam: PRESENT: dry Results Laboratory Results: 03/02/19 07:33 03/04/19 07:35 WBC 21.4 H RBC 2.75 L Hgb 8.7 L Hct 26.5 L MCV 96 MCH 31.4 MCHC 32.7 RDW 14.3 H Plt Count 252 Impressions: Abdomen CT 03/01/19 15:57 IMPRESSION: 6 cm abscess in the medial left buttock adjacent to the perirectal fascia but no identified communication. Assessment & Plan - Plan Summary Plan Summary: s/p debridement of left buttock abscess wound much cleaner and dyer now, with no further necrotic tissue labs still peniding from this am will cont iv abx for now wet to dry dressing changes consider vac in 2-3 days.
[2019-03-05 08:18] LABS: HEMATOCRIT 23.8 % (36.0-47.0); MEAN CORPUSCULAR HEMOGLOBIN 31.8 pg (27.0-33.4); MEAN CORPUSCULAR HGB CONC 33.5 g/dL (32.0-36.0); MEAN CORPUSCULAR VOLUME 95 fl (80-97); PLATELET COUNT 243 10^3/uL (150-450); RED CELL DISTRIBUTION WIDTH 13.9 % (11.5-14.0)
[2019-03-05 09:03] LABS: ABSOLUTE MONOCYTES # (MANUAL) 0.3 10^3/uL (0.1-1.4); BASOPHILS % (MANUAL) 0 % (0-2); EOSINOPHILS % (MANUAL) 0 % (0-6); LYMPHOCYTES % (MANUAL) 19 % (13-45); MONOCYTES % (MANUAL) 2 % (3-13); RBC MORPHOLOGY COMMENT NORMO-CYTIC/CHROMIC; SEGMENTED NEUTROPHILS % (MAN) 79 % (42-78); TOTAL CELLS COUNTED 100
[2019-03-05 09:04] LABS: PLATELET CLUMPS PRESENT; PLATELET COMMENT ADEQUATE
[2019-03-05] MEDS: ENOXAPARIN SODIUM INJ 30 MG/0.3 ML DISP.SYRIN SUBCUT SCH (11:04)
[2019-03-05] MEDS: MORPHINE SULFATE 10 MG/ML INJ IV PRN ×2 (14:01→19:55)
--- NOTE | 2019-03-06 00:57 | EKG REPORT ---
SEVERITY:- NORMAL ECG - SINUS RHYTHM : Confirmed by: Merna Jackson 06-Mar-2019 00:55:42
[2019-03-06] MEDS: MORPHINE SULFATE 10 MG/ML INJ IV PRN ×4 (02:38→20:11)
[2019-03-06] MEDS: PIPERACILLIN SODIUM/TAZOBACTAM 2.25 GM in NORMAL SALINE 50 ML IV SCH ×4 (02:38→21:24)
[2019-03-06] MEDS: NORMAL SALINE 1000 ML 1,000 ML IV PRN (02:40)
[2019-03-06 05:52] LABS: ABSOLUTE BASOPHILS # (AUTO) 0.1 10^3/uL (0.0-0.2); ABSOLUTE EOSINOPHILS # (AUTO) 0.3 10^3/uL (0.0-0.6); ABSOLUTE LYMPHOCYTES (AUTO) 0.8 10^3/uL (0.5-4.7); ABSOLUTE MONOCYTES (AUTO) 1.4 10^3/uL (0.1-1.4); ABSOLUTE NEUT (AUTO) 9.6 10^3/uL (1.7-8.2); BASOPHILS % (AUTO) 0.5 % (0-2); EOSINOPHILS % (AUTO) 2.5 % (0-6); HEMATOCRIT 23.4 % (36.0-47.0); LYMPHOCYTES % (AUTO) 6.7 % (13-45); MEAN CORPUSCULAR HGB CONC 33.4 g/dL (32.0-36.0); MEAN CORPUSCULAR VOLUME 96 fl (80-97); MONOCYTES % (AUTO) 11.6 % (3-13); PLATELET COUNT 257 10^3/uL (150-450); RED BLOOD COUNT 2.44 10^6/uL (3.72-5.28); RED CELL DISTRIBUTION WIDTH 14.1 % (11.5-14.0); SEGMENTED NEUTROPHILS % (AUTO) 78.7 % (42-78); TOTAL CELLS COUNTED % (AUTO) 100 %; WHITE BLOOD COUNT 12.2 10^3/uL (4.0-10.5)
[2019-03-06 05:57] LABS: HEMOGLOBIN 7.8 g/dL (12.0-15.5)
[2019-03-06] MEDS: INSULIN LISPRO 100 UNIT/ML 3 ML VIAL SUBCUT SCH ×4 (07:47→21:24)
[2019-03-06] MEDS: KETOROLAC TROMETHAMINE INJ/PF 30 MG/1 ML SDV IV PRN ×2 (10:18→17:34)
--- NOTE | 2019-03-06 10:27 | PDOC PROGRESS REPORT ---
Subjective Progress Note for:: 03/06/19 Reason For Visit: BUTTOCK ABSCESS Physical Exam Vital Signs: Temp Pulse Resp BP Pulse Ox 97.4 F 74 20 146/65 H 100 03/06/19 07:44 03/06/19 07:44 03/06/19 07:44 03/06/19 07:44 03/06/19 07:44 Intake & Output 03/05/19 03/06/19 03/07/19 06:59 06:59 06:59 Intake Total 1800 2463 Output Total 575 1850 Balance 1225 613 Weight 78.3 kg 75.6 kg Results Laboratory Results: 03/06/19 05:23 03/02/19 07:33 03/06/19 05:23 WBC 12.2 H RBC 2.44 L Hgb 7.8 L Hct 23.4 L MCV 96 MCH 32.0 MCHC 33.4 RDW 14.1 H Plt Count 257 Seg Neutrophils % 78.7 H 03/04/19 03:25 Catheterized Urine Urine Culture - Final NO GROWTH 2 DAYS Impressions: Abdomen CT 03/01/19 15:57 IMPRESSION: 6 cm abscess in the medial left buttock adjacent to the perirectal fascia but no identified communication. Assessment & Plan - Diagnosis (1) Perianal abscess Is this a current diagnosis for this admission?: Yes - Plan Summary Plan Summary: This is a 73-year-old female status post incision and drainage of a large buttock abscess. The wound appears clean today. The dressing was changed by me at the bedside. The patient complains of pain, but is otherwise stable. Discharge planning. Damp to dry dressing changes twice daily. PT/OT.
[2019-03-06] MEDS: ENOXAPARIN SODIUM INJ 30 MG/0.3 ML DISP.SYRIN SUBCUT SCH (10:47)
[2019-03-06] MEDS ORDERED: PHENYLEPHRINE HCL INJ/PF 10 MG/1 ML SDV ONE (12:34)
[2019-03-06] MEDS: INSULIN GLARGINE,HUM.REC.ANLOG 1,000 UNIT/10 ML VIAL SUBCUT SCH (18:35)
[2019-03-06] MEDS: CARVEDILOL 12.5 MG TABLET PO SCH (20:12)
[2019-03-06] MEDS: ATORVASTATIN CALCIUM 10 MG TABLET PO SCH (21:24)
[2019-03-07] MEDS: PIPERACILLIN SODIUM/TAZOBACTAM 2.25 GM in NORMAL SALINE 50 ML IV SCH ×4 (02:55→22:00)
[2019-03-07] MEDS: MORPHINE SULFATE 10 MG/ML INJ IV PRN ×4 (02:55→22:20)
[2019-03-07] MEDS: CARVEDILOL 12.5 MG TABLET PO SCH ×2 (05:37→19:46)
[2019-03-07] MEDS: INSULIN LISPRO 100 UNIT/ML 3 ML VIAL SUBCUT SCH ×4 (08:53→22:22)
[2019-03-07 09:11] LABS: HEMATOCRIT 23.3 % (36.0-47.0); MEAN CORPUSCULAR HEMOGLOBIN 32.5 pg (27.0-33.4); MEAN CORPUSCULAR VOLUME 96 fl (80-97); PLATELET COUNT 281 10^3/uL (150-450); RED BLOOD COUNT 2.43 10^6/uL (3.72-5.28); RED CELL DISTRIBUTION WIDTH 14.7 % (11.5-14.0); WHITE BLOOD COUNT 8.5 10^3/uL (4.0-10.5)
[2019-03-07 09:25] LABS: HEMOGLOBIN 7.9 g/dL (12.0-15.5)
[2019-03-07 09:42] LABS: ABSOLUTE LYMPHOCYTES# (MANUAL) 0.9 10^3/uL (0.5-4.7); ABSOLUTE MONOCYTES # (MANUAL) 1.3 10^3/uL (0.1-1.4); BASOPHILS % (MANUAL) 0 % (0-2); EOSINOPHILS % (MANUAL) 8 % (0-6); LYMPHOCYTES % (MANUAL) 11 % (13-45); MONOCYTES % (MANUAL) 15 % (3-13); SEGMENTED NEUTROPHILS % (MAN) 66 % (42-78); TOTAL CELLS COUNTED 100
[2019-03-07 09:44] LABS: ANISOCYTOSIS SLIGHT; OVALOCYTES SLIGHT; PLATELET COMMENT ADEQUATE; POLYCHROMASIA SLIGHT
[2019-03-07] MEDS ORDERED: (PENDING PHARMACY ID) (Lisinopril/Hydrochlorothiazide [Lisinopril-Hctz 20-12.5 Mg Tab] 1 E PO SCH (10:00)
[2019-03-07] MEDS: ASPIRIN 81 MG TABLET, ENT COATED PO SCH (10:13)
[2019-03-07] MEDS: HYDROCHLOROTHIAZIDE 12.5 MG TABLET PO SCH (10:14)
[2019-03-07] MEDS: LISINOPRIL 10 MG TABLET PO SCH (10:15)
[2019-03-07] MEDS: ENOXAPARIN SODIUM INJ 30 MG/0.3 ML DISP.SYRIN SUBCUT SCH (10:16)
[2019-03-07] MEDS: KETOROLAC TROMETHAMINE INJ/PF 30 MG/1 ML SDV IV PRN (11:16)
--- NOTE | 2019-03-07 12:57 | PDOC PROGRESS REPORT ---
Subjective Subjective:: Weak but otherwise no complaints Reason For Visit: BUTTOCK ABSCESS Physical Exam Vital Signs: Temp Pulse Resp BP Pulse Ox 98.2 F 77 15 145/72 H 98 03/07/19 07:27 03/07/19 07:27 03/07/19 07:27 03/07/19 07:27 03/07/19 07:27 Intake & Output 03/06/19 03/07/19 03/08/19 06:59 06:59 06:59 Intake Total 2463 672 Output Total 1850 1900 Balance 613 -1228 Weight 75.6 kg 76.2 kg General appearance: PRESENT: no acute distress, cooperative Respiratory exam: PRESENT: clear to auscultation nena Cardiovascular exam: PRESENT: RRR Skin exam: PRESENT: other - Buttocks wound appears very clean with no undrained sinus tracts nor surrounding erythema nor necrotic tissue. Results Laboratory Results: 03/07/19 07:44 03/02/19 07:33 03/07/19 07:44 WBC 8.5 RBC 2.43 L Hgb 7.9 L Hct 23.3 L MCV 96 MCH 32.5 MCHC 34.0 RDW 14.7 H Plt Count 281 Seg Neutrophils % Not Reportable 03/01/19 22:27 Blood Blood Culture - Final NO GROWTH IN 5 DAYS 03/01/19 20:28 Blood Blood Culture - Final NO GROWTH IN 5 DAYS Impressions: Abdomen CT 03/01/19 15:57 IMPRESSION: 6 cm abscess in the medial left buttock adjacent to the perirectal fascia but no identified communication. Assessment & Plan - Diagnosis (1) Gluteal abscess Is this a current diagnosis for this admission?: Yes Plan: Appears high enough that we may be able to apply a wound VAC. Will consult home health. (2) Anemia Is this a current diagnosis for this admission?: Yes Plan: Chronic anemia.Would benefit from transfusion to aid in recovery. d/w pt risks and benefits and pt agrees to transfusion. Endoscopic workup as an outpt after wound healing advised.
[2019-03-07] MEDS: INSULIN GLARGINE,HUM.REC.ANLOG 1,000 UNIT/10 ML VIAL SUBCUT SCH (18:19)
[2019-03-07] MEDS: ATORVASTATIN CALCIUM 10 MG TABLET PO SCH (22:22)
[2019-03-08] MEDS: HYDROCODONE/ACETAMINOPHEN 5-325 MG TABLET PO PRN ×3 (01:03→20:54)
[2019-03-08 02:14] LABS: HEMATOCRIT 27.2 % (36.0-47.0); HEMOGLOBIN 9.1 g/dL (12.0-15.5); MEAN CORPUSCULAR HEMOGLOBIN 31.5 pg (27.0-33.4); MEAN CORPUSCULAR HGB CONC 33.6 g/dL (32.0-36.0); MEAN CORPUSCULAR VOLUME 94 fl (80-97); PLATELET COUNT 287 10^3/uL (150-450); RED CELL DISTRIBUTION WIDTH 15.4 % (11.5-14.0); WHITE BLOOD COUNT 9.5 10^3/uL (4.0-10.5)
[2019-03-08 02:31] LABS: ABSOLUTE LYMPHOCYTES# (MANUAL) 0.8 10^3/uL (0.5-4.7); ABSOLUTE MONOCYTES # (MANUAL) 1.1 10^3/uL (0.1-1.4); ANISOCYTOSIS SLIGHT; BAND NEUTROPHILS % (MANUAL) 3 % (3-5); BASOPHILS % (MANUAL) 0 % (0-2); EOSINOPHILS % (MANUAL) 5 % (0-6); LYMPHOCYTES % (MANUAL) 7 % (13-45); MONOCYTES % (MANUAL) 12 % (3-13); NUCLEATED RED BLOOD CELLS 1 /100 WBC (0); SEGMENTED NEUTROPHILS % (MAN) 72 % (42-78); TOTAL CELLS COUNTED 100
[2019-03-08 02:32] LABS: PLATELET COMMENT ADEQUATE
[2019-03-08] MEDS: PIPERACILLIN SODIUM/TAZOBACTAM 2.25 GM in NORMAL SALINE 50 ML IV SCH ×4 (03:15→20:26)
[2019-03-08] MEDS: CARVEDILOL 12.5 MG TABLET PO SCH ×2 (05:38→19:27)
[2019-03-08] MEDS: INSULIN LISPRO 100 UNIT/ML 3 ML VIAL SUBCUT SCH ×4 (07:51→21:58)
--- NOTE | 2019-03-08 09:13 | PDOC PROGRESS REPORT ---
Subjective Progress Note for:: 03/08/19 Subjective:: No c/o, comfortable Reason For Visit: BUTTOCK ABSCESS Physical Exam Vital Signs: Temp Pulse Resp BP Pulse Ox 98.1 F 73 16 151/71 H 97 03/08/19 07:57 03/08/19 07:57 03/08/19 07:57 03/08/19 07:57 03/08/19 07:57 Intake & Output 03/07/19 03/08/19 03/09/19 06:59 06:59 06:59 Intake Total 672 680 Output Total 1900 925 Balance -1228 -245 Weight 76.2 kg 83.9 kg General appearance: PRESENT: no acute distress Rectal exam: PRESENT: other - perineal wound covered with WoundVac Gentrourinary exam: PRESENT: indwelling catheter Results Laboratory Results: 03/08/19 02:02 03/02/19 07:33 03/07/19 03/07/19 03/08/19 07:44 13:00 02:02 WBC 8.5 9.5 RBC 2.43 L 2.90 L Hgb 7.9 L 9.1 L Hct 23.3 L 27.2 L MCV 96 94 MCH 32.5 31.5 MCHC 34.0 33.6 RDW 14.7 H 15.4 H Plt Count 281 287 Seg Neutrophils % Not Reportable Not Reportable Blood Type O POSITIVE Antibody Screen NEGATIVE Impressions: Abdomen CT 03/01/19 15:57 IMPRESSION: 6 cm abscess in the medial left buttock adjacent to the perirectal fascia but no identified communication. Assessment & Plan - Diagnosis (1) Gluteal abscess Is this a current diagnosis for this admission?: Yes - Plan Summary Plan Summary: Assessment: Status post debridement of left buttock abscess Wound well healing and covered with wound VAC Cas[place] catheter in place Patient occasionally incontinent with stools Patient anemia is improved with fluid administration of 1 unit of blood yesterday with a hemoglobin hematocrit probably increased to 9.1 and 27.1, respectively Plan: Discharge home today Home health to arrange for wound VAC placement 3 times a week at home Remove the Casillas catheter Follow-up in the surgery office in 2 weeks Follow-up with primary care physician in 2 weeks Patient will need a colonoscopy in 3 to 4 months after healing of her gluteal abscess to identify the cause of her anemia Continue home meds
[2019-03-08] MEDS: ASPIRIN 81 MG TABLET, ENT COATED PO SCH (09:27)
[2019-03-08] MEDS: HYDROCHLOROTHIAZIDE 12.5 MG TABLET PO SCH (09:27)
[2019-03-08] MEDS: LISINOPRIL 10 MG TABLET PO SCH (09:27)
[2019-03-08] MEDS: ENOXAPARIN SODIUM INJ 30 MG/0.3 ML DISP.SYRIN SUBCUT SCH (09:27)
--- NOTE | 2019-03-08 09:28 | Progress Note ---
Provider Note Provider Note: Discharge summary Patient was admitted on March 01, 2019, a CAT scan of the pelvis was done revealing a left gluteal abscess. She underwent to surgery twice on March 02 and March 07 for debridement of a left gluteal abscess. A wound VAC was placed; her general conditions progressively improved. However, a Casillas catheter had to be placed during the hospitalization to present prevent soilage of the wound due to urinary incontinence. The patient hemoglobin hematocrit also dropped her during her hospitalization; she was given 1 unit of blood the day prior to discharge with appropriate improvement of hemoglobin hematocrit. On the day of discharge, Casillas catheter was removed, home health was consulted to arrange for wound VAC replacement at home 3 times a week, the patient was opted to resume the home medications, activity as tolerated, diet as tolerated as per her diabetes, follow-up in surgery clinic in 2 weeks to see MELA Morales, follow-up with her primary care physician in 2 to 3 weeks, patient to have colonoscopy in 2 to 4 months once the perianal abscess is healed to identify the source of the anemia.
[2019-03-08] MEDS: INSULIN GLARGINE,HUM.REC.ANLOG 1,000 UNIT/10 ML VIAL SUBCUT SCH (17:05)
[2019-03-08 19:12] LABS: C DIFFICILE GDH NEGATIVE (NEGATIVE)
[2019-03-08] MEDS: ATORVASTATIN CALCIUM 10 MG TABLET PO SCH (21:58)
[2019-03-09] MEDS: PIPERACILLIN SODIUM/TAZOBACTAM 2.25 GM in NORMAL SALINE 50 ML IV SCH ×2 (03:11→09:20)
[2019-03-09] MEDS: CARVEDILOL 12.5 MG TABLET PO SCH (05:51)
[2019-03-09 06:59] LABS: ABSOLUTE EOSINOPHILS # (AUTO) 0.1 10^3/uL (0.0-0.6); ABSOLUTE LYMPHOCYTES (AUTO) 0.9 10^3/uL (0.5-4.7); ABSOLUTE MONOCYTES (AUTO) 0.8 10^3/uL (0.1-1.4); ABSOLUTE NEUT (AUTO) 8.8 10^3/uL (1.7-8.2); BASOPHILS % (AUTO) 0.2 % (0-2); EOSINOPHILS % (AUTO) 1.1 % (0-6); HEMATOCRIT 27.4 % (36.0-47.0); HEMOGLOBIN 9.3 g/dL (12.0-15.5); LYMPHOCYTES % (AUTO) 8.6 % (13-45); MEAN CORPUSCULAR HEMOGLOBIN 31.6 pg (27.0-33.4); MEAN CORPUSCULAR VOLUME 93 fl (80-97); MONOCYTES % (AUTO) 7.9 % (3-13); PLATELET COUNT 307 10^3/uL (150-450); RED BLOOD COUNT 2.94 10^6/uL (3.72-5.28); RED CELL DISTRIBUTION WIDTH 15.8 % (11.5-14.0); SEGMENTED NEUTROPHILS % (AUTO) 82.2 % (42-78); TOTAL CELLS COUNTED % (AUTO) 100 %; WHITE BLOOD COUNT 10.7 10^3/uL (4.0-10.5)
[2019-03-09 07:25] LABS: ANION GAP 6 (5-19); BLOOD UREA NITROGEN 18 mg/dL (7-20); CALCIUM 8.8 mg/dL (8.4-10.2); CARBON DIOXIDE 24 mmol/L (22-30); CHLORIDE 109 mmol/L (98-107); GLUCOSE 134 mg/dL (75-110); POTASSIUM 4.7 mmol/L (3.6-5.0)
[2019-03-09] MEDS ORDERED: INFLUENZA QUAD (6MOS+) 2019-20 VAC 0.5 ML SYR IM ONE (08:00)
[2019-03-09] MEDS: INSULIN LISPRO 100 UNIT/ML 3 ML VIAL SUBCUT SCH ×2 (08:53→12:18)
[2019-03-09] MEDS ORDERED: ONDANSETRON HCL INJ/PF 4 MG/2 ML SDV IV PRN (09:00)
[2019-03-09] MEDS: HYDROCODONE/ACETAMINOPHEN 5-325 MG TABLET PO PRN ×2 (09:19→15:17)
[2019-03-09] MEDS: ASPIRIN 81 MG TABLET, ENT COATED PO SCH (09:19)
[2019-03-09] MEDS: HYDROCHLOROTHIAZIDE 12.5 MG TABLET PO SCH (09:20)
[2019-03-09] MEDS: ENOXAPARIN SODIUM INJ 30 MG/0.3 ML DISP.SYRIN SUBCUT SCH (09:20)
[2019-03-09] MEDS: LISINOPRIL 10 MG TABLET PO SCH (09:21)
--- NOTE | 2019-03-09 09:21 | PDOC PROGRESS REPORT ---
Subjective Progress Note for:: 03/09/19 Subjective:: Feels better. Diarrhea resolved. Reason For Visit: BUTTOCK ABSCESS Physical Exam Vital Signs: Temp Pulse Resp BP Pulse Ox 98.6 F 82 18 175/69 H 98 03/09/19 07:50 03/09/19 07:50 03/09/19 07:50 03/09/19 07:50 03/09/19 07:50 Intake & Output 03/08/19 03/09/19 03/10/19 06:59 06:59 06:59 Intake Total 680 788 Output Total 925 300 Balance -245 488 Weight 83.9 kg 85.5 kg General appearance: PRESENT: no acute distress, cooperative Respiratory exam: PRESENT: clear to auscultation nena Cardiovascular exam: PRESENT: RRR Skin exam: PRESENT: other - Wound is clean with no drainage and no necrotic tissue. Results Laboratory Results: 03/09/19 06:32 03/09/19 06:32 03/09/19 03/09/19 06:32 06:32 WBC 10.7 H RBC 2.94 L Hgb 9.3 L Hct 27.4 L MCV 93 MCH 31.6 MCHC 34.0 RDW 15.8 H Plt Count 307 Seg Neutrophils % 82.2 H Sodium 138.7 Potassium 4.7 Chloride 109 H Carbon Dioxide 24 Anion Gap 6 BUN 18 Creatinine 1.11 Est GFR ( Amer) 58 L Glucose 134 H Calcium 8.8 03/04/19 13:10 Buttocks - Left Side Abscess Gram Stain - Final 03/04/19 13:10 Buttocks - Left Side Abscess Wound Culture - Final No Aerobic Organisms Clostridium Sp.not Perfringens Impressions: Abdomen CT 03/01/19 15:57 IMPRESSION: 6 cm abscess in the medial left buttock adjacent to the perirectal fascia but no identified communication. Assessment & Plan - Diagnosis (1) Gluteal abscess Is this a current diagnosis for this admission?: Yes Plan: Wound looks very clean. There was some concern about aspiration of stool into the wound with a wound VAC and she was switched over to normal saline wet-to-dry dressings. We will plan to discharge patient home with home health for dressing changes with follow-up at wound care clinic. (2) Anemia Is this a current diagnosis for this admission?: Yes Plan: Will refer to gastroenterology for endoscopic work-up. Hematocrit appropriately came up with her transfusion. There is no evidence of ongoing blood loss. (3) Diarrhea Is this a current diagnosis for this admission?: Yes Plan: Resolved. C. difficile was negative.
--- NOTE | 2019-03-09 09:36 | PDOC DISCHARGE SUMMARY ---
General - Admit/Disc Date/PCP Admission Date/Primary Care Provider: 03/05/19 14:57 MORENA WAYNE MD Discharge Date: 03/09/19 - Discharge Diagnosis Final Diagnosis: Perianal abscess, buttocks abscess. Anemia. - Assessment Summary: Patient underwent initial incision and drainage of perianal abscess by Dr. Geiger on March 02, 2019. Patient was noted postoperatively with rising WBC with purulent drainage with some necrotic fat and therefore patient subsequently underwent excisional debridement of buttocks abscess by Dr. Zuniga on March 04, 2019. Patient did well postoperatively. The wound appeared clean. She was noted with anemia and in consideration of her age and generalized weakness, she was transfused 1 unit of packed RBC. She responded well with appropriate increase of her hematocrit from 23 to 27%. She had better mobility. She is now been discharged home in good condition. Home health was arranged for daily dressing changes with normal saline wet-to-dry dressings to her wound. She will follow-up at the wound care clinic next week. Outpatient consult was made with gastroenterology in the next few weeks for evaluation of her anemia. She is encouraged to stay active. May resume her home medications. No additional medications. - Additional Information Resuscitation Status: Full Code Discharge Diet: As Tolerated Discharge Activity: Activity As Tolerated Home Medications: Arginine [L-Arginine 500 mg Caps] 1 cap PO DAILY 03/02/19 Aspirin [Ecotrin] 81 mg PO DAILY 03/02/19 Atorvastatin Calcium [Lipitor 10 mg Tablet] 10 mg PO QHS 03/02/19 Carvedilol [Coreg 12.5 mg Tablet] 12.5 mg PO BID@0600,1900 03/02/19 Cholecalciferol (Vitamin D3) [Vitamin D3 2000 unit Tablet] 2,000 unit PO DAILY 03/02/19 Insulin Glargine,Hum.rec.anlog [Lantus Insulin 100 Unit/1 ml 10 ml] 15 unit SUBCUT QPM 03/02/19 Lisinopril/Hydrochlorothiazide [Lisinopril-Hctz 20-12.5 mg Tab] 1 each PO DAILY 03/02/19 History of Present Illiness History of Present Illness: VIVI WATTS is a 73 year old female Physical Exam Vital Signs: Temp Pulse Resp BP Pulse Ox 98.6 F 82 18 175/69 H 98 03/09/19 07:50 03/09/19 07:50 03/09/19 07:50 03/09/19 07:50 03/09/19 07:50 Intake & Output 03/08/19 03/09/19 03/10/19 06:59 06:59 06:59 Intake Total 680 788 Output Total 925 300 Balance -037 488 Weight 83.9 kg 85.5 kg Results Laboratory Results: WBC 10.7 10^3/uL (4.0-10.5) H 03/09/19 06:32 RBC 2.94 10^6/uL (3.72-5.28) L 03/09/19 06:32 Hgb 9.3 g/dL (12.0-15.5) L 03/09/19 06:32 Hct 27.4 % (36.0-47.0) L 03/09/19 06:32 MCV 93 fl (80-97) 03/09/19 06:32 MCH 31.6 pg (27.0-33.4) 03/09/19 06:32 MCHC 34.0 g/dL (32.0-36.0) 03/09/19 06:32 RDW 15.8 % (11.5-14.0) H 03/09/19 06:32 Plt Count 307 10^3/uL (150-450) 03/09/19 06:32 Lymph % (Auto) 8.6 % (13-45) L 03/09/19 06:32 Henderson % (Auto) 7.9 % (3-13) 03/09/19 06:32 Eos % (Auto) 1.1 % (0-6) 03/09/19 06:32 Baso % (Auto) 0.2 % (0-2) 03/09/19 06:32 Absolute Neuts (auto) 8.8 10^3/uL (1.7-8.2) H 03/09/19 06:32 Absolute Lymphs (auto) 0.9 10^3/uL (0.5-4.7) 03/09/19 06:32 Absolute Monos (auto) 0.8 10^3/uL (0.1-1.4) 03/09/19 06:32 Absolute Eos (auto) 0.1 10^3/uL (0.0-0.6) 03/09/19 06:32 Absolute Basos (auto) 0.0 10^3/uL (0.0-0.2) 03/09/19 06:32 Total Counted 100 03/08/19 02:02 Seg Neutrophils % 82.2 % (42-78) H 03/09/19 06:32 Seg Neuts % (Manual) 72 % (42-78) 03/08/19 02:02 Band Neutrophils % 3 % (3-5) 03/08/19 02:02 Lymphocytes % (Manual) 7 % (13-45) L 03/08/19 02:02 Atypical Lymphs % 1 % (0) 03/08/19 02:02 Monocytes % (Manual) 12 % (3-13) 03/08/19 02:02 Eosinophils % (Manual) 5 % (0-6) 03/08/19 02:02 Basophils % (Manual) 0 % (0-2) 03/08/19 02:02 Abs Neuts (Manual) 7.1 10^3/uL (1.7-8.2) 03/08/19 02:02 Abs Lymphs (Manual) 0.8 10^3/uL (0.5-4.7) 03/08/19 02:02 Abs Monocytes (Manual) 1.1 10^3/uL (0.1-1.4) 03/08/19 02:02 Absolute Eos (Manual) 0.5 10^3/uL (0.0-0.6) 03/08/19 02:02 Abs Basophils (Manual) 0.0 10^3/uL (0.0-0.2) 03/08/19 02:02 Nucleated RBCs 1 /100 WBC (0) 03/08/19 02:02 Smudge Cells PRESENT 03/04/19 07:35 Toxic Granulation SLIGHT 03/03/19 12:30 Toxic Vacuolation PRESENT 03/04/19 07:35 Clumped Platelets PRESENT 03/05/19 07:16 Large Platelets PRESENT 03/04/19 07:35 Giant Platelets PRESENT 03/02/19 07:33 Platelet Comment ADEQUATE 03/08/19 02:02 Polychromasia SLIGHT 03/07/19 07:44 Poikilocytosis SLIGHT 03/03/19 12:30 Anisocytosis SLIGHT 03/08/19 02:02 Ovalocytes SLIGHT 03/07/19 07:44 [place] Cells 1+ 03/04/19 07:35 Rouleaux SLIGHT 03/03/19 12:30 RBC Morph Comment NORMO-CYTIC/CHROMIC 03/05/19 07:16 Sodium 138.7 mmol/L (137-145) 03/09/19 06:32 Potassium 4.7 mmol/L (3.6-5.0) 03/09/19 06:32 Chloride 109 mmol/L (98-107) H 03/09/19 06:32 Carbon Dioxide 24 mmol/L (22-30) 03/09/19 06:32 Anion Gap 6 (5-19) 03/09/19 06:32 BUN 18 mg/dL (7-20) 03/09/19 06:32 Creatinine 1.11 mg/dL (0.52-1.25) 03/09/19 06:32 Est GFR ( Amer) 58 (>60) L 03/09/19 06:32 Est GFR (MDRD) Non-Af 48 (>60) L 03/09/19 06:32 Glucose 134 mg/dL (75-110) H 03/09/19 06:32 POC Glucose 132 mg/dL (70-110) H 03/09/19 08:02 Lactic Acid 1.6 mmol/L (0.7-2.1) 03/01/19 17:20 Calcium 8.8 mg/dL (8.4-10.2) 03/09/19 06:32 Total Bilirubin 1.4 mg/dL (0.2-1.3) H 03/01/19 14:30 Direct Bilirubin 0.5 mg/dL (0.0-0.4) H 03/01/19 14:30 Neonat Total Bilirubin Not Reportable 03/01/19 14:30 Neonat Direct Bilirubin Not Reportable 03/01/19 14:30 Neonat Indirect Bili Not Reportable 03/01/19 14:30 AST 37 U/L (14-36) H 03/01/19 14:30 ALT 21 U/L (<35) 03/01/19 14:30 Alkaline Phosphatase 115 U/L (38-126) 03/01/19 14:30 Total Protein 7.5 g/dL (6.3-8.2) 03/01/19 14:30 Albumin 3.4 g/dL (3.5-5.0) L 03/01/19 14:30 Urine Color YELLOW 03/04/19 03:25 Urine Appearance SLIGHTLY-CLOUDY 03/04/19 03:25 Urine pH 5.0 (5.0-9.0) 03/04/19 03:25 Ur Specific [place] 1.032 03/04/19 03:25 Urine Protein NEGATIVE mg/dL (NEGATIVE) 03/04/19 03:25 Urine Glucose (UA) NEGATIVE mg/dL (NEGATIVE) 03/04/19 03:25 Urine Ketones NEGATIVE mg/dL (NEGATIVE) 03/04/19 03:25 Urine Blood NEGATIVE (NEGATIVE) 03/04/19 03:25 Urine Nitrite NEGATIVE (NEGATIVE) 03/04/19 03:25 Urine Bilirubin NEGATIVE (NEGATIVE) 03/04/19 03:25 Urine Urobilinogen 2.0 mg/dL (<2.0) H 03/04/19 03:25 Ur Leukocyte Esterase NEGATIVE (NEGATIVE) 03/04/19 03:25 Urine WBC (Auto) 3 /HPF 03/04/19 03:25 Urine RBC (Auto) 1 /HPF 03/04/19 03:25 Squamous Epi Cells Auto <1 /HPF 03/04/19 03:25 Urine Ascorbic Acid NEGATIVE (NEGATIVE) 03/04/19 03:25 Stl C. Difficile GDH Ag NEGATIVE (NEGATIVE) 03/08/19 14:00 Stl C.difficile Tox A&B NEGATIVE (NEGATIVE) 03/08/19 14:00 Blood Type O POSITIVE 03/07/19 13:00 Blood Type Confirm O POSITIVE 03/07/19 13:07 Antibody Screen NEGATIVE 03/07/19 13:00 Crossmatch See Detail 03/07/19 13:00 Impressions: Abdomen CT 03/01/19 15:57 IMPRESSION: 6 cm abscess in the medial left buttock adjacent to the perirectal fascia but no identified communication.
[2019-03-09 12:55] VITALS: BP 145/85
== END 2019-03-09 15:31 | disposition home health service (06) | DRG 572 ==
LOC: ER 12:35 → OBSVTOIN 23:27 → EH 23:27 → INTOOBSV 23:27 → 5 03-02 08:44 → OBSVTOIN 03-05 14:57
PROVIDERS: ADMIT Surgery; ATTEND Surgery
PROC: 0H98XZZ Drainage of Buttock Skin, External Approach (ICD-10-PCS; 2019-03-02)
PROC: 0JB90ZZ Excision of Buttock Subcutaneous Tissue and Fascia, Open Approach (ICD-10-PCS; principal; 2019-03-04 12:30)
PROC: 30233N1 Transfusion of Nonautologous Red Blood Cells into Peripheral Vein, Percutaneous Approach (ICD-10-PCS; 2019-03-07)
DX: L02.31 Cutaneous abscess of buttock (principal); I10 Essential (primary) hypertension; E11.8 Type 2 diabetes mellitus with unspecified complications; D64.9 Anemia, unspecified; R19.7 Diarrhea, unspecified; Z79.84 Long term (current) use of oral hypoglycemic drugs; Z79.82 Long term (current) use of aspirin; Z79.899 Other long term (current) drug therapy
CPT/HCPCS: 00300; 36415; 36430; 74160; 80048; 80053; 81001; 82962; 83605; 85025; 86850; 86900; 86901; 86920; 87040; 87070; 87075; 87077; 87086; 87205; 87324; 87449; 93005; 93010; 96361; 96365; 96366; 96367; 96375; 99284; G0378; J1650; J1815; J1885; J2270; J2370; J2405; J2543; J2704; J3010; J3490; J7030; J7040; J7050; P9016

== ENCOUNTER 2019-03-22 21:01 | Emergency (ER) | payer MEDICARE ==
--- NOTE | 2019-03-22 21:27 | ER Document Report ---
ED General - General Stated Complaint: BLEEDING Time Seen by Provider: 03/22/19 21:06 Primary Care Provider: MORENA WAYNE MD [Primary Care Provider] - Follow up as needed LUKASZ QUINTANILLA MD [ACTIVE STAFF] - Follow up in 3-5 days Notes: Patient is a 73-year-old female who presents the emergency department with a chief complaint of bleeding from her incision site. Patient had a buttock abscess removal. She had no problems this past week. She had a follow-up visit yesterday and everything was normal. Patient was out and about all day and ended up having some bleeding. The home health nurse came out to visit her and she ended up having her wound repacked. The bleeding had stopped and then the bleeding started again shortly after. Patient denies any dizziness, lightheadedness, or any other symptoms at this time. TRAVEL OUTSIDE OF THE [place] IN LAST 30 DAYS: No - Related Data Allergies/Adverse Reactions: No Known Allergies Allergy (Verified 03/01/19 13:05) Past Medical History - General Information source: Patient - Social History Smoking Status: Never Smoker Family History: Reviewed & Not Pertinent, CAD, DM, Hypertension - Past Medical History Cardiac Medical History: Reports: Hx Hypertension - white coat syndrome Denies: Hx Heart Attack Pulmonary Medical History: Denies: Hx Asthma Neurological Medical History: Denies: Hx Cerebrovascular Accident, Hx Seizures Endocrine Medical History: Reports: Hx Diabetes Mellitus Type 2 Renal/ Medical History: Denies: Hx Peritoneal Dialysis Psychiatric Medical History: Denies: Hx Depression Review of Systems - Review of Systems Notes: REVIEW OF SYSTEMS: CONSTITUTIONAL : Denies recent illness. Denies recent unintentional weight loss. Denies fever, chills, or sweats. EENT: Denies eye, ear, throat, or mouth pain, discharge, or symptoms. Denies nasal or sinus congestion. CARDIOVASCULAR: Denies chest pain. RESPIRATORY: Denies shortness of breath, cough, congestion, difficulty breathing, or wheezing. GASTROINTESTINAL: Denies nausea, vomiting, and diarrhea. Denies abdominal pain. Denies constipation. GENITOURINARY: Denies difficulty urinating, burning, blood in urine, urgency or frequency. MUSCULOSKELETAL: Denies neck and back pain. Denies joint pain or swelling. SKIN: See HPI. HEMATOLOGIC : See HPI. LYMPHATIC: Denies swollen, painful, enlarged glands. NEUROLOGICAL: Denies no numbness or tingling denies weakness. Denies headache. Denies altered mental status. Denies alteration in speech. PSYCHIATRIC: Denies stress, anxiety, alteration in sleep patterns, or depression. All other systems reviewed and negative. Physical Exam - Vital signs Vitals: Temp Pulse Resp BP Pulse Ox 98.7 F 94 18 115/61 96 03/22/19 21:08 03/22/19 21:08 03/22/19 21:08 03/22/19 21:08 03/22/19 21:08 - Notes Notes: PHYSICAL EXAMINATION: GENERAL: Appears well, healthy, well-nourished, no acute distress. HEAD: Normocephalic, atraumatic. EYES: PERRL, conjunctiva normal, all extraocular movements intact, sclera nonicteric ENT: Moist mucous membranes. NECK: Supple, no noticeable swelling, redness, rash. Normal range of motion. LUNGS: Equal breath sounds bilaterally and clear to auscultation. No wheezes rales or rhonchi. CARDIOVASCULAR: S1-S2, regular rate, regular rhythm. Radial pulses 2+, normal. ABDOMEN: Normoactive bowel sounds. Soft, nontender, no guarding, no rebound tenderness, and no masses palpated. EXTREMITIES: Normal strength and range of motion, no pitting or edema. No cyanosis. NEUROLOGICAL: Moves all extremities upon command. Strength 5/5 in all ex tremities. PSYCH: Normal mood, normal affect. SKIN: Warm, dry. No rash, lesions. Normal skin turgor. Surgical site to right medial buttock with very small arterial bleed noted. Course - Re-evaluation Re-evalutation: 03/22/19 21:28 Patient is a very small arterial bleed. Her wound was repacked to help control bleeding. CBC will be checked. 03/22/19 23:00 Patient's hemoglobin is 6.3. The patient will be given 2 units of PRBCs. Bleeding was assessed and it is under control at this time. 03/23/19 01:25 Since the patient is receiving PRBCs, she will also receive a gram of calcium gluconate. Reassessed site. No bleeding noted. 03/23/19 02:18 Report given to MELA Henderson. She will follow up on repeat CBC. - Vital Signs Vital signs: Temp Pulse Resp BP Pulse Ox 98.2 F 93 13 145/71 H 97 03/23/19 08:01 03/23/19 06:20 03/23/19 07:01 03/23/19 07:01 03/23/19 07:01 - Laboratory Result Diagrams: 03/23/19 06:28 Laboratory results interpreted by me: 03/22/19 03/22/19 03/23/19 22:16 23:15 06:28 RBC 1.98 L 2.88 L Hgb 6.3 L 9.2 L D Hct 20.0 L 27.5 L MCV 101 H D MCHC 31.5 L RDW 21.4 H 16.6 H Crossmatch See Detail Discharge - Discharge Clinical Impression: Post-op bleeding Qualifiers: Surgical complication system/body Area: subcutaneous tissue Procedure type: non-dermatologic Qualified Code(s): L76.22 - Postprocedural hemorrhage of skin and subcutaneous tissue following other procedure Anemia Qualifiers: Anemia type: unspecified type Qualified Code(s): D64.9 - Anemia, unspecified Condition: Stable Disposition: HOME, SELF-CARE Additional Instructions: You were seen today in the emergency department for bleeding from your surgical site. The bleeding was controlled here in the emergency department. You also received 2 units of blood. Make sure you continue to apply pressure to the area. Have the home health nurse visit you tomorrow. Your labs were normal. You do not need a blood transfusion. Please follow-up with your surgeon in the next 3 to 5 days. You are also being sent home with a Rapelje Dosepak. He can take 1 tablet every 4-6 hours as needed. Please use the sparingly. Try to take Tylenol if you can. Referrals: MORENA WAYNE MD [Primary Care Provider] - Follow up as needed LUKASZ QUINTANILLA MD [ACTIVE STAFF] - Follow up in 3-5 days
[2019-03-22 23:32] LABS: ABSOLUTE EOSINOPHILS # (AUTO) 0.2 10^3/uL (0.0-0.6); ABSOLUTE LYMPHOCYTES (AUTO) 0.6 10^3/uL (0.5-4.7); ABSOLUTE MONOCYTES (AUTO) 0.4 10^3/uL (0.1-1.4); ABSOLUTE NEUT (AUTO) 3.1 10^3/uL (1.7-8.2); EOSINOPHILS % (AUTO) 5.7 % (0-6); LYMPHOCYTES % (AUTO) 13.6 % (13-45); MEAN CORPUSCULAR HEMOGLOBIN 31.8 pg (27.0-33.4); MEAN CORPUSCULAR HGB CONC 31.5 g/dL (32.0-36.0); MONOCYTES % (AUTO) 8.5 % (3-13); PLATELET COUNT 317 10^3/uL (150-450); RED BLOOD COUNT 1.98 10^6/uL (3.72-5.28); RED CELL DISTRIBUTION WIDTH 21.4 % (11.5-14.0); SEGMENTED NEUTROPHILS % (AUTO) 71.2 % (42-78); TOTAL CELLS COUNTED % (AUTO) 100 %; WHITE BLOOD COUNT 4.3 10^3/uL (4.0-10.5)
[2019-03-22 23:33] LABS: HEMOGLOBIN 6.3 g/dL (12.0-15.5)
[2019-03-22 23:36] LABS: MEAN CORPUSCULAR VOLUME 101 fl (80-97)
[2019-03-22] MEDS ORDERED: NORMAL SALINE 250 ML IV PRN (23:38)
[2019-03-22] MEDS ORDERED: OXYCODONE-ACETAMINOPHEN 5-325 MG TABLET PO ONE (23:49)
[2019-03-23] MEDS ORDERED: CALCIUM GLUCONATE 1000 MG/10 ML INJ IV ONE (01:22)
[2019-03-23] MEDS ORDERED: HYDROCODONE/ACETAMINOPHEN 5-325 MG (6 TAB/ER DISP) PO PRN (01:23)
[2019-03-23 06:49] LABS: ABSOLUTE EOSINOPHILS # (AUTO) 0.3 10^3/uL (0.0-0.6); ABSOLUTE MONOCYTES (AUTO) 0.6 10^3/uL (0.1-1.4); BASOPHILS % (AUTO) 0.8 % (0-2); EOSINOPHILS % (AUTO) 5.4 % (0-6); HEMATOCRIT 27.5 % (36.0-47.0); LYMPHOCYTES % (AUTO) 20.3 % (13-45); MEAN CORPUSCULAR HEMOGLOBIN 31.8 pg (27.0-33.4); MEAN CORPUSCULAR HGB CONC 33.3 g/dL (32.0-36.0); MONOCYTES % (AUTO) 12.4 % (3-13); PLATELET COUNT 254 10^3/uL (150-450); RED BLOOD COUNT 2.88 10^6/uL (3.72-5.28); RED CELL DISTRIBUTION WIDTH 16.6 % (11.5-14.0); SEGMENTED NEUTROPHILS % (AUTO) 61.1 % (42-78); TOTAL CELLS COUNTED % (AUTO) 100 %
[2019-03-23 06:51] LABS: HEMOGLOBIN 9.2 g/dL (12.0-15.5)
[2019-03-23 06:52] LABS: MEAN CORPUSCULAR VOLUME 95 fl (80-97)
[2019-03-23 07:43] VITALS: BP 145/71
== END 2019-03-23 12:01 | disposition home or self-care (01) ==
LOC: ER 21:01
DX: L76.22 Postprocedural hemorrhage of skin and subcutaneous tissue following other procedure (principal); Y83.8 Other surgical procedures as the cause of abnormal reaction of the patient, or of later complication, without mention of misadventure at the time of the procedure; D64.9 Anemia, unspecified; E11.9 Type 2 diabetes mellitus without complications
CPT/HCPCS: 86900; 86901; 36415; 36430; 86850; 85025; 86920; P9016; J0610; A9270; 96374; 99283

== ENCOUNTER → 2019-03-29 | Outpatient (CLI) | payer MEDICARE ==
--- NOTE | 2019-03-29 12:00 | RADIOLOGY REPORT (SQ) ---
EXAM DESCRIPTION: PELVIS AP COMPLETED DATE/TIME: 03/29/2019 11:42 am REASON FOR STUDY: CUTANEOUS ABSCESS OF BUTTOCK L02.31 CUTANEOUS ABSCESS OF BUTTOCK E11.621 TYPE 2 DIABETES MELLITUS WITH FOOT ULCER COMPARISON: None. NUMBER OF VIEWS: One view TECHNIQUE: AP Pelvis LIMITATIONS: None. FINDINGS: MINERALIZATION: Osteopenia. HIPS: No acute fracture or dislocation. No worrisome bone lesions. PELVIS AND SACRUM: No acute fracture or dislocation. No worrisome bone lesions. PUBIS AND ISCHIUM: No acute fracture. LOWER LUMBAR SPINE: No significant findings as visualized. SOFT TISSUES: Calcified uterine fibroids. Vascular calcification. OTHER: No other significant finding. IMPRESSION: Osteopenia. No acute fracture or dislocation. COMMENT: Pelvic fractures are often occult on plain radiographs. If strong clinical suspicion for f racture, recommend CT or MR. TECHNICAL DOCUMENTATION: JOB ID: [id number] [employer]- All Rights Reserved Reading location - IP/workstation name: [email or web address]
[2019-03-29 12:47] LABS: ABSOLUTE EOSINOPHILS # (AUTO) 0.3 10^3/uL (0.0-0.6); ABSOLUTE LYMPHOCYTES (AUTO) 0.8 10^3/uL (0.5-4.7); ABSOLUTE MONOCYTES (AUTO) 0.5 10^3/uL (0.1-1.4); ABSOLUTE NEUT (AUTO) 2.7 10^3/uL (1.7-8.2); BASOPHILS % (AUTO) 0.9 % (0-2); EOSINOPHILS % (AUTO) 5.9 % (0-6); HEMATOCRIT 34.6 % (36.0-47.0); HEMOGLOBIN 11.3 g/dL (12.0-15.5); MEAN CORPUSCULAR HEMOGLOBIN 31.8 pg (27.0-33.4); MEAN CORPUSCULAR HGB CONC 32.6 g/dL (32.0-36.0); MEAN CORPUSCULAR VOLUME 98 fl (80-97); MONOCYTES % (AUTO) 12.1 % (3-13); PLATELET COUNT 264 10^3/uL (150-450); RED BLOOD COUNT 3.54 10^6/uL (3.72-5.28); RED CELL DISTRIBUTION WIDTH 17.6 % (11.5-14.0); SEGMENTED NEUTROPHILS % (AUTO) 62.1 % (42-78); TOTAL CELLS COUNTED % (AUTO) 100 %; WHITE BLOOD COUNT 4.4 10^3/uL (4.0-10.5)
[2019-03-29 13:03] LABS: ALBUMIN 3.5 g/dL (3.5-5.0); ALKALINE PHOSPHATASE 89 U/L (38-126); ANION GAP 8 (5-19); ASPARTATE AMINO TRANSFERASE 36 U/L (14-36); BILIRUBIN,DIRECT 0.4 mg/dL (0.0-0.4); BILIRUBIN,TOTAL 0.6 mg/dL (0.2-1.3); BLOOD UREA NITROGEN 16 mg/dL (7-20); CALCIUM 9.5 mg/dL (8.4-10.2); CARBON DIOXIDE 27 mmol/L (22-30); CHLORIDE 109 mmol/L (98-107); GLUCOSE 75 mg/dL (75-110); POTASSIUM 5.5 mmol/L (3.6-5.0)
[2019-03-29 13:05] LABS: C-REACTIVE PROTEIN < 5.0 mg/L (<10.0)
[2019-03-29 13:26] LABS: ERYTHROCYTE SEDIMENTATION RATE 59 mm/hr (0-30)
== END ==
LOC: WC 11:12
PROVIDERS: ATTEND Nurse Practitioner Family
DX: L02.31 Cutaneous abscess of buttock (principal); E11.621 Type 2 diabetes mellitus with foot ulcer
CPT/HCPCS: 36415; 72170; 80053; 83036; 85025; 85652; 86140

== ENCOUNTER → 2019-05-01 | Outpatient (CLI) | payer MEDICARE ==
[2019-05-01 13:40] LABS: ABSOLUTE EOSINOPHILS # (AUTO) 0.1 10^3/uL (0.0-0.6); ABSOLUTE MONOCYTES (AUTO) 0.3 10^3/uL (0.1-1.4); ABSOLUTE NEUT (AUTO) 3.9 10^3/uL (1.7-8.2); BASOPHILS % (AUTO) 0.8 % (0-2); MEAN CORPUSCULAR VOLUME 95 fl (80-97); RED CELL DISTRIBUTION WIDTH 15.9 % (11.5-14.0); WHITE BLOOD COUNT 5.4 10^3/uL (4.0-10.5)
[2019-05-01 13:57] LABS: EOSINOPHILS % (AUTO) 2.6 % (0-6); HEMATOCRIT 35.9 % (36.0-47.0); LYMPHOCYTES % (AUTO) 17.8 % (13-45); MEAN CORPUSCULAR HEMOGLOBIN 31.7 pg (27.0-33.4); MEAN CORPUSCULAR HGB CONC 33.4 g/dL (32.0-36.0); MONOCYTES % (AUTO) 6.3 % (3-13); PLATELET COUNT 222 10^3/uL (150-450); RED BLOOD COUNT 3.79 10^6/uL (3.72-5.28); SEGMENTED NEUTROPHILS % (AUTO) 72.5 % (42-78); TOTAL CELLS COUNTED % (AUTO) 100 %
--- NOTE | 2019-05-01 13:57 | RADIOLOGY REPORT (SQ) ---
EXAM DESCRIPTION: SACRUM AND COCCYX COMPLETED DATE/TIME: 05/01/2019 1:43 pm REASON FOR STUDY: CUTANEOUS ABSCESS OF BUTTOCK L02.31 CUTANEOUS ABSCESS OF BUTTOCK COMPARISON: None. NUMBER OF VIEWS: Three views. TECHNIQUE: AP, lateral, and tilt views of the sacrum and coccyx. LIMITATIONS: None. FINDINGS: MINERALIZATION: Normal. BONES: No acute fracture or dislocation. No worrisome bone lesions. SOFT TISSUES: Gas in the posterior soft tissues. No foreign body. OTHER: No other significant finding. IMPRESSION: GAS IN THE POSTERIOR SOFT TISSUES. NO BONY FINDINGS. TECHNICAL DOCUMENTATION: JOB ID: [id number] [employer]- All Rights Reserved Reading location - IP/workstation name: [email or web address]
[2019-05-01 14:05] LABS: ALKALINE PHOSPHATASE 116 U/L (38-126); ANION GAP 7 (5-19); ASPARTATE AMINO TRANSFERASE 22 U/L (14-36); BILIRUBIN,DIRECT 0.1 mg/dL (0.0-0.4); BILIRUBIN,TOTAL 0.3 mg/dL (0.2-1.3); BLOOD UREA NITROGEN 31 mg/dL (7-20); CARBON DIOXIDE 29 mmol/L (22-30); CHLORIDE 103 mmol/L (98-107); GLUCOSE 142 mg/dL (75-110); TOTAL PROTEIN 8.7 g/dL (6.3-8.2)
[2019-05-01 14:07] LABS: C-REACTIVE PROTEIN < 5.0 mg/L (<10.0)
[2019-05-01 14:33] LABS: ERYTHROCYTE SEDIMENTATION RATE 71 mm/hr (0-30)
== END ==
LOC: WC 13:10
PROVIDERS: ATTEND Nurse Practitioner Family
DX: L02.31 Cutaneous abscess of buttock (principal)
CPT/HCPCS: 36415; 72220; 80053; 85025; 85652; 86140